=== PATIENT | male | born 1955 | race Caucasian/White ===

== ENCOUNTER → 2020-06-23 10:49 | Outpatient (BNVA) | payer MEDICARE, SELFPAY | PROVIDERS: Referring Provider Internal Medicine; Visit Provider Internal Medicine | DX: I25.10 Atherosclerotic heart disease of native coronary artery without angina pectoris (principal); I10 Essential (primary) hypertension; Z95.3 Presence of xenogenic heart valve | CPT/HCPCS: 99212 ==

== ENCOUNTER 2020-12-19 10:11 | Outpatient (REF) | payer MEDICARE, SELFPAY ==
[2020-12-19 11:10] LABS: Estimated Average Glucose 143 mg/dL; Hemoglobin A1c % 6.6 %
[2020-12-19 11:22] LABS: Alanine Aminotransferase 19 U/L (0-40); Albumin Level 4.3 g/dL (3.5-5.0); Alkaline Phosphatase 129 U/L (39-117); Aspartate Amino Transferase 17 U/L (5-37); Bilirubin Direct 0.2 mg/dL (0.0-0.5); Bilirubin Total 0.6 mg/dL (0.0-1.0); Cholesterol 102 mg/dL; Glucose Fasting 122 mg/dL (60-99); HDL Cholesterol 39 mg/dL; LDL Cholesterol Calculated 48 mg/dl; Total Protein 6.9 g/dL (6.5-8.0); Triglycerides 75 mg/dL
[2020-12-19 11:31] LABS: Reflex LDLD? No
== END 2020-12-19 10:12 | disposition home or self-care (01) ==
LOC: HO.LNP 10:11
PROVIDERS: Visit Provider Internal Medicine
DX: I25.811 Atherosclerosis of native coronary artery of transplanted heart without angina pectoris (principal); E11.9 Type 2 diabetes mellitus without complications
CPT/HCPCS: 80061; 80076; 82947; 83036

== ENCOUNTER 2021-06-20 11:06 | Outpatient (REF) | payer MEDICARE, SELFPAY ==
[2021-06-20 11:08] LABS: MANUAL DIFF FLAG NO
[2021-06-20 11:29] LABS: Appearance Urine CLEAR; Color Urine YELLOW; Glucose Urine UA NEG (NEG); Leukocyte Esterase Urine NEG (NEG); Nitrite Urine NEG (NEG); Specific Gravity - Urine 1.015 (1.005-1.025); Urine Blood NEG (NEG); Urine Ketones NEG (NEG); Urine Protein NEG (NEG-TRACE)
[2021-06-20 11:39] LABS: Basophils Percent Auto 0.4 % (0-2); Eosinophils Absolute Auto 0.4 X10*3/uL (0.0-0.4); Eosinophils Percent Auto 3.9 % (0-4); Hematocrit 41.9 % (42.0-52.0); Hemoglobin 13.5 g/dl (14.0-18.0); Imm Gran Abs Auto 0.04 X10*3/uL (0.00-0.03); Imm Gran Pct Auto 0.4 % (0.0-0.4); Lymphocytes Absolute Auto 3.2 X10*3/uL (1.2-4.9); Lymphocytes Percent Auto 29.6 % (20-40); Mean Corpuscular HGB Conc 32.2 g/dl (31.0-36.0); Mean Corpuscular Hemoglobin 29.3 pg (27.0-33.0); Mean Corpuscular Volume 90.9 fL (80.0-98.0); Mean Platelet Volume 10.4 fL (9.4-12.4); Monocytes Absolute Auto 1.1 X10*3/uL (0.1-1.2); Monocytes Percent Auto 10.3 % (2-11); Neutrophils Absolute Auto 5.9 x10*3/uL (2.0-8.3); Neutrophils Percent Auto 55.4 % (45-73); Platelet Count 272 X10*3/uL (160-400); Red Blood Count 4.61 X10*6/uL (4.60-5.80); Red Cell Distribution Width 14.8 % (11.0-16.0); White Blood Count 10.6 X10*3/uL (4.8-10.8)
[2021-06-20 12:19] LABS: Alanine Aminotransferase 24 U/L (0-40); Albumin Level 4.5 g/dL (3.5-5.0); Alkaline Phosphatase 116 U/L (39-117); Anion Gap 13 (12-20); Aspartate Amino Transferase 21 U/L (5-37); Bilirubin Total 0.7 mg/dL (0.0-1.0); Blood Urea Nitrogen 19 mg/dL (9-16); Calcium 9.5 mg/dL (8.4-10.2); Carbon Dioxide 27 mmol/L (22-29); Chloride 103 mmol/L (96-108); Cholesterol 123 mg/dL; Estimated Glomerular Filt Rate 45; Glucose Fasting 118 mg/dL (60-99); HDL Cholesterol 37 mg/dL; LDL Cholesterol Calculated 63 mg/dl; Potassium 4.2 mmol/L (3.3-5.1); Sodium 139 mmol/L (135-145); Total Protein 7.4 g/dL (6.5-8.0); Triglycerides 119 mg/dL
[2021-06-20 12:24] LABS: Creatinine Urine 86.08 mg/dL; Microalbum/Creatinine Ratio Ur 47.6 ug/mg cr
[2021-06-20 12:27] LABS: Estimated Average Glucose 140 mg/dL; Hemoglobin A1c % 6.5 %; Reflex LDLD? No
== END 2021-06-20 11:07 | disposition home or self-care (01) ==
LOC: HO.LNP 11:06
PROVIDERS: PCP Internal Medicine; Visit Provider Internal Medicine
DX: Z00.00 Encounter for general adult medical examination without abnormal findings (principal); I10 Essential (primary) hypertension; E11.9 Type 2 diabetes mellitus without complications
CPT/HCPCS: 80053; 80061; 81003; 82043; 83036; 84153; 85025

== ENCOUNTER 2021-08-02 07:56 | Outpatient (REF) | payer MEDICARE, SELFPAY ==
--- NOTE | ~2021-08-02 | XR_ITS ---
EXAMINATION: XR SHOULDER, RIGHT CLINICAL INFORMATION: Pain in right shoulder COMPARISON: None TECHNIQUE: Three views of the right shoulder. FINDINGS: No acute visible fracture or dislocation. Cortical thickening along the lateral aspect of the proximal to mid humeral diaphysis may represent sequela of remote trauma. Mild to moderate degenerative changes of the glenohumeral and acromioclavicular joint with joint space narrowing, sclerosis, subchondral cystic changes, and periarticular osteophyte formation. Joint spaces and alignment are otherwise maintained. Soft tissues are unremarkable. Visualized portions of the right chest are unremarkable. XR/XR shoulder RT min 2V IMPRESSION: 1. No acute visible fracture or dislocation. 2. Cortical thickening along the lateral aspect of the proximal to mid humeral diaphysis may represent sequela of remote trauma. 3. Mild to moderate degenerative changes of the glenohumeral and acromioclavicular joint.
== END 2021-08-02 07:57 | disposition home or self-care (01) ==
LOC: HO.HOSX 07:56
PROVIDERS: Visit Provider Physician Assistant
DX: M19.011 Primary osteoarthritis, right shoulder (principal); M75.81 Other shoulder lesions, right shoulder
CPT/HCPCS: 20610; 73030; 99202; J1040

== ENCOUNTER 2021-09-25 10:39 | Outpatient (REF) | payer MEDICARE, SELFPAY ==
[2021-09-25 12:03] LABS: Blood Urea Nitrogen 20 mg/dL (9-16); Estimated Glomerular Filt Rate 50
== END 2021-09-25 10:40 | disposition home or self-care (01) ==
LOC: HO.LNP 10:39
PROVIDERS: PCP Internal Medicine; Visit Provider Internal Medicine
DX: R79.89 Other specified abnormal findings of blood chemistry (principal)
CPT/HCPCS: 82565; 84520

== ENCOUNTER 2021-12-26 10:47 | Outpatient (REF) | payer MEDICARE, SELFPAY ==
[2021-12-26 12:09] LABS: Alanine Aminotransferase 79 U/L (0-40); Albumin Level 4.1 g/dL (3.5-5.0); Alkaline Phosphatase 180 U/L (39-117); Aspartate Amino Transferase 31 U/L (5-37); Bilirubin Direct 0.2 mg/dL (0.0-0.5); Bilirubin Total 0.4 mg/dL (0.0-1.0); Blood Urea Nitrogen 20 mg/dL (9-16); Cholesterol 101 mg/dL; Estimated Glomerular Filt Rate 46; Glucose Fasting 90 mg/dL (60-99); HDL Cholesterol 27 mg/dL; LDL Cholesterol Calculated 52 mg/dl; Total Protein 7.1 g/dL (6.5-8.0); Triglycerides 114 mg/dL
[2021-12-26 13:44] LABS: Estimated Average Glucose 151 mg/dL; Hemoglobin A1c % 6.9 %
[2021-12-26 13:49] LABS: Reflex LDLD? No
== END 2021-12-26 10:48 | disposition home or self-care (01) ==
LOC: HO.LNP 10:47
PROVIDERS: PCP Internal Medicine; Visit Provider Internal Medicine
DX: I10 Essential (primary) hypertension (principal); E11.9 Type 2 diabetes mellitus without complications; I25.811 Atherosclerosis of native coronary artery of transplanted heart without angina pectoris
CPT/HCPCS: 80061; 80076; 82565; 82947; 83036; 84520

== ENCOUNTER 2022-02-16 07:06 | Emergency (ER) | payer MEDICARE, SELFPAY ==
--- NOTE | ~2022-02-16 | XR_ITS ---
EXAMINATION: XR CHEST CLINICAL INFORMATION: Cough. COMPARISON: Chest radiograph dated 05/07/2017. TECHNIQUE: 2 views of the chest were obtained. FINDINGS: Interval sternal wires and valvuloplasty. Stable cardiomediastinal silhouette. No pleural effusion or pneumothorax. No airspace consolidation. XR/XR chest 2V IMPRESSION: No acute cardiopulmonary findings.
[2022-02-16 07:10] VITALS: BP 161/101; PULSE 58; RESP 20; TEMP 36.6; O2SAT 99; BMI 28.3
[2022-02-16 07:30] LABS: COVID-19 Test Positive (Negative)
--- NOTE | 2022-02-16 09:03 | ED_ITS ---
HPI - URI/Sore Throat General Chief Complaint: Upper Respiratory Symptoms Stated Complaint: fever/diarrhea/dizziness Time Seen by Provider: 02/16/22 09:03 Source: patient Mode of arrival: ambulatory Limitations: no limitations History of Present Illness HPI Narrative: 66 yo male with history of pre-diabetes, CAD, HTN, chronic pain, HLD presents to the ER from home reporting 4-5 days of headaches, intermittent subjective fevers, body aches, dry cough and feeling slightly weak. He reports his girlfriend was recently diagnosed with COVID-19. He denies any SOB or chest pain. He is vaccinated and boosted. He has been taking tylenol with good effect. He reported diarrhea on days 1-2 but now resolved. Tolerating normal PO. No abdomainal pain. MD elicited complaint: fever, cough and nasal congestion Onset (ago): day(s) (4) Consistency: constant Severity: moderate Able to tolerate fluids by mouth: Yes Exacerbating factors: nothing Relieving factors: OTC cold medicine Associated symptoms: fever, chills, myalgias, headache, nasal congestion, sore throat and cough Treatments prior to arrival: none Related Data Home Medications Medication Instructions Recorded Confirmed aspirin 81 mg tablet,delayed 81 mg PO DAILY 06/23/20 06/23/20 release lisinopril 40 mg tablet 40 mg PO DAILY 06/23/20 06/23/20 metoprolol tartrate 50 mg tablet 50 mg PO BID 06/23/20 06/23/20 tramadol 50 mg tablet mg PO 06/23/20 06/23/20 Previous Rx's Medication Instructions Recorded atorvastatin 40 mg tablet 40 mg PO DAILY #90 tabs 09/20/20 amlodipine 10 mg tablet 10 mg PO DAILY #90 tabs 09/04/21 Allergies Allergy/AdvReac Type Severity Reaction Status Date / Time No Known Allergies Allergy Verified 08/02/21 08:58 Review of Systems Review of Systems: Constitutional: +Fever, + Chills ENT/Mouth: +sore throat, No Rhinorrhea, No Swallowing Difficulty Cardiovascular: No Chest Pain, No SOB, No Orthopnea, No Edema Respiratory: + Cough, No Sputum, No Wheezing, No dyspnea Gastrointestinal: No Nausea, No Vomiting, + Diarrhea, No abdominal Pain Musculoskeletal: No joint pain, No Myalgias Skin: No Skin Lesions, No rash Neuro: No Weakness, No Numbness, No Dizziness, No Headache Psych: No Anxiety/Panic, No Depression Heme/Lymph: No Bruising, No Lymphadenopathy PMFSH Past Medical History Medical History Atherosclerotic cardiovascular disease Essential hypertension Surgical History History of aortic valve replacement (~09/27/17) History of cardiac catheterization (~08/07/17) Family History Family History Father No problems noted. Mother No problems noted. Social History Social History (Updated 08/02/21 @ 09:29 by You Lawson) Advance Directives: No Advance Directives Information Provided: Yes Current occupational status: employed and disabled Current occupation: [employer] Physical Exam Vital Signs: Vital Signs: Last Vital Signs Temp 97.9 F 02/16/22 07:10 Pulse 58 02/16/22 07:10 Resp 20 02/16/22 07:10 BP 161/101 H 02/16/22 07:10 Pulse Ox 99 02/16/22 07:10 O2 Del Method 02/16/22 07:10 BMI result Body Mass Index 28.3 Appearance: Alert. Oriented X3. No acute distress. Eyes: Pupils equal, round and reactive to light. ENT: Pharynx normal. Neck: Normal inspection. Neck supple. CVS: Normal heart rate and rhythm. Pulses normal. Respiratory: No respiratory distress. Breath sounds normal. Abdomen: Soft and nontender. +BS x4 Skin: Skin warm and dry. Normal skin color. Normal skin turgor. No rashes. Extremities: No lower extremity edema. Neuro: Oriented X 3. Grossly normal, nonfocal Course Course Course Narrative: 66-year-old male presents to the ER for flu-like symptoms for the last 4 days. He has been run his girlfriend who is COVID positive. He is fully vaccinated. On arrival to the ER today his vital signs are within normal limits, SpO2 99% on room air. No respiratory distress and is lungs are clear on examination. He has had symptoms for 4 5 days now. He does not qualify for antibodies. Risks and benefits of paxlovid discussed, will defer. At this time patient is stable for discharge home with supportive care. We discussed return precautions. Sta ble for DC home. MDM - URI/Sore Throat Lab Data Labs: Lab Results 02/16/22 Range/Units 07:18 COVID-19 (DC) Positive A (Negative) COVID-19 Clin Com See Note Critical Care Time Critical Care Time Critical Care Time: No Discharge Plan Discharge Clinical Impression: COVID-19 Patient Disposition: Home, Self-Care Instructions: Covid-19 Viral Syndrome and Novel Coronavirus (ED) Hey/Ath Additional Instructions: You were found to be COVID-19 POSITIVE today. Your chest x-ray and oxygen levels were normal. Rest. Drink plenty of fluids. Do not go out in public for the next 6-7 days. Take over the counter cold/flu medications as needed for your symptoms. Take Tylenol and/or Motrin as needed for fevers and body aches. Follow up with your doctor this week. If you shortness of breath worsens, if you develop difficulty breathing or any other concerning symptom come back to the ER for further evaluation. Prescriptions: No Action atorvastatin 40 mg tablet 40 mg PO DAILY Qty: 90 3RF amlodipine 10 mg tablet 10 mg PO DAILY Qty: 90 2RF Rx Instructions: Please call and schedule cardiology appt lisinopril 40 mg tablet 40 mg PO DAILY aspirin 81 mg tablet,delayed release (DR/EC) 81 mg PO DAILY metoprolol tartrate 50 mg tablet 50 mg PO BID tramadol 50 mg tablet PO Referrals: Hakeem Nixon MD [Primary Care Provider] - (COVID+) Stand Alone Forms: Work/School Release
== END 2022-02-16 09:36 | disposition home or self-care (01) ==
PROVIDERS: Emergency Provider Student in an Organized Health Care Education/Training Program; PCP Internal Medicine
DX: U07.1 COVID-19 (principal); R53.1 Weakness
CPT/HCPCS: 71046; 87635; 99283

== ENCOUNTER 2022-03-01 10:39 | Outpatient (REF) | payer MEDICARE, SELFPAY ==
[2022-03-01 11:23] LABS: Blood Urea Nitrogen 19 mg/dL (9-16)
== END 2022-03-01 10:40 | disposition home or self-care (01) ==
LOC: HO.LNP 10:39
PROVIDERS: Visit Provider Internal Medicine
DX: R79.9 Abnormal finding of blood chemistry, unspecified (principal)
CPT/HCPCS: 84520

== ENCOUNTER 2022-06-28 10:58 | Outpatient (REF) | payer MEDICARE, SELFPAY ==
[2022-06-28 11:03] LABS: MANUAL DIFF FLAG NO
[2022-06-28 11:44] LABS: Basophils Absolute Auto 0.1 X10*3/uL (0.0-0.2); Basophils Percent Auto 0.4 % (0-2); Eosinophils Absolute Auto 0.5 X10*3/uL (0.0-0.4); Eosinophils Percent Auto 4.2 % (0-4); Hematocrit 41.1 % (42.0-52.0); Hemoglobin 13.5 g/dl (14.0-18.0); Imm Gran Abs Auto 0.03 X10*3/uL (0.00-0.03); Imm Gran Pct Auto 0.3 % (0.0-0.4); Lymphocytes Absolute Auto 2.8 X10*3/uL (1.2-4.9); Lymphocytes Percent Auto 24.9 % (20-40); Mean Corpuscular HGB Conc 32.8 g/dl (31.0-36.0); Mean Corpuscular Hemoglobin 29.5 pg (27.0-33.0); Mean Corpuscular Volume 89.9 fL (80.0-98.0); Mean Platelet Volume 10.2 fL (9.4-12.4); Monocytes Absolute Auto 1.2 X10*3/uL (0.1-1.2); Neutrophils Absolute Auto 6.7 x10*3/uL (2.0-8.3); Neutrophils Percent Auto 59.2 % (45-73); Platelet Count 233 X10*3/uL (160-400); Red Blood Count 4.57 X10*6/uL (4.60-5.80); Red Cell Distribution Width 14.6 % (11.0-16.0); White Blood Count 11.3 X10*3/uL (4.8-10.8)
[2022-06-28 11:55] LABS: Estimated Average Glucose 137 mg/dL; Hemoglobin A1c % 6.4 %
[2022-06-28 12:04] LABS: Appearance Urine Clear; Color Urine Yellow; Glucose Urine UA Negative (Negative); Leukocyte Esterase Urine Negative (Negative); Nitrite Urine Negative (Negative); Urine Blood Negative (Negative); Urine Ketones Negative (Negative); Urine Protein Negative (Neg-Trace)
[2022-06-28 12:10] LABS: Bacteria Urine None Seen (None Seen); Hyaline Casts Urine 0-2 /LPF (0-2); RBC Urine 0-2 /HPF (0-2); Squamous Epithelial Cell Urine 0-2 /HPF (0-2); WBC Urine 0-5 /HPF (0-5)
[2022-06-28 12:13] LABS: Alanine Aminotransferase 18 U/L (0-40); Albumin Level 4.4 g/dL (3.5-5.0); Alkaline Phosphatase 133 U/L (39-117); Anion Gap 12 (12-20); Aspartate Amino Transferase 20 U/L (5-37); Bilirubin Total 0.5 mg/dL (0.0-1.0); Blood Urea Nitrogen 18 mg/dL (9-16); Calcium 9.5 mg/dL (8.4-10.2); Carbon Dioxide 28 mmol/L (22-29); Chloride 105 mmol/L (96-108); Cholesterol 118 mg/dL; Estimated Glomerular Filt Rate 50; Glucose Fasting 144 mg/dL (60-99); HDL Cholesterol 42 mg/dL; LDL Cholesterol Calculated 64 mg/dl; PSA,Total (Free>4and<10) 0.59 ng/mL (0.00-4.00); Potassium 4.3 mmol/L (3.3-5.1); Sodium 141 mmol/L (135-145); Total Protein 7.3 g/dL (6.5-8.0); Triglycerides 64 mg/dL
[2022-06-28 12:54] LABS: Creatinine Urine 134.77 mg/dL; Microalbum/Creatinine Ratio Ur 16.3 ug/mg cr
== END 2022-06-28 10:59 | disposition home or self-care (01) ==
LOC: HO.LNP 10:58
PROVIDERS: Visit Provider Internal Medicine
DX: Z00.00 Encounter for general adult medical examination without abnormal findings (principal); Z12.5 Encounter for screening for malignant neoplasm of prostate; I10 Essential (primary) hypertension; E11.9 Type 2 diabetes mellitus without complications; I25.811 Atherosclerosis of native coronary artery of transplanted heart without angina pectoris
CPT/HCPCS: 80053; 80061; 81001; 82043; 83036; 84153; 85025

== ENCOUNTER → 2022-08-14 15:41 | Outpatient (REF) | payer MEDICARE, SELFPAY ==
--- NOTE | 2022-08-14 15:44 | CA_ITS ---
Transthoracic Echocardiogram Amended Patient (Last, First, Middle): Rosas Kirkland, Gender: Male Date of : 1955 Age: 67 Procedure Date: 08/14/2022 Procedure Type: Transthoracic Echocardiogram Location: OP Height: 165.1 cm Weight: 74.84 kg BSA: 1.82 m2 Heart Rate: bpm BP: 108 / 60 mmHg Dairy Manager: ROSENDA Referring MD: Donal Hernandez MD Health Education Director: Maynor Colon MD Symptoms: Z95.3 - Presence of xenogenic heart valve Study Quality: Fair ECG Rhythm: Atrial Fibrillation Conclusions: - 1. Normal LV systolic function with mild LVH with impaired relaxation filling pattern with borderline elevated filling pressures 2. Moderately dilated left atrium 3. Normally function bioprosthetic aortic valve with mean gradient of 9 mmHg 4. Possible mild mitral stenosis 5. Normal RV systolic pressure with reduced RV systolic function 6. No gross pericardial effusion Findings Left Ventricle Normal left ventricular size and systolic function. There is mildly increased left ventricular wall thickness. The visually estimated ejection fraction is between 55-60%. Spectral Doppler is indicative of an impaired relaxation filling pattern. E/E prime ratio is between 8 and 15 consistent with indeterminate filling pressures. Peak GLS is -15.7%, which is reduced Right Ventricle Normal right ventricular cavity size. There is moderately decreased right ventricular systolic function. Atria The left atrium is moderately dilated. The right atrium is normal in size. Aortic Valve A bioprosthetic aortic valve is present. The prosthetic aortic valve appears to be functioning normally. The mean gradient is 9 mmHg. Mitral Valve There is moderate anterior and posterior mitral leaflet thickening. There is mild mitral annular calcification. There is no mitral valve regurgitation. There is mild mitral valve stenosis. Pulmonic Valve The pulmonic valve was not well visualized. Tricuspid Valve Likely normal tricuspid valve structure and function. There is mild tricuspid valve regurgitation. The right ventricular systolic pressure is normal. The right ventricular systolic pressure is 21 mmHg. Normal right atrial pressure. There is no evidence of pulmonary hypertension. Great Vessels All visible segments of the aorta are normal in size. The pulmonary artery was not well visualized. Venous The inferior vena cava is normal in size and collapses greater than 50% with inspiration. Pericardium/Pleural There is no evidence of pericardial effusion. Prior Study Comparison No significant change compared to prior study dated: 02/09/2020. Measurements 2D Linear Measurements IVSd: 1.33 0.6-0.9/0.6-1.0 cm LVIDd: 4.39 3.9-5.3/4.2-5.9 cm LVIDd Index: 2.41 2.4-3.2/2.2-3.1 cm/m2 LVIDs: 2.89 2.0-3.6 cm LVPWd: 1.30 0.7-1.1 cm LA Diam: 4.10 2.7-3.8/3.0-4.0 cm LAIDs Index: 2.25 1.5-2.3 cm/m2 LV Mass: 271.80 67-162/88-224 g LV Mass Index: 149.34 43-95/49-115 g/m2 LVOT Diam: 2.10 3.0+(-)1.3 cm 2D Volumes LA Vol: 49.00 2D Systolic Function EF 4C: 60.70 >55% EF 2C: 55.40 >55% EF BiP: 58.80 >55% Mitral Valve MV VTI: 0.50 MV Pk Garrett: 1.24 MV Mn Garrett: 0.67 MV Pk Grad: 6.00 MV Mn Grad: 2.00 MV Pk E: 1.14 MV PK A: 1.05 MV Decel Time: 513.00 E/A: 1.10 E'Lateral: 9.03 E'Medial: 6.42 E/E' Med: 17.80 E/E' Lat: 12.60 PHT: 150.00 MVA PHT: 1.47 MVA Continuity: 1.58 Decel [place]: 2.21 Aortic Valve AoV Pk Garrett: 2.05 AoV Mn Garrett: 1.41 AoV VTI: 0.42 AoV Pk Grad: 17.00 Aov Mn Grad: 9.00 [place] Cont.VTI: 1.88 LVOT LVOT Pk Garrett: 0.97 LVOT Mn Garrett: 0.69 LVOT VTI: 0.23 LVOT Pk Grad: 4.00 LVOT Mn Grad: 2.00 LVOT Diam: 2.10 LVOT Area: 3.46 Diastolic Function MV Pk E: 1.14 MV Pk A: 1.05 E/A: 1.10 E'Medial: 6.42 E/E' Med: 17.80 E' Laterial: 9.03 E/E' Lat: 12.60 Right Ventricle TAPSE (mm): 18.00 TVS' Garrett: 11.00 Tricuspid Valve TR Pk Garrett: 2.13 TR Pk Grad: 18.00 RA Press: 3.00 RVSP: 21.00 Great Vessels Aorta Ao Asc: 3.40 2.1-3.4 cm Updated in Other Vendor System with Status of Final Maynor Colon MD electronically signed on 08/16/2022 4:48:00 PM with status of Final
== END ==
LOC: HO.CARD 15:41
PROVIDERS: PCP Internal Medicine; Visit Provider Internal Medicine
DX: Z95.3 Presence of xenogenic heart valve (principal)
CPT/HCPCS: 93306; 93356

== ENCOUNTER → 2022-09-06 14:30 | Outpatient (BNVA) | payer MEDICARE, SELFPAY | PROVIDERS: PCP Internal Medicine; Referring Provider Internal Medicine; Visit Provider Internal Medicine | DX: I25.10 Atherosclerotic heart disease of native coronary artery without angina pectoris (principal); I10 Essential (primary) hypertension; I34.2 Nonrheumatic mitral (valve) stenosis; Z95.3 Presence of xenogenic heart valve | CPT/HCPCS: 93005; 99212 ==

== ENCOUNTER 2022-10-01 07:36 | Emergency (ER) | payer OTHER, SELFPAY ==
[2022-10-01 07:39] VITALS: BP 151/82; PULSE 65; RESP 14; TEMP 36.7; O2SAT 100; BMI 28.3
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
== END 2022-10-01 08:28 | disposition home or self-care (01) ==
PROVIDERS: Emergency Provider Student in an Organized Health Care Education/Training Program; PCP Internal Medicine
DX: S39.012A Strain of muscle, fascia and tendon of lower back, initial encounter (principal); M54.2 Cervicalgia; R51.9 Headache, unspecified; V43.52XA Car driver injured in collision with other type car in traffic accident, initial encounter; Y93.9 Activity, unspecified; Y92.410 Unspecified street and highway as the place of occurrence of the external cause; Y99.9 Unspecified external cause status; Z79.899 Other long term (current) drug therapy
CPT/HCPCS: 99283; 99284

== ENCOUNTER 2022-12-28 11:55 | Outpatient (REF) | payer MEDICARE, SELFPAY ==
[2022-12-28 12:41] LABS: Estimated Average Glucose 131 mg/dL; Hemoglobin A1c % 6.2 %
[2022-12-28 13:04] LABS: Alanine Aminotransferase 20 U/L (0-40); Albumin Level 4.2 g/dL (3.5-5.0); Alkaline Phosphatase 133 U/L (39-117); Aspartate Amino Transferase 23 U/L (5-37); Bilirubin Direct 0.2 mg/dL (0.0-0.5); Bilirubin Total 0.6 mg/dL (0.0-1.0); Cholesterol 133 mg/dL; Glucose Fasting 108 mg/dL (60-99); HDL Cholesterol 45 mg/dL; LDL Cholesterol Calculated 70 mg/dl; Total Protein 6.9 g/dL (6.5-8.0); Triglycerides 90 mg/dL
[2022-12-28 14:04] LABS: Reflex LDLD? No
== END 2022-12-28 11:56 | disposition home or self-care (01) ==
LOC: HO.LNP 11:55
PROVIDERS: Visit Provider Internal Medicine
DX: E11.9 Type 2 diabetes mellitus without complications (principal); I25.811 Atherosclerosis of native coronary artery of transplanted heart without angina pectoris
CPT/HCPCS: 80061; 80076; 82947; 83036

== ENCOUNTER 2023-06-28 10:46 | Outpatient (REF) | payer MEDICARE, SELFPAY ==
[2023-06-28 10:54] LABS: MANUAL DIFF FLAG NO
[2023-06-28 10:59] LABS: Basophils Absolute Auto 0.1 X10*3/uL (0.0-0.2); Basophils Percent Auto 0.5 % (0-2); Eosinophils Absolute Auto 0.5 X10*3/uL (0.0-0.4); Eosinophils Percent Auto 4.4 % (0-4); Hematocrit 40.7 % (42.0-52.0); Hemoglobin 13.4 g/dl (14.0-18.0); Imm Gran Abs Auto 0.04 X10*3/uL (0.00-0.03); Imm Gran Pct Auto 0.3 % (0.0-0.4); Lymphocytes Absolute Auto 3.3 X10*3/uL (1.2-4.9); Lymphocytes Percent Auto 27.6 % (20-40); Mean Corpuscular HGB Conc 32.9 g/dl (31.0-36.0); Mean Corpuscular Hemoglobin 29.6 pg (27.0-33.0); Mean Corpuscular Volume 89.8 fL (80.0-98.0); Mean Platelet Volume 9.8 fL (9.4-12.4); Monocytes Absolute Auto 1.3 X10*3/uL (0.1-1.2); Monocytes Percent Auto 10.8 % (2-11); Neutrophils Absolute Auto 6.8 x10*3/uL (2.0-8.3); Neutrophils Percent Auto 56.4 % (45-73); Platelet Count 261 X10*3/uL (160-400); Red Blood Count 4.53 X10*6/uL (4.60-5.80); Red Cell Distribution Width 14.8 % (11.0-16.0)
[2023-06-28 11:01] LABS: Appearance Urine Clear; Color Urine Yellow; Glucose Urine UA Negative (Negative); Leukocyte Esterase Urine Negative (Negative); Nitrite Urine Negative (Negative); PH 5.5 (5.0-9.0); Specific Gravity - Urine 1.015 (1.005-1.025); Urine Blood Negative (Negative); Urine Ketones Negative (Negative); Urine Protein Negative (Neg-Trace)
[2023-06-28 11:05] LABS: Bacteria Urine None Seen (None Seen); Hyaline Casts Urine 0-2 /LPF (0-2); RBC Urine 0-2 /HPF (0-2); Squamous Epithelial Cell Urine 0-2 /HPF (0-2); WBC Urine 0-5 /HPF (0-5)
[2023-06-28 11:31] LABS: Alanine Aminotransferase 13 U/L (0-40); Albumin Level 4.5 g/dL (3.5-5.0); Alkaline Phosphatase 143 U/L (39-117); Anion Gap 13 (12-20); Aspartate Amino Transferase 17 U/L (5-37); Bilirubin Total 0.3 mg/dL (0.0-1.0); Blood Urea Nitrogen 19 mg/dL (9-16); Calcium 9.5 mg/dL (8.4-10.2); Carbon Dioxide 30 mmol/L (22-29); Chloride 105 mmol/L (96-108); Cholesterol 125 mg/dL (<200); Estimated Glomerular Filt Rate 44; Glucose Random 131 mg/dL (60-115); HDL Cholesterol 41 mg/dL (>40); LDL Cholesterol Calculated 58 mg/dL (<100); Sodium 143 mmol/L (135-145); Triglycerides 131 mg/dL (<150)
[2023-06-28 11:45] LABS: PSA,Total (Free>4and<10) 0.73 ng/mL (0.00-4.00)
[2023-06-28 11:52] LABS: Creatinine Urine 86.06 mg/dL; Microalbum/Creatinine Ratio Ur 16.2 ug/mg cr (<30)
[2023-06-28 11:58] LABS: Estimated Average Glucose 143 mg/dL; Hemoglobin A1c % 6.6 % (<6.0)
== END 2023-06-28 10:47 | disposition home or self-care (01) ==
LOC: HO.LNP 10:46
PROVIDERS: Visit Provider Internal Medicine
DX: Z00.00 Encounter for general adult medical examination without abnormal findings (principal); I10 Essential (primary) hypertension; E11.9 Type 2 diabetes mellitus without complications; Z12.5 Encounter for screening for malignant neoplasm of prostate
CPT/HCPCS: 80053; 80061; 81001; 82043; 82570; 83036; 84153; 85025

== ENCOUNTER 2023-09-10 15:15 | Outpatient (AMB) | payer MEDICARE, SELFPAY ==
--- NOTE | 2023-09-10 15:19 | MHC.OFFVIS ---
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 In 2018, he had symptomatic aortic valve stenosis that led to bioprosthetic valve replacement. Overall, he feels fine. No complaints like angina or shortness of breath or in fact anything cardiac sounding. Seems to be getting along okay. [facility] Medical History Atherosclerotic cardiovascular disease Essential hypertension Surgical History History of cardiac catheterization (~08/07/17) History of aortic valve replacement (~09/27/17) Family History Father No problems noted. Mother No problems noted. Social History Alcohol intake: current Alcohol intake frequency: a few times a week Patient Tobacco Use Status: Current someday Tobacco user Tobacco use type: Cigarette Cigarettes Per Day: 8 Current occupational status: employed and disabled Current occupation: [employer] Review of Systems Const Denies weakness ENT Denies dizziness Card Denies chest pain with activity, Denies syncope, Denies rapid heart rate, Denies pedal edema, Denies edema, Denies leg edema, Denies lightheadedness, Denies palpitations, Denies dyspnea on exertion and Denies orthopnea Resp Denies cough and Denies dyspnea on exertion GI Denies hematochezia and Denies change in stool character Musc Denies abnormal gait, Denies muscle cramps, Denies muscle weakness, Denies numbness, Denies radiating pain into limb and Denies tingling Neuro Denies abnormal gait, Denies dizziness, Denies syncope, Denies numbness, Denies tingling and Denies weakness Endo Denies palpitations Physical Exam Vital Signs: Last Vital Signs Pulse 61 09/10/23 15:21 BP 108/74 09/10/23 15:21 BMI result Body Mass Index 27.5 Const General: comfortable and no acute distress Orientation/consciousness: patient oriented x3 HEENT Other: Unremarkable Head: Yes normal to inspection Neck Neck: Yes normal visual inspection Chest Chest palpation & inspection: normal inspection of the chest Resp Auscultation: clear to auscultation bilaterally Cardio Palpation: normal PMI Heart sounds: S1 normal heart sound present, S2 normal heart sound present, no gallops, Murmur heart sound present systolic II/ and no rubs GI Palpation (GI): Soft to palpation Back/Spine/Pelvis Other: unremarkable Skin General skin exam: no rashes or lesions noted Neuro General: patient oriented x3 Extrem General: Yes normal to inspection Psych Mental Status: mental status grossly normal Office Procedures EKG Details: EKG with sinus rhythm at 61/Min; no significant ST-T changes and otherwise unremarkable. [place]. [id number], Complete Assessment & Plan Assessment & Plan (1) Status post aortic valve replacement with bioprosthetic valve: Code(s): Z95.3 - Presence of xenogenic heart valve Plan: In the last echocardiogram, normally functioning bioprosthetic aortic valve with a mean gradient of 9 mm Hg. Continue long-term aspirin. Infective endocarditis prophylaxis per protocol. (2) Nonrheumatic mitral (valve) stenosis: Code(s): I34.2 - Nonrheumatic mitral (valve) stenosis Plan: Echocardiogram with moderate anterior/posterior mitral valve thickening and mild mitral annular calcification. Suspected mild mitral stenosis. Clinically, he is got absolutely no symptoms. (3) Atherosclerotic cardiovascular disease: Code(s): I25.10 - Atherosclerotic heart disease of [place] coronary artery without angina pectoris Plan: Preoperative cardiac catheterization had mild disease in the LAD but otherwise unremarkable. Continue statins. Last LDL 58mg/dL. (4) Essential hypertension: Code(s): I10 - Essential (primary) hypertension Plan: Stable. On metoprolol, amlodipine, lisinopril. Coding Level of Care Code Est Pt Level 4 (66637) Diagnoses Status post aortic valve replacement with bioprosthetic valve Z95.3 Nonrheumatic mitral (valve) stenosis I34.2 Atherosclerotic cardiovascular disease I25.10 Essential hypertension I10 CPT Codes EKG - CPT: 40170-[id number], Complete ([id number])
[2023-09-10 15:21] VITALS: BP 108/74; PULSE 61; BMI 27.5
== END 2023-09-10 15:34 | disposition home or self-care (01) ==
PROVIDERS: PCP Internal Medicine; Visit Provider Internal Medicine
DX: Z95.3 Presence of xenogenic heart valve (principal); I34.2 Nonrheumatic mitral (valve) stenosis; I25.10 Atherosclerotic heart disease of native coronary artery without angina pectoris; I10 Essential (primary) hypertension
CPT/HCPCS: 93010; 99214

== ENCOUNTER → 2023-09-10 15:15 | Outpatient (BNVA) | payer MEDICARE, SELFPAY | PROVIDERS: Visit Provider Internal Medicine | DX: I34.2 Nonrheumatic mitral (valve) stenosis (principal); I25.10 Atherosclerotic heart disease of native coronary artery without angina pectoris; I10 Essential (primary) hypertension; Z95.3 Presence of xenogenic heart valve | CPT/HCPCS: 93005; 99212 ==

== ENCOUNTER 2023-10-16 11:48 | Day surgery (SDC) | payer MEDICARE, SELFPAY ==
[2023-10-14 11:11] VITALS: BMI 27.5
[2023-10-16 12:40] VITALS: BMI 26.7
[2023-10-16 13:01] VITALS: BP 116/75; PULSE 63; RESP 18; TEMP 36.2; O2SAT 98
[2023-10-16] MEDS: Lactated Ringers 1,000 ML 100 ML IVCONT (13:12)
--- NOTE | 2023-10-16 13:14 | MHC.SHP ---
Pre-Procedural Eval Section A - 24 Hr Update-Section A only Date of Service: 10/16/23 The patient is an INPATIENT: No Changes since office visit: No Cold of Flu in the past 2 weeks, No New Medical Problems, No Changes in Medication and No Patient answered all questions The patient has been examined within 24 hours of the surgical procedure. The History & Physical has been completed within 30 days and I have reviewed it.: Yes Section B - Complete if H&P > 30 days Chief Complaint: Encounter for screening for malignant neoplasm of Allergies: Allergies Allergy/AdvReac Type Severity Reaction Status Date / Time No Known Allergies Allergy Verified 09/10/23 15:22 Plan I have reviewed the history and physical and performed a pertinent physical examination on my patient. No changes have occurred unless specified. Time Spent With Patient Time: Total time managing care of this patient today ____ minutes.
--- NOTE | 2023-10-16 13:21 | HO.ANESPROP2 ---
[facility] Active Problems Active Problems: All Active Problems Nonrheumatic mitral (valve) stenosis (Acute) COVID-19 (Acute) Tendinitis of right rotator cuff (Acute) Arthritis of right acromioclavicular joint (Acute) Status post aortic valve replacement with bioprosthetic valve (Acute) Essential hypertension (Acute) Atherosclerotic cardiovascular disease (Acute) Past Medical History Medical History Non-rheumatic mitral valve stenosis Aortic stenosis Back pain Essential hypertension Atherosclerotic cardiovascular disease Family History Family History Father No problems noted. Mother No problems noted. Family history of problems with anesthesia: No Surgical History Surgical History H/O colonoscopy Hx of hernia repair History of cardiac catheterization (~08/07/17) History of aortic valve replacement (~09/27/17) History of Problems with Anesthesia: No Social History Social History Alcohol intake: current Alcohol intake frequency: a few times a week Patient Tobacco Use Status: Current everyday Tobacco user Tobacco use type: Cigarette Cigarettes Per Day: 4 Years Smoked: 60 Use of substances other than those prescribed or required for medical reasons: No Are you DNR?: No Advance Directives: No Advance Directives Information Provided: Yes Current occupational status: employed and disabled Current occupation: [employer] Meds Allergies Allergy/AdvReac Type Severity Reaction Status Date / Time No Known Allergies Allergy Verified 09/10/23 15:22 Active Medications: Current Medications Lactated Ringer's (Lr) 1,000 mls @ 100 mls/hr IVCONT .Q10H AMANDO Last Admin: 10/16/23 13:12 Dose: 100 mls/hr Ondansetron HCl (Ondansetron Hcl 4 Mg/2 Ml Vial) 4 mg IVPUSH ONCE PRN PRN Reason: Nausea and Vomiting Stop: 10/16/23 13:27 Home Medications ?Medication ?Instructions ?Recorded ?Confirmed ?Last Taken ?Type aspirin 81 mg tablet,delayed 81 mg PO DAILY 06/23/20 10/16/23 10/09/23 History release lisinopril 40 mg tablet 40 mg PO DAILY 06/23/20 10/16/23 10/16/23 09:00 History metoprolol tartrate 50 mg tablet 50 mg PO BID 06/23/20 10/14/23 Unknown History tramadol 50 mg tablet 50 mg PO DAILY PRN Pain 09/06/22 10/14/23 Unknown History Exam Height,Weight and Vital Signs: Height 5 ft 5 in Weight 72.688 kg Last Vital Signs Temp 97.2 F 10/16/23 13:01 Pulse 63 10/16/23 13:01 Resp 18 10/16/23 13:01 BP 116/75 10/16/23 13:01 Pulse Ox 98 10/16/23 13:01 O2 Del Method Room Air 10/16/23 13:01 Airway Mallampati Class: II TM Dist: >3cm Neck ROM: Full Denture: Upper and Lower Heart: rrr Lungs: clear Assessment and Plan Final Anesthetic Review Family History of Problems with Anesthesia: No History of Problems with Anesthesia: No NPO: Yes ASA Class: III Final Preanesthetic Review: No Changes in Pt Med Stat, Meds/Allgs Chart Reviewed, Consent Obtained/Reviewed and Anes Risks/Benef Reviewed Patient Risk: Intermediate Procedure Risk: Low Anesthetic Plan Anesthetic Plan: MAC: Disposition: Standard PACU
[2023-10-16 15:08] VITALS: BP 118/78; PULSE 62; RESP 16; TEMP 36.2; O2SAT 96
[2023-10-16 15:23] VITALS: BP 138/80; PULSE 67; RESP 15; O2SAT 98
[2023-10-16 15:38] VITALS: BP 142/86; PULSE 58; RESP 16; O2SAT 99
[2023-10-16 15:46] VITALS: TEMP 36.2
--- NOTE | 2023-10-16 21:32 | OP_ITS ---
DATE OF SERVICE: 10/16/2023 SURGEON: Yoseph Maldonado MD INDICATIONS: Colon cancer screening. PREOPERATIVE DIAGNOSIS: POSTOPERATIVE DIAGNOSIS: PROCEDURE PERFORMED: Colonoscopy to the terminal ileum with biopsy and snare polypectomy. ESTIMATED BLOOD LOSS: COMPLICATIONS: ANESTHESIA: Monitored anesthesia care. ASSISTANTS: SPECIMENS: DESCRIPTION OF PROCEDURE: A history and physical was performed. The risks and benefits of the procedure were explained to the patient. Informed consent was obtained. The patient was placed in the left lateral decubitus position. A digital rectal exam was performed and was found to be normal. The Olympus pediatric video colonoscope was introduced into the rectum and advanced to the cecum. The cecum was identified by transillumination, palpation, and identification of ileocecal valve. Examination was performed. The scope was removed. He tolerated the procedure well and was returned to the recovery area in stable condition. FINDINGS: The terminal ileum was examined and appeared normal. The visualized colonic mucosa was normal. The quality of the prep was good. Three polyps were identified, 2 removed with a cold snare, 1 was removed with a biopsy forceps. All were less than 10 mm. These were located at 60 cm, 40 cm, and 20 cm. Retroflexed examination showed moderately large internal hemorrhoids. IMPRESSION: Colon polyps. RECOMMENDATION: Follow up the biopsy results. MD SMILEY Diaz/PRATIMA / [phone]
== END 2023-10-16 16:11 | disposition home or self-care (01) ==
PROVIDERS: PCP Internal Medicine; Visit Provider Internal Medicine Gastroenterology
PROC: 0DJD8ZZ Inspection of Lower Intestinal Tract, Via Natural or Artificial Opening Endoscopic (ICD-10-PCS; CPT 45378; principal; 2023-10-16 13:30)
DX: Z12.11 Encounter for screening for malignant neoplasm of colon (principal); Z86.010 Personal history of colon polyps; D12.4 Benign neoplasm of descending colon; D12.5 Benign neoplasm of sigmoid colon; K64.8 Other hemorrhoids; I25.10 Atherosclerotic heart disease of native coronary artery without angina pectoris; I10 Essential (primary) hypertension; Z79.899 Other long term (current) drug therapy; Z79.82 Long term (current) use of aspirin; F17.210 Nicotine dependence, cigarettes, uncomplicated
CPT/HCPCS: 45385; 45380; 88305; J2704

== ENCOUNTER 2024-01-03 10:03 | Outpatient (REF) | payer MEDICARE, SELFPAY ==
[2024-01-03 10:57] LABS: Alanine Aminotransferase 15 U/L (0-40); Albumin Level 4.4 g/dL (3.5-5.0); Alkaline Phosphatase 127 U/L (39-117); Aspartate Amino Transferase 20 U/L (5-37); Bilirubin Direct 0.2 mg/dL (0.0-0.5); Bilirubin Total 0.5 mg/dL (0.0-1.0); Cholesterol 118 mg/dL (<200); Glucose Fasting 149 mg/dL (60-99); HDL Cholesterol 42 mg/dL (>40); LDL Cholesterol Calculated 54 mg/dL (<100); Total Protein 7.5 g/dL (6.5-8.0); Triglycerides 111 mg/dL (<150)
[2024-01-03 10:58] LABS: Estimated Average Glucose 143 mg/dL; Hemoglobin A1c % 6.6 % (<6.0)
[2024-01-03 11:12] LABS: Reflex LDLD? No
== END 2024-01-03 10:04 | disposition home or self-care (01) ==
LOC: HO.LNP 10:03
PROVIDERS: Visit Provider Internal Medicine
DX: E11.9 Type 2 diabetes mellitus without complications (principal); I25.10 Atherosclerotic heart disease of native coronary artery without angina pectoris
CPT/HCPCS: 80061; 80076; 82947; 83036

== ENCOUNTER 2024-08-04 10:38 | Outpatient (REF) | payer MEDICARE, SELFPAY ==
[2024-08-04 10:42] LABS: MANUAL DIFF FLAG NO
[2024-08-04 11:06] LABS: Basophils Absolute Auto 0.1 X10*3/uL (0.0-0.2); Basophils Percent Auto 0.7 % (0-2); Eosinophils Absolute Auto 0.3 X10*3/uL (0.0-0.4); Eosinophils Percent Auto 3.4 % (0-4); Hematocrit 44.8 % (42.0-52.0); Hemoglobin 14.2 g/dl (14.0-18.0); Imm Gran Abs Auto 0.02 X10*3/uL (0.00-0.03); Imm Gran Pct Auto 0.2 % (0.0-0.4); Lymphocytes Absolute Auto 2.2 X10*3/uL (1.2-4.9); Mean Corpuscular HGB Conc 31.7 g/dl (31.0-36.0); Mean Corpuscular Hemoglobin 28.9 pg (27.0-33.0); Mean Corpuscular Volume 91.1 fL (80.0-98.0); Mean Platelet Volume 9.9 fL (9.4-12.4); Monocytes Absolute Auto 0.9 X10*3/uL (0.1-1.2); Monocytes Percent Auto 10.5 % (2-11); Neutrophils Absolute Auto 4.8 x10*3/uL (2.0-8.3); Neutrophils Percent Auto 58.2 % (45-73); Platelet Count 254 X10*3/uL (160-400); Red Blood Count 4.92 X10*6/uL (4.60-5.80); Red Cell Distribution Width 15.5 % (11.0-16.0); White Blood Count 8.3 X10*3/uL (4.8-10.8)
[2024-08-04 11:08] LABS: Appearance Urine Clear; Color Urine Yellow; Glucose Urine UA Negative (Negative); Leukocyte Esterase Urine Negative (Negative); Nitrite Urine Negative (Negative); PH 6.5 (5.0-9.0); Specific Gravity - Urine 1.015 (1.005-1.025); Urine Blood Negative (Negative); Urine Ketones Negative (Negative); Urine Protein Negative (Neg-Trace)
[2024-08-04 11:15] LABS: Bacteria Urine None Seen (None Seen); Hyaline Casts Urine 0-2 /LPF (0-2); RBC Urine 0-2 /HPF (0-2); Squamous Epithelial Cell Urine 0-2 /HPF (0-2); WBC Urine 0-5 /HPF (0-5)
[2024-08-04 11:29] LABS: Alanine Aminotransferase 24 U/L (0-40); Albumin Level 4.5 g/dL (3.5-5.0); Alkaline Phosphatase 137 U/L (39-117); Anion Gap 6 (12-20); Aspartate Amino Transferase 22 U/L (5-37); Bilirubin Total 0.4 mg/dL (0.0-1.0); Blood Urea Nitrogen 26 mg/dL (9-16); Calcium 9.1 mg/dL (8.4-10.2); Carbon Dioxide 30 mmol/L (22-29); Chloride 113 mmol/L (96-108); Cholesterol 127 mg/dL (<200); Estimated Glomerular Filt Rate 44; Glucose Fasting 115 mg/dL (60-99); HDL Cholesterol 38 mg/dL (>40); LDL Cholesterol Calculated 68 mg/dL (<100); Potassium 5.2 mmol/L (3.3-5.1); Sodium 144 mmol/L (135-145); Total Protein 8.1 g/dL (6.5-8.0); Triglycerides 107 mg/dL (<150)
[2024-08-04 11:41] LABS: Estimated Average Glucose 148 mg/dL; Hemoglobin A1C 185.0566 umol/L; Hemoglobin A1c % 6.8 % (<6.0); Total Hemoglobin (HGBA1C) 3640.4134 umol/L
--- OUTSIDE RECORDS SUMMARY | 2024-08-04 11:46 | XMS_ITS ---
Demographics Address [address] [place] [address] Preferred Language en Marital Status Unknown Alevism Affiliation Unknown Race Ethnic Group or Author Organization [facility] Address [address] [place] [address] Support Name Relationship Address Phone ARLENE MCGEE Emergency Contact [address] [place] [address] WILLIS SINGH Guarantor Unknown Care Team Providers Care Mixing Machine Tender Cork Rod Name Role Phone Tiffani JEFFERSON, Hakeem Primary Care Provider Yoseph Gonzales Jr ALLERGIES No Known Allergies REASON FOR VISIT Patient presents today for a recall colonoscopy MEDICATIONS Medication SIG (Take, Route, Frequency, Duration) Notes Start Date End Date Status Aspirin Low Dose 81 MG TAKE 1 TABLET BY MOUTH EVERY DAY Oral for 90 Active MiraLax (colon prep) 8.3 ounce ((238) grams mixed with Gatorade or Crystal Light orally begin at 5:00 p.m. the day before the procedure for 1 day 09/30/2023 Active Terbinafine HCl 250 MG TAKE 1 TABLET BY MOUTH EVERY DAY FOR 90 DAYS Oral for 90 Active amLODIPine Besylate 10 MG Oral for 90 Active Metoprolol Tartrate 50 MG Oral for 90 Active Atorvastatin Calcium 40 MG TAKE 1 TABLET BY MOUTH EVERY DAY FOR 90 DAYS Oral for 90 Active Lisinopril 20 MG Orally Once a day Active traMADol HCl 50 MG Orally as needed Active SOCIAL HISTORY Tobacco Use: Social History Observation Description Date Details (start date - stop date) Current Smoker NA - NA Sex Assigned At : Social History Observation Description Sex Assigned At Unknown Tobacco Use/Smoking Question Answer Notes Patient is a current smoker How often do you smoke cigarettes? every day How many cigarettes a day do you smoke? 5 or les s Alcohol Screen Question Answer Notes Did you have a drink contain ing alcohol in the past year? Yes How often did you have a dri nk containing alcohol in the past year? 2 to 3 times a week (3 points) How many drinks did you have on a typical day when you were drinking in the past year? 1 or 2 drinks (0 point) Points 3 Interpretation Negative PROBLEMS Problem Type ICD Code Onset Dates Problem Status W/U Status Risk SNOMED Code Notes Problem Encounter for other preprocedural examination (Z01.818) Active confirmed 209218987 Problem Long-term use of aspirin therapy (Z79.82) Active confirmed 966034159 VITAL SIGNS BMI 27.45 kg/m2 09/30/2023 Blood pressure systolic 000 mm Hg 09/30/19 24 Blood pressure diastolic 00 mm Hg 024 Height 65 in 09/30/2023 Temperature 97.5 degrees Fahrenheit 09/30/19 24 Weight 165 lbs 09/30/2023 Encounters Encounter Location Date Provider Diagnosis [facility] [address] [place] [phone] 09/30/2023 Yoseph Maldonado Jr Colon cancer screening Z12.11 ; Encounter for other preprocedural examination Z01.818 and Long-term use of aspirin therapy Z79.82 ASSESSMENTS Encounter Date Diagnosis Assessment Notes Treatment Notes Treatment Clinical Notes 09/30/2023 Colon cancer screening (ICD-10 - Z12.11) Colonoscopy material was printed 09/30/2023 Encounter for other preprocedural examination (ICD-10 - Z01.818) 09/30/2023 Long-term use of aspirin therapy (ICD-10 - Z79.82) PLAN OF TREATMENT Medication Medication Name Sig Start Date Stop Date Notes MiraLax (colon prep) 8.3 oun ce ((238) grams mixed with Gatorade or Crystal Light orally begin at 5:00 p.m. the day before the procedure for 1 day 09/30/2023 Treatment Notes Assessment Notes Colon cancer screening Colonoscopy mater ial was printed Future Test Test Name Order Date COLONOSCOPY 09/30/2023 Next Appt Details Follow Up: 1 Year, Reason: Progress Notes * Examination Category Sub-Category Detail Notes General Examination GENERAL APPEARANCE: in no ac yan distress HEAD: normocephalic EYES: sclera non-icteric NECK/THYROID: no lymphadenopathy HEART: S1, S2 normal, no mu rmurs CHEST: normal shape and exp ansion LUNGS: clear to auscultatio n bilaterally ABDOMEN: soft, nontender, non distended, bowel sounds present, no organomegaly SKIN: anicteric EXTREMITIES: no clubbing, cyanosi s, or edema PSYCH: cognitive function i ntact ORAL CAVITY: mucosa moist
--- OUTSIDE RECORDS SUMMARY | 2024-08-04 11:46 | XMS_ITS ---
Demographics Address [address] [place] [address] Mobile Preferred Language en Marital Status unmarried Restoration Affiliation Unknown Race Ethnic Group or Author Organization Hakeem Nixon MD Address [address] [place] [phone] Care Team Providers Care Lapping Machine Operator Name Role Phone Hakeem Nixon Primary Care Provider [phone] REASON FOR VISIT REFILL TRAMADOL Medications Medication SIG (Take, Route, Fr equency, Duration) Notes Start Date End Date Status traMADol HCl 50 MG TAKE 1 TABLET BY DELFINA TH EVERY DAY NEEDED FOR 30 DAYS ORALLY ONCE A DAY Orally Once a day for 30 days 04/02/2024 Active Encounters Encounter Location Date Provider Diagnosis Hakeem Nixon MD [facility] [address] [place] [phone] 04/02/2024 Hakeem Nixon Plan Of Treatment Medication Medication Name Sig Start Date Stop Date Notes traMADol HCl 50 MG TAKE 1 TABLET BY DELFINA TH EVERY DAY NEEDED FOR 30 DAYS ORALLY ONCE A DAY Orally Once a day for 30 days 04/02/2024 Next Appt Details Provider Name:Hakeem clarke, 08/10/2024 01:45:00 PM, [facility], Suite [facility], [place], [place], [phone], Progress Notes * Rosas SINGHDOB:0 1955 (69 yo M)Acc No.[id number]:04/02/2024 Patient:?Kayli Singh :1955???Age:69 Y???Sex:Male Address:[address] [place] [address] * Refills? Refill traMADol HCl Tablet, 50 MG, Orally, 30 Tablet, TAKE 1 TABLET BY MOUTH EVERY DAY NEEDED FOR 30 DAYS ORALLY ONCE A DAY, Once a day, 30 days, Refills=2 * true * Date:? Generated for Kathy cleveland/Dameon/eTransmitting on:?08/04/2024 11:46 AM EST
--- OUTSIDE RECORDS SUMMARY | 2024-08-04 11:46 | XMS_ITS ---
Demographics Address [address] [place] [address] Mobile Preferred Language en Marital Status unmarried Mu-Ism Affiliation Unknown Race Ethnic Group or Author Organization Hakeem Nixon MD Address [address] [place] [phone] Care Team Providers Care Rotary Filter Operator Name Role Phone Hakeem Nixon Primary Care Provider REASON FOR VISIT RF Tramadol Medications Medication SIG (Take, Route, Fr equency, Duration) Notes Start Date End Date Status traMADol HCl 50 MG TAKE 1 TABLET BY DELFINA TH EVERY DAY NEEDED FOR 30 DAYS ORALLY ONCE A DAY Orally Once a day for 30 days 05/12/2024 Active Encounters Encounter Location Date Provider Diagnosis Hakeem Nixon MD [address] [facility] [address] [place] [phone] 05/12/2024 Hakeem Nixon Plan Of Treatment Medication Medication Name Sig Start Date Stop Date Notes traMADol HCl 50 MG TAKE 1 TABLET BY DELFINA TH EVERY DAY NEEDED FOR 30 DAYS ORALLY ONCE A DAY Orally Once a day for 30 days 05/12/2024 Next Appt Details Provider Name:aHkeem clarke, 08/10/2024 01:45:00 PM, [address] [facility], Suite [facility], [place], [place], [phone], Progress Notes * Rosas SINGHDOB:0 1955 (69 yo M)Acc No.[id number]:05/12/2024 Patient:?Kayli Singh :1955???Age:69 Y???Sex:Male Address:[address] [place] [address] * Refills? Refill traMADol HCl Tablet, 50 MG, Orally, 30 Tablet, TAKE 1 TABLET BY MOUTH EVERY DAY NEEDED FOR 30 DAYS ORALLY ONCE A DAY, Once a day, 30 days, Refills=2 * true * Date:? Generated for Kathy cleveland/Dameon/eTransmitting on:?08/04/2024 11:45 AM EST
--- OUTSIDE RECORDS SUMMARY | 2024-08-04 11:46 | XMS_ITS ---
Demographics Address [address] [place] [address] Preferred Language en Marital Status Unknown Yazdanism Affiliation Unknown Race Ethnic Group or Author Organization [facility] Address [address] [place] [phone] Support Name Relationship Address Phone ARELY ARLENE Emergency Contact [address] [place], [place] [phone] WILLIS SINGH Guarantor Unknown Care Team Providers Care Sap Analyst Name Role Phone Hakeem Nixon MD Primary Care Provider Yoseph Gonzales Jr [phone] REASON FOR VISIT pathology Encounters Encounter Location Date Provider Diagnosis [facility] [address] [place] [phone] 10/31/2023 Yoseph Maldonado Jr PLAN OF TREATMENT No Information
--- OUTSIDE RECORDS SUMMARY | 2024-08-04 11:47 | XMS_ITS | Clinical Summary ---
Demographics Address [address] [place] [address] Work Phone Preferred Language es Marital Status Unknown Mandaen Affiliation Unknown Race Other Race Ethnic Group or Author Organization [employer] [facility] Address [address] [facility] [address] [place] [address] Care Team Providers Care Cafe Server Name Role Phone Unavailable Primary Care Provider Unavailabl e Social History Tobacco Use Types Packs/Day Years Used Date Smoking Tobacco: Never Assessed Sex and Gender Information Value Date Recorded Sex Assigned at Male 05/07/2022 10:39 AM EDT Legal Sex Male 10:39 AM EDT Gender Identity Male 05/07/2022 10:39 AM EDT Sexual Orientation Straight 05/07/2022 10 :39 AM EDT Plan of Treatment Health Maintenance Due Date Last Done Comments CT Colonography 1955 Colonoscopy 1955 Colorectal Cancer Screening 1955 Depression Screening 1955 FIT DNA/Cologuard 1955 FIT 1955 FOBT 1955 Lipid Panel 1955 Sigmoidoscopy 1955 Alcohol/Substance Use Screening 1966 Tobacco Screening 1966 DTaP/Tdap/Td Vaccines (1 - Tdap) 1973 Zoster Vaccines (1 of 2) 2004 Pneumococcal Vaccine: 65+ Years (2 of 2 - PCV) 2019 05/23/2017 COVID-19 Vaccine ( season) 2024 04/08/2022, 06/06/2021, 12/27/2020, Additional history exists Influenza Vaccine (#1) 2024 , 06/20/2021, 04/11/2020, Additional history exists RSV Patients and Patients Aged 60 years or older (1 - 1-dose 75+ series) 2029 HIB Vaccines Aged Out No longer eligi ble based on patient's age to complete this topic HPV Vaccines Aged Out No longer eligi ble based on patient's age to complete this topic Hepatitis A Vaccines Aged Out No long er eligible based on patient's age to complete this topic Hepatitis B Vaccines Aged Out No long er eligible based on patient's age to complete this topic IPV Vaccines Aged Out No longer eligi ble based on patient's age to complete this topic Meningococcal Vaccine Aged Out No rogers salvador eligible based on patient's age to complete this topic RSV under 20 months Aged Out No longe r eligible based on patient's age to complete this topic Rotavirus Vaccines Aged Out No longer eligible based on patient's age to complete this topic
--- OUTSIDE RECORDS SUMMARY | 2024-08-04 11:47 | XMS_ITS | Patient Health Record ---
Demographics Address [address] [place] [address] Preferred Language en Marital Status Unknown Congregation Affiliation Unknown Race Ethnic Group or Author Organization [facility] Address [address] [place] [address] Support Name Relationship Address Phone ARLENE MCGEE Emergency Contact [address] [place] [address] WILLIS SINGH Guarantor Unknown [phone] Care Team Providers Care Technical Assistance Consultant Name Role Phone Hakeem Nixon MD Primary Care Provider Yoseph Gonzales Jr ALLERGIES No Known Allergies RESULTS Component Value Reference Range Notes Pathology Reviewed date:10/31/2023 09:29:19 AM Interpretation: Performing Lab:[facility], [address] [place] [phone] Notes/Report: REASON FOR REFERRAL No Information MEDICATIONS Medication SIG (Take, Route, Frequency, Duration) [...] HCl 50 MG Orally as needed Active IMMUNIZATIONS Vaccine Route Administration Date Status Comme nts Influenza Unknown 04/23/2023 Administered SOCIAL HISTORY Tobacco Use: Social History Observation [...] W/U Status Risk SNOMED Code Notes Problem Colon cancer screening (Z12.11) Active confirmed 103988477 Problem Encounter for other preprocedural examination (Z01.818) Active confirmed 741392358 Problem Long-term use of aspirin therapy (Z79.82) Active confirmed 584923426 VITAL SIGNS Temperature 97.5 degrees Fahrenheit 09/30/2023 Blood pressure diastolic 00 mm Hg 09/30/2023 Height 65 in 09/30/2023 Blood pressure systolic 000 mm Hg 09/30/2023 Weight 165 lbs 09/30/2023 BMI 27.45 kg/m2 09/30/2023 Encounters Encounter Location Date Provider Diagnosis [facility] Outpatient [address] [place] [phone] 10/16/2023 Yoseph Maldonado Jr Encounter for screening colonoscopy Z12.11 and Colon polyps K63.5 [facility] [address] [place] [phone] 09/30/2023 Yoseph Maldonado Jr Colon cancer screening Z12.11 ; Encounter for other preprocedural examination Z01.818 and Long-term use of aspirin therapy Z79.82 [facility] [address] [place] [phone] 10/31/2023 Yoseph Maldonado Jr ASSESSMENTS Encounter Date Diagnosis Assessment Notes Treatment Notes Treatment Clinical Notes 10/16/2023 Encounter for screening colonoscopy (ICD-10 - Z12.11) 10/16/2023 Colon polyps (ICD-10 - K63.5) 09/30/2023 Colon cancer screening (ICD-10 - Z12.11) Colonoscopy material was printed 09/30/2023 Encounter for other preprocedural examination (ICD-10 - Z01.818) 09/30/2023 Long-term use of aspirin therapy (ICD-10 - Z79.82) PLAN OF TREATMENT Future Test Test Name Order Date COLONOSCOPY 08/29/2017 COLONOSCOPY 09/30/2023 Insurance Providers Payer Name Payer Address Payer Phone Subscriber Number Group Number Insured Name Patient Relationship to Insured Coverage Start Date Coverage End Date [employer] RE [address] SACHI SARAH [id number] WILLIS SINGH Self - patient is the insured MEDICAL (GENERAL) HISTORY Medical History History ICD Code Hypertension Back pain/DJD Aortic stenosis status post aVR, non-rheumatic mitral stenosis, coronary disease Surgical History Surgery Date(Month/Year) Hernia repair Cardiac catheterization 07/25: Nonobstruc tive coronary disease
--- OUTSIDE RECORDS SUMMARY | 2024-08-04 11:47 | XMS_ITS ---
Demographics Address [address] [place] [address] Mobile Preferred Language en Marital Status unmarried Mormonism Affiliation Unknown Race Ethnic Group or Author Organization Hakeem Nixon MD Address [address] [place], [place] [phone] Care Team Providers Care Dressing Room Porter Name Role Phone Hakeem Nixon Primary Care Provider Results Component Value Reference Range Notes Complete Blood Count Auto Di ff (Not yet reviewed by provider) Interpretation: Performing Lab:[facility], [address] [place] [phone] Notes/Report: White Blood Count 8.3 4.8-10.8 X10*3/uL [...] NRBC Abs Auto 0.000 0.0-0.012 X10*3/uL [facility] [place]. Panel Fa st (Not yet reviewed by provider) Interpretation: Performing Lab:[facility], [address] [place] [phone] Notes/Report: Sodium 144 135-145 mmol/L Potassium 5.2 [...] Alkaline Phosphatase 137 39-117 U/L Lipid Panel (Not yet reviewe d by provider) Interpretation: Performing Lab:[facility], [address] [place] [phone] Notes/Report: Triglycerides 107 <150 mg/dL Desirable Triglyceride: [...] low results in patients with liver disease. Hemoglobin A1c (Not yet revi ewed by provider) Interpretation: Performing Lab:[address] [phone] Notes/Report: Hemoglobin A1c % 6.8 <6.0 % [...] average glucose, using the formula of the [id number] Average Glucose study (ADAG), Diabetes Care, Vol.31,#8, Feb. 2007 UA ClnCatch+Micro w/rflx Cul t (Not yet reviewed by provider) Interpretation: Performing Lab:[address] [phone] Notes/Report: Urine, Clean Catch Color Urine Yellow Appearance Urine Clear PH 6.5 5.0-9.0 Glucose Urine UA Negative Negative mg/dL Urine Blood Negative Negative Specific [place] - Urine 1.015 1.005-1.025 Urine Protein Negative [...] Date Provider Diagnosis Hakeem Nixon MD [address] [place], [place] [phone] 08/04/2024 Hakeem Nixon Blood tests for routine [...] insulin (ICD-10 - E11.9) Plan Of Treatment Pending Test Test Name Order Date Complete Blood Count Auto Diff Comprehensive [place]. Panel Fast Lipid Panel 08/04/2024 PSA,Total (Free>4and<10) 08/04/2024 Microalbumin, Random 08/04/2024 Hemoglobin A1c 08/04/2024 UA ClnCatch+Micro w/rflx Cult 08/04/2024 Next Appt Details Provider Name:Hakeem Blood ier, 08/10/2024 01:45:00 PM, [address], [address], [place], [place], [phone], Progress Notes * Her SAMANTHAalinetoDOB:0 1955 (69 yo M)Acc No.[id number]:08/04/2024 Progress Note Patient:?Her SAMANTHAsong ertanaid Provider:?Hakeem Nixon MD :1955???Age:69 Y???Sex:Male Renzo e:08/04/2024 Address:[address] [place], [phone] Subjective: * Chief Complaints: * ???1. FASTING LABS. * Medical History:? Objective: * Vitals:? Assessment: * Assessment: 1.?Blood tests for routine g eneral physical examination - Z00.00 (Primary)???2.?Essential hypertension - I10???3.?Type 2 diabetes mellitus without complication, without long-term current use of insulin - E11.9??? Plan: * Treatment: 2.?Essential hypertension?LAB: Complete Blood Count Auto Diff (Collection Date & Time - 08/04/2024 08:30 AM) ?LAB: [facility] [place]. Panel Fast (Collection Date & Time - 08/04/2024 08:30 AM) ?LAB: Lipid Panel (Collection Date & Time - 08/04/2024 08:30 AM) ?LAB: PSA,Total (Free>4and<10) ?LAB: Microalbumin, Random ?LAB: Hemoglobin A1c (Collection Date & Time - 08/04/2024 08:30 AM) ?LAB: UA ClnCatch+Micro w/rflx Cult (Collection Date & Time - 08/04/2024 08:30 AM) 3.?Type 2 diabetes mellitus without complication, without long-term current use of insulin?LAB: Complete Blood Count Auto Diff (Collection Date & Time - 08/04/2024 08:30 AM) ?LAB: [facility] [place]. Panel Fast (Collection Date & Time - 08/04/2024 08:30 AM) ?LAB: Lipid Panel (Collection Date & Time - 08/04/2024 08:30 AM) ?LAB: PSA,Total (Free>4and<10) ?LAB: Microalbumin, Random ?LAB: Hemoglobin A1c (Collection Date & Time - 08/04/2024 08:30 AM) ?LAB: UA ClnCatch+Micro w/rflx Cult (Collection Date & Time - 08/04/2024 08:30 AM) * * The named appointment provid er may or may not be the originator of this progress note, and it is not deemed complete until electronically signed by the appointment provider. Sign off status: Pending * Provider:?Hakeem Nixon MD Date:?0 08/04/2024 Generated for Kathy cleveland/Dameon/eTrachelsmitting on:?08/04/2024 11:47 AM EST
--- OUTSIDE RECORDS SUMMARY | 2024-08-04 11:47 | XMS_ITS ---
Demographics Address [address] [place] [address] Preferred Language en Marital Status Unknown Taoist Affiliation Unknown Race Ethnic Group or Author Organization [facility] Address [address] [place] [address] Support Name Relationship Address Phone ARLENE MCGEE Emergency Contact [address] [place] [address] ARELY WILLIS BARRY Guarantor Unknown Care Team Providers Care Toddler Guide Name Role Phone Tiffani JEFFERSON, Hakeem Primary Care Provider Jorge A Maldonado Jr, Yoseph Yañez REASON FOR VISIT screening MEDICATIONS Medication SIG (Take, Route, Frequency, Duration) [...] Active Encounters Encounter Location Date Provider Diagnosis [facility] [address] [place], [place] [phone] 10/16/2023 Yoseph Maldonado Jr Encounter for screening colonoscopy Z12.11 and Colon polyps K63.5 ASSESSMENTS Encounter Date Diagnosis Assessment Notes Treatment Notes Treatment Clinical Notes 10/16/2023 Encounter for screening colonoscopy (ICD-10 - Z12.11) 10/16/2023 Colon polyps (ICD-10 - K63.5) PLAN OF TREATMENT No Information
[2024-08-04 11:54] LABS: PSA,Total (Free>4and<10) 0.77 ng/mL (0.00-4.00)
[2024-08-04 12:02] LABS: Creatinine Urine 82.52 mg/dL; Microalbum/Creatinine Ratio Ur 33.9 ug/mg cr (<30)
== END 2024-08-04 10:39 | disposition home or self-care (01) ==
LOC: HO.LNP 10:38
PROVIDERS: Visit Provider Internal Medicine
DX: Z00.00 Encounter for general adult medical examination without abnormal findings (principal); I10 Essential (primary) hypertension; E11.9 Type 2 diabetes mellitus without complications; Z12.5 Encounter for screening for malignant neoplasm of prostate
CPT/HCPCS: 80053; 80061; 81001; 82043; 82570; 83036; 84153; 85025

== ENCOUNTER 2024-08-28 14:20 | Outpatient (AMB) | payer MEDICARE, SELFPAY ==
--- NOTE | 2024-08-28 14:31 | HO.NEPHOV_ITS ---
Vital Signs 08/28/24 14:35 Height 5 ft 5 in Weight 173 lb 8 oz BMI 28.9 BP 110/62 Blood Pressure Location Rt brachial Position Sitting Pulse 62 Pulse Source Pulse Oximeter Pulse Oximetry (%) 97 Oxygen Delivery Method Room Air Intake Visit Reasons: ENP: Elevated Bun/ Conf Reaming Machine Tender Required: No Accompanied by: Self / Same As Patient Allergies No Known Allergies Allergy (Verified 08/28/24 14:35) HPI Comments Details: I had the pleasure of seeing Rosas in consultation for CKD. He has H/O and had undergone bioprosthetic aortic valve replacement. He had undergone cardiac catheterization at that time and had atherosclerotic disease which did not need any CABG. He is not a diabetic but hypertensive. He has micro albuminuria. He is known to have arthritis but denies taking excessive NSAID's. He denies chest pain, edema, SOB, PND, orthopnea, hematuria or orthostatic symptoms. He is on ACEI. He does not have any epistaxis, photosensitivity, skin rashes, joint swelling, H/O CHF, carotid stenosis, PAD or known ALEXIA. Recently his serum creatinine had gone up to 1.56 [facility] Medical History (Updated 10/10/24 @ 20:26 by Gustabo Rodarte MD) Non-rheumatic mitral valve stenosis Aortic stenosis Back pain Essential hypertension Atherosclerotic cardiovascular disease Surgical History H/O colonoscopy Hx of hernia repair History of cardiac catheterization (~08/07/17) History of aortic valve replacement (~09/27/17) Family History Father No problems noted. Mother No problems noted. Social History Alcohol intake: current Alcohol intake frequency: a few times a week Patient Tobacco Use Status: Current everyday Tobacco user Tobacco use type: Cigarette Cigarettes Per Day: 4 Years Smoked: 60 Current occupational status: employed and disabled Current occupation: Rt handed/[employer] Review of Systems Const All systems reviewed & are unremarkable except as noted in HPI and below Physical Exam Vital Signs: Last Vital Signs Pulse 62 08/28/24 14:35 BP 110/62 08/28/24 14:35 Pulse Ox 97 08/28/24 14:35 Oxygen Delivery Method Room Air 08/28/24 14:35 BMI result Body Mass Index 28.9 Const General: comfortable and no acute distress Orientation/consciousness: patient oriented x3 HEENT Head: Yes normocephalic Mouth: Normal oral and palatal mucosa present Eyes EOM: EOMs intact bilaterally Neck Neck: Yes supple Resp Auscultation: clear to auscultation bilaterally Cardio Jugular venous distension: no JVD Rate: regular rate Heart sounds: Murmur heart sound present GI Palpation (GI): Soft to palpation Auscultation: normal bowel sounds General: Yes no CVA tenderness Back/Spine/Pelvis Back: no CVA tenderness Skin General skin exam: no rashes or lesions noted Neuro General: patient oriented x3 and moves all extremities Extrem General: Yes no pedal edema Results Reviewed Nephrology Results: Hgb 14.2 g/dl (14.0-18.0) 08/04/24 WBC 8.3 X10*3/uL (4.8-10.8) 08/04/24 Plt Count 254 X10*3/uL (160-400) 08/04/24 Sodium 144 mmol/L (135-145) 08/04/24 Potassium 4.5 mmol/L (3.3-5.1) 09/07/24 Chloride 113 mmol/L (96-108) H 08/04/24 Carbon Dioxide 30 mmol/L (22-29) H 08/04/24 BUN 17 mg/dL (9-16) H 09/07/24 Creatinine 1.34 mg/dL (0.5-1.4) 09/07/24 Calcium 9.1 mg/dL (8.4-10.2) 08/04/24 Urine Protein Negative mg/dL (Neg-Trace) 08/04/24 Urine Creatinine 82.52 mg/dL 08/04/24 Assessment & Plan Assessment & Plan (1) CKD stage 3a, GFR 45-59 ml/min: Code(s): N18.31 - Chronic kidney disease, stage 3a Category: Medical (2) Hypertension: Code(s): I10 - Essential (primary) hypertension Category: Medical Qualifiers: Hypertension type: primary hypertension Qualified Code(s): I10 - Essential (primary) hypertension Plan Rosas has CKD due to vascular disease. He has atherosclerotic CAD. I have ordered renal USS and Doppler of renal arteries as well as further CKD work up. He is tolerating ACEI. I shall consider initiating him on SGLT2 i after reviewing all the data. He maintains good hydration and avoids NSAID's. Further management is pending evolving data. Answered all questions. Orders: Orders US renal BI 1 Month N18.31 - Chronic kidney disease, stage 3a, I10 - Essential (primary) hypertension US renal doppler 1 Month N18.31 - Chronic kidney disease, stage 3a, I10 - Essential (primary) hypertension UA and rflx microscopic 6 Weeks N18.31 - Chronic kidney disease, stage 3a, I10 - Essential (primary) hypertension Creatinine 6 Weeks N18.31 - Chronic kidney disease, stage 3a, I10 - Essential (primary) hypertension Calcium 6 Weeks N18.31 - Chronic kidney disease, stage 3a, I10 - Essential (primary) hypertension Hemoglobin A1c 6 Weeks N18.31 - Chronic kidney disease, stage 3a, I10 - Essential (primary) hypertension Protein Creatinine Ratio, Ur 6 Weeks N18.31 - Chronic kidney disease, stage 3a, I10 - Essential (primary) hypertension Blood Urea Nitrogen 6 Weeks N18.31 - Chronic kidney disease, stage 3a, I10 - Essential (primary) hypertension Electrolytes 6 Weeks N18.31 - Chronic kidney disease, stage 3a, I10 - Essential (primary) hypertension Vitamin D 25-OH Total 6 Weeks N18.31 - Chronic kidney disease, stage 3a, I10 - Essential (primary) hypertension Parathyroid Hormone Intact 6 Weeks N18.31 - Chronic kidney disease, stage 3a, I10 - Essential (primary) hypertension Phosphorus 6 Weeks N18.31 - Chronic kidney disease, stage 3a, I10 - Essential (primary) hypertension Coding Level of Care Code New Pt Level 4 (84690) Diagnoses CKD stage 3a, GFR 45-59 ml/min N18.31 Primary hypertension I10 Hypertension type: primary hypertension
[2024-08-28 14:35] VITALS: BP 110/62; PULSE 62; O2SAT 97; BMI 28.9
--- OUTSIDE RECORDS SUMMARY | 2024-08-28 14:44 | XMS_ITS ---
Demographics Address [address] [place] [address] Preferred Language en Marital Status Unknown Worship Affiliation Unknown Race Ethnic Group or Author Organization [facility] Address [address] [place] [address] Support Name Relationship Address Phone ARLENE MCGEE Emergency Contact [address] [place] [address] WILLIS SINGH Guarantor Unknown Care Team Providers Care Reading Tutor Name Role Phone Tiffani JEFFERSON, Hakeem Primary [...] for other preprocedural examination (Z01.818) Active confirmed [id number] Problem Long-term use of aspirin therapy (Z79.82) Active confirmed [id number] VITAL SIGNS BMI 27.45 kg/m2 09/30/2023 Blood pressure systolic 000 mm Hg 09/30/19 24 Blood pressure diastolic 00 mm Hg 024 Height 65 in 09/30/2023 Temperature 97.5 degrees Fahrenheit 09/30/19 24 Weight 165 lbs 09/30/2023 Encounters Encounter Location Date Provider Diagnosis [facility] [address] [place] [phone] 09/30/2023 Yoseph Maldonado Jr Colon cancer screening [...]
--- OUTSIDE RECORDS SUMMARY | 2024-08-28 14:44 | XMS_ITS ---
Demographics Address [address] [place] [address] Preferred Language en Marital Status Unknown Sabianism Affiliation Unknown Race Ethnic Group or Author Organization [facility] Address [address] [place] [phone] Support Name Relationship Address Phone ARELY ARLENE Emergency Contact [address] [place], [place] [phone] WILLIS SINGH Guarantor Unknown [phone] Care Team Providers Care Police Lieutenant Patrol Name Role Phone Hakeem Nixon MD Primary Care Provider Yoseph Gonzales Jr REASON FOR VISIT pathology Encounters Encounter Location Date Provider Diagnosis [facility] [address] [place] [phone] 10/31/2023 Yoseph Maldonado Jr PLAN OF TREATMENT No Information
--- OUTSIDE RECORDS SUMMARY | 2024-08-28 14:44 | XMS_ITS ---
Demographics Address [address] [place] [address] Mobile Preferred Language en Marital Status unmarried Synagogue Affiliation Unknown Race Ethnic Group or Author Organization Hakeem Nixon MD Address [address] [place] [phone] Care Team Providers Care Staff Scientist Name Role Phone Hakeem Nixon Primary Care [...] Date Provider Diagnosis Hakeem Nixon MD [address] [facility] [address] [place] [phone] 05/12/2024 Hakeem Nixon Plan Of Treatment Medication Medication Name Sig Start Date Stop Date Notes traMADol HCl 50 MG TAKE 1 TABLET BY DELFINA TH EVERY DAY NEEDED FOR 30 DAYS ORALLY ONCE A DAY Orally Once a day for 30 days 05/12/2024 Next Appt Details Provider Name:Hakeem clarke, 09/07/2024 08:00:00 AM, [address] [place] [address], [address], [phone], Provider Name:Hakeem clarke, 02/05/2025 08:00:00 AM, [address] [place] [address], [address], [phone], Provider Name:Hakeem Bolod ier, 02/26/2025 10:00:00 AM, [address], [address], [place], [phone], Provider Name:Hakeem Blood ier, 08/05/2025 08:00:00 AM, [address], [address], [place], [phone], Provider Name:Hakeem Blood ier, 08/12/2025 11:00:00 AM, [address], [address], [place], [phone], Progress Notes * Her SAMANTHAisraelDOB:0 1955 (69 yo M)Acc No.[id number]:05/12/2024 Patient:?Kayli Kirkland luciano :1955???Age:69 Y???Sex:Male Address:[address] [place] [address] * Refills? Refill traMADol HCl Tablet, 50 MG, Orally, 30 Tablet, TAKE 1 TABLET BY MOUTH EVERY DAY NEEDED FOR 30 DAYS ORALLY ONCE A DAY, Once a day, 30 days, Refills=2 * true * Date:? Generated for Kathy cleveland/Dameon/Niraliitting on:?08/28/2024 02:44 PM EST
--- OUTSIDE RECORDS SUMMARY | 2024-08-28 14:45 | XMS_ITS ---
Demographics Address [address] [place] [address] Preferred Language en Marital Status Unknown Orthodox Affiliation Unknown Race Ethnic Group or Author Organization [facility] Address [address] [place] [address] Support Name Relationship Address Phone ARLENE MCGEE Emergency Contact [address] [place] [address] ARELY WILLIS BARRY Guarantor Unknown Care Team Providers Care Tool And Die Technician Name Role Phone Tiffani JEFFERSON, Hakeem Primary Care Provider Jorge A Maldonado Jr, Yoseph Yañez [phone] REASON FOR VISIT screening MEDICATIONS Medication SIG [...] Active Encounters Encounter Location Date Provider Diagnosis [facility] Outpatient [address] [place], [place] [phone] 10/16/2023 Yoseph Maldonado Jr Encounter for screening colonoscopy Z12.11 and Colon polyps K63.5 ASSESSMENTS Encounter Date Diagnosis Assessment Notes Treatment Notes Treatment Clinical Notes 10/16/2023 Encounter for screening colonoscopy (ICD-10 - Z12.11) 10/16/2023 Colon polyps (ICD-10 - K63.5) PLAN OF TREATMENT No Information
--- OUTSIDE RECORDS SUMMARY | 2024-08-28 14:45 | XMS_ITS | Patient Health Record ---
Demographics Address [address] [place] [address] Preferred Language en Marital Status Unknown Latter-Day Affiliation Unknown Race Ethnic Group or Author Organization [facility] Address [address] [place] [address] Support Name Relationship Address Phone ARLENE MCGEE Emergency Contact [address] [place] [address] ARELY BARRY WILLIS Guarantor Unknown Care Team Providers Care Pigment And Lacquer Mixer Name Role Phone Hakeem Nixon MD Primary Care Provider Yoseph Gonzales Jr ALLERGIES No Known Allergies RESULTS Component Value Reference Range Notes Pathology Reviewed date:10/31/2023 09:29:19 AM Interpretation: Performing Lab:[facility], [address] [place] [phone] Notes/Report: REASON FOR REFERRAL No Information MEDICATIONS [...] Problem Colon cancer screening (Z12.11) Active confirmed [id number] Problem Encounter for other preprocedural examination (Z01.818) Active confirmed 220987281 Problem Long-term use of aspirin therapy (Z79.82) Active confirmed 861023327 VITAL SIGNS Temperature 97.5 degrees Fahrenheit 09/30/2023 Blood pressure diastolic 00 mm Hg 09/30/2023 Height 65 in 09/30/2023 Blood pressure systolic 000 mm Hg 09/30/2023 Weight 165 lbs 09/30/2023 BMI 27.45 kg/m2 09/30/2023 Encounters Encounter Location Date Provider Diagnosis [facility] Outpatient [address] [place] [phone] 10/16/2023 Yoseph Maldonado Jr Encounter for screening colonoscopy Z12.11 and Colon polyps K63.5 [facility] [address] [place] [phone] 09/30/2023 Yoseph Maldonado Jr Colon cancer screening Z12.11 ; Encounter for other preprocedural examination Z01.818 and Long-term use of aspirin therapy Z79.82 [facility] [address] [place] [phone] 10/31/2023 Yoseph Maldonado Jr ASSESSMENTS Encounter Date [...] End Date [employer] [address] SACHI SARAH [phone] [id number] WILLIS SINGH Self - patient is the insured MEDICAL (GENERAL) HISTORY Medical History History ICD Code Hypertension Back pain/DJD Aortic stenosis status post aVR, non-rheumatic mitral stenosis, coronary disease Surgical History Surgery Date(Month/Year) Hernia repair Cardiac catheterization 07/25: Nonobstruc tive coronary disease
--- OUTSIDE RECORDS SUMMARY | 2024-08-28 14:45 | XMS_ITS | Clinical Summary ---
Demographics Address [address] [place] [address] Work Phone Preferred Language es Marital Status Unknown Mormon Affiliation Unknown Race Other Race Ethnic Group or Author Organization [facility] Address [address] [place] [address] Care Team Providers Care Textile Converter Name Role Phone Unavailable Primary Care Provider [...] Vaccines (1 of 2) 2004 Pneumococcal Vaccine: 50+ Years (2 of 2 - PCV) 05/23/2018 05/23/2017 COVID-19 Vaccine ( season) 2024 04/08/2022, [...]
--- OUTSIDE RECORDS SUMMARY | 2024-08-28 14:45 | XMS_ITS ---
Demographics Address [address] [place] [address] Mobile Preferred Language en Marital Status unmarried Yarsani Affiliation Unknown Race Ethnic Group or Author Organization Hakeem Nixon MD Address [address] [place], [place] [phone] Care Team Providers Care Ripsaw Grader Name Role Phone Hakeem Nixon Primary Care Provider [phone] Results Component Value Reference Range Notes Complete Blood Count Auto Di ff Reviewed date:08/04/2024 01:13:03 PM Interpretation: Performing Lab:[facility], [address] [place] [phone] Notes/Report: White Blood Count 8.3 4.8-10.8 X10*3/uL [...] NRBC Abs Auto 0.000 0.0-0.012 X10*3/uL Comprehensive Goodwin. Panel Fa Reviewed date:08/10/2024 02:18:47 PM Interpretation:08-10-24 Performing Lab:[address] [phone] Notes/Report: Sodium 144 135-145 mmol/L Potassium 5.2 [...] Panel Reviewed date:08/04/2024 12:24:02 PM Interpretation: Performing Lab:[address] [phone] Notes/Report: Triglycerides 107 <150 mg/dL Desirable Triglyceride: [...] (Free>4and<10) Reviewed date:08/04/2024 12:40:01 PM Interpretation: Performing Lab:[address] [phone] Notes/Report: PSA,Total (Free>4and<10) 0.77 0.00-4.00 ng/mL A [...] Random Reviewed date:08/04/2024 01:00:09 PM Interpretation: Performing Lab:[facility], [address] [place] [phone] Notes/Report: Creatinine Urine 82.52 Microalbumin Urine 28.0 Microalbum/Creatinine Ratio Ur 33.9 <30 ug/mg cr Albumin/Creatinine Ratio Reference Ranges: Normal: < 30 ug/mg creatinine Microalbuminuria: 30 - 300 ug/mg creatinine Clinical Albuminuria: > 300 ug/mg creatinine Hemoglobin A1c Reviewed date:08/04/2024 12:30:48 PM Interpretation: Performing Lab:[facility], [address] [place] [phone] Notes/Report: Hemoglobin A1c % 6.8 <6.0 % [...] average glucose, using the formula of the [id number] Average Glucose study (ADAG), Diabetes Care, Vol.31,#8, Feb. 2007 UA ClnCatch+Micro w/rflx Cul t Reviewed date:08/04/2024 01:26:51 PM Interpretation: Performing Lab:[facility], [address] [place] [phone] Notes/Report: Urine, Clean Catch Color Urine Yellow Appearance Urine Clear PH 6.5 5.0-9.0 Glucose Urine UA Negative Negative mg/dL Urine Blood Negative Negative Specific [place] - Urine 1.015 1.005-1.025 Urine Protein Negative [...] Location Date Provider Diagnosis Hakeem Nixon MD [address] [place] [address] Drive [address] [place], [place] [phone] 08/04/2024 Hakeem Nixon Blood tests for routine [...] Of Treatment Next Appt Details Provider Name:Hakeem vallesr, 09/07/2024 08:00:00 AM, [address], [address], [place], [phone], Provider Name:Hakeem Blood ier, 02/05/2025 08:00:00 AM, [address], [address], [place], [place], [phone], Provider Name:Hakeem Blood ier, 02/26/2025 10:00:00 AM, [address], [address], [place], [place], [phone], Provider Name:Hakeem vallesr, 08/05/2025 08:00:00 AM, [address], [address], [place], [phone], Provider Name:Hakeem vallesr, 08/12/2025 11:00:00 AM, [address], [place], [phone], Progress Notes * Rosas SINGHDOB:0 1955 (69 yo M)Acc No.[id number]:08/04/2024 Progress Note Patient:Kayli CASTELLON Provider:?Hakeem Nixon MD :1955???Age:69 Y???Sex:Male Renzo e:08/04/2024 Address:[address] [facility] Subjective: * Chief Complaints: * ???1. FASTING [...] Time - 08/04/2024 08:30 AM) ?LAB: Comprehensive [place]win. Panel Fast (Collection Date & Time - 08/04/2024 08:30 AM) ?LAB: Lipid Panel (Collection Date & Time - 08/04/2024 08:30 AM) ?LAB: PSA,Total (Free>4and<10) (Collection Date & Time - 08/04/2024 08:30 AM) ?LAB: Microalbumin, Random (Collection Date & Time - 08/04/2024 08:30 AM) ?LAB: Hemoglobin A1c (Collection Date & Time 08/04/2024 08:30 AM) ?LAB: UA ClnCatch+Micro w/rflx Cult (Collection Date & Time - 08/04/2024 08:30 AM) 3.?Type 2 diabetes mellitus without complication, without long-term current use of insulin?LAB: Complete Blood Count Auto Diff (Collection Date & Time - 08/04/2024 08:30 AM) ?LAB: Comprehensive Goodwin. Panel Fast (Collection Date & Time 08/04/2024 08:30 AM) ?LAB: Lipid Panel (Collection & Time 08/04/2024 08:30 AM) ?LAB: PSA,Total (Free>4and<10) (Collection Date & Time 08/04/2024 08:30 AM) ?LAB: Microalbumin, Random (Collection Date & Time 08/04/2024 08:30 AM) ?LAB: Hemoglobin A1c (Collection Date & Time - 08/04/2024 08:30 AM) ?LAB: UA ClnCatch+Micro w/rflx Cult (Collection Date & Time - 08/04/2024 08:30 AM) * Procedure Codes:?90857 VENIP UNCT, ROUTINE* * * The named appointment provid er may or may not be the originator of this progress note, and it is not deemed complete until electronically signed by the appointment provider. Sign off status: Pending * Provider:?Hakeem Nixon MD Date:?0 08/04/2024 Generated for Kathy cleveland/Dameon/Phu on:?08/28/2024 02:45 PM EST
--- OUTSIDE RECORDS SUMMARY | 2024-08-28 14:46 | XMS_ITS ---
Demographics Address [address] [place] [address] Mobile Preferred Language en Marital Status unmarried Anglican Affiliation Unknown Race Ethnic Group or Author Organization Hakeem Nixon MD Address [address] [place], [place] [phone] Care Team Providers Care Director Of Operations Home Health Name Role Phone Hakeem Nixon Primary Care [...] 11:14:21 AM >appt set up and patient informed Referral Priority Routine Referral Appointment Date 08/28/2024 [...] Location Date Provider Diagnosis Hakeem Nixon MD [address] [place] [address] [place] [phone] 08/10/2024 Hakeem Nixon Type 2 diabetes mellitus [...] R79.9) referral to nephrology/ REFERRAL FAXED TO [facility] FOR SCHEDULING 08/10/2024 Essential hypertension (ICD-10 [...] referral to nephrolo gy/ REFERRAL FAXED TO [facility] FOR SCHEDULING Essential hypertension stable, will cont inue current regiment Colon cancer screening guaiac negative Depression screening negative screen CAD (coronary artery disease) stable, co ntinue current regiment Future Test Test Name Order Date Potassium 09/07/2024 Blood Urea Nitrogen 09/07/2024 Creatinine 09/07/2024 Referrals Referral Date Details 08/10/2024 08/10/2024, ELEVATED BUN, Ajit Delgado Next Appt Details Provider Name:Hakeem clarke, 09/07/2024 08:00:00 AM, [address], [address], [place], [phone], Provider Name:Hakeem vallesr, 02/05/2025 08:00:00 AM, [address], [address], [place], [phone], Provider Name:Hakeem vallesr, 02/26/2025 10:00:00 AM, [address], [address], [place], [phone], Provider Name:Hakeem vallesr, 08/05/2025 08:00:00 AM, [address], [address], [place], [phone], Provider Name:Hakeem clarke, 08/12/2025 11:00:00 AM, [address], [address], [place], [phone], Progress Notes * Rosas SINGHDOB:0 1955 (69 yo M)Acc No.[id number]:08/10/2024 Progress Notes Patient:?ARELY BARRYHersong wolf Provider:?Hakeem Nixon MD :1955???Age:69 Y???Sex:Male Renzo e:08/10/2024 Address:[address] [facility] Subjective: * Chief Complaints: * ???ANNUAL EXAM/ must see com p meta * HPI: ???Depression Screening:?PHQ-9?Little interest or pleasure in doing things?Not at all,?Feeling down, depressed, or hopeless?Not at all,?Trouble falling or staying asleep, or sleeping too much?Not at all,?Feeling tired or having little energy?Not at all,?Poor appetite or overeating?Not at all,?Feeling bad about yourself or that you are a failure, or have let yourself or your family down?Not at all,?Trouble concentrating on things, such as reading the newspaper or watching television?Not at all,?Moving or speaking so slowly that other people could have noticed; or the opposite, being so fidgety or restless that you have been moving around a lot more than usual?Not at all,?Thoughts that you would be better off or of hurting yourself in some way?Not at all,?Total Score?0.?Interpretation and Intervention?Depression Screening Findings?Negative,?Follow-Up for Depression?: review of PHQ-9 found negative result, no follow-up needed.?Communication Needs:?Communication Needs?Does the patient have a hearing impairment?No,?Does the patient have a vision impairment??Yes,?If yes, what is the vision impairment??Glasses,?Does the patient have a cognition impairment??No.?Fall Risk:?History?Have you had any falls with injury in the past year??No,?Have you had two or more falls in the past year??No.?SDOH Questions:?SDOH Questions?In the past year have you been worried about losing housing??No,?In the past year have you or any family members you live with been unable to get any of the following when it was really needed? Check all that apply:?None.?Symptom(s):? patient is a 69 yo male here for annual visit with review of recent labs and follow up of chronic issues.. ankle bothers? on left after an injury 8 years. * ROS:?General/Constitutional:?Patient denies?fatigue, headache.?Change in appetite?denies.?Chills?denies.?Fever?denies.?Ophthalmologic:?Blurred vision?denies.?Discharge?denies.?Pain?denies.?ENT:?Patient denies?decreased sense of smell, any loss of taste, sore throat.?Decreased hearing?denies.?Sore throat?denies.?Swollen glands?denies.?Endocrine:?Cold intolerance?denies.?Excessive thirst?denies.?Heat intolerance?denies.?Weight loss?denies.?Respiratory:?Cough?denies.?Shortness of breath at rest?denies.?Shortness of breath with exertion?denies.?Wheezing?denies.?Cardiovascular:?Chest pain at rest?denies.?Chest pain with exertion?denies.?Irregular heartbeat?denies.?Shortness of breath?denies.?Gastrointestinal:?Abdominal pain?denies.?Change in bowel habits?denies.?Diarrhea?denies.?Nausea?denies.?Rectal bleeding?denies.?Vomiting?denies .?Genitourinary:?Blood in urine?denies.?Difficulty urinating?denies.?Frequent urination?denies.?Musculoskeletal:?Patient denies?muscle aches.?Painful joints?denies.?Weakness?denies.?Peripheral Vascular:?Patient denies?red and blue toes.?Skin:?Dry skin?denies.?Itching?denies.?Denies?Mole(s),? changes in moles, new moles or any lesions of concern.?Denies?Photosensitivity.?Rash?denies.?Neurologic:?Dizziness?denies.?Fainting?denies.?Headache?denies.? * Medical History:? * Surgical History:? * Hospitalization/Major Diagno stic Procedure:? * Family History:?Father: dece ased 87 yrs.?Mother: alive 90 yrs.?4 brother(s) , 4 sister(s) . 1 son(s) , 1 daughter(s) . .? Denies mental health/substance abuse family history, No pertinent family medical history, No pertinent family medical history. * Social History:?Tobacco Use:?Tobacco Control (Standard)?Tobacco use:?Current every day smoker,?Additional Findings: Tobacco user?Light cigarette smoker (1-9 cigs/day).?Miscellaneous:?Caffeine: yes, frequency:, 2-3 cups per day. Children: yes. Exercise: no. Home smoke detector use: yes. Housing: renting. Marital status: single. Occupation: weeks/months/years, unemployed. Travel outside of the [place]: no. ???Drug/Alcohol:?AUDIT-C (Standard)?Did you have a drink containing alcohol in the past year??Yes,?How often did you have a drink containing alcohol in the past year??2 to 3 times a week (3 points),?How many drinks did you have on a typical day when you were drinking in the past year??3 or 4 drinks (1 point),?How often did you have six or more drinks on one occasion in the past year??Never (0 point),?Points?4,?Interpretation?Positive.? * Medications:?TakingMetoprolo l Tartrate 50 MG Tablet TAKE 1 TABLET [...] ONCE A DAY Orally Once a day Not-Taking/PRNPantoprazole Sodium 40 MG Tablet Delayed Release 1 tablet Orally Once a day oxyCODONE HCl 5 MG Tablet 1 tablet as needed Orally every 6 hrs Not- Taking/PRN Pantoprazole Sodium 40 MG Tablet Delayed Release [...] reviewed and reconciled with the patient * Allergies:?N.K.D.A.yes[Aller gies Verified] Objective: * Vitals:?Ht: 65, Wt: 175, BMI :29.12, BP:112/60, Wt-k.38. weight is up 12 pounds since 07-05-23. * ???Past Orders: ???Lab:Microalbumin, Random (Order 08/04/2024) (Collection Date & Time - 08/04/2024 08:30 AM) ? Value Reference Range ?Creatinine Urine 82.52 - m g/dL ?Microalbumin Urine 28.0 - mg/L ?Microalbum Creatinine Ratio Ur 33.9 H <30 - ug/mg cr ???Lab:Hemoglobin A1c (Order 08/04/2024) (Collection Date & Time - 08/04/2024 08:30 AM) ? Value Reference Range ?Hemoglobin A1c % 6.8 H <6. 0 - % ?Estimated Average Glucose 148 - mg/dL ???Lab:Lipid Panel (Order Da 08/04/2024) (Collection Date & Time - 08/04/2024 08:30 AM) ? Value Reference Range ?Triglycerides 107 <150 - mg/dL ?Cholesterol 127 <200 - m g/dL ?LDL Cholesterol Calculated 68 <100 - mg/dL ?HDL Cholesterol 38 L >40 - mg/dL ???Lab:PSA,Total (Free>4and< 10) (Order Date - 08/04/2024) (Collection Date & Time - 08/04/2024 08:30 AM) ? Value Reference Range ?PSA,Total (Free>4and<10) 0.77 0.00-4.00 - ng/mL ???Lab:Complete Blood Count Auto Diff (Order Date - 08/04/2024) (Collection Date & Time - 08/04/2024 08:30 AM) ? Value Reference Range ?White Blood Count 8.3 4. 8-10.8 - X10*3/uL ?Red Blood Count 4.92 4.60 -5.80 - X10*6/uL ?Hemoglobin 14.2 14.0-18.0 - g/dl ?Hematocrit 44.8 42.0-52.0 - % ?Mean Corpuscular Volume 91.1 80.0-98.0 - fL ?Mean Corpuscular Hemoglobin 28.9 27.0-33.0 - pg ?Mean Corpuscular HGB Conc 31.7 31.0-36.0 - g/dl ?Red Cell Distribution Width 15.5 11.0-16.0 - % ?Platelet Count 254 160-4 00 - X10*3/uL ?Mean Platelet Volume 9.9 9.4-12.4 - fL ?Neutrophils Percent Auto 58.2 45-73 - % ?Imm Gran Pct Auto 0.2 0. 0-0.4 - % ?Lymphocytes Percent Auto 27.0 20-40 - % ?Monocytes Percent Auto 10.5 2-11 - % ?Eosinophils Percent Auto 3.4 0-4 - % ?Basophils Percent Auto 0.7 0-2 - % ?NRBC Pct Auto 0.0 0.0-0. 2 - /100WBC ?Neutrophils Absolute Auto 4.8 2.0-8.3 - x10*3/uL ?Imm Gran Abs Auto 0.02 0. 00-0.03 - X10*3/uL ?Lymphocytes Absolute Auto 2.2 1.2-4.9 - X10*3/uL ?Monocytes Absolute Auto 0.9 0.1-1.2 - X10*3/uL ?Eosinophils Absolute Auto 0.3 0.0-0.4 - X10*3/uL ?Basophils Absolute Auto 0.1 0.0-0.2 - X10*3/uL ?NRBC Abs Auto 0.000 0.0-0. 012 - X10*3/uL ???Lab:UA ClnCatch+Micro w/r flx Cult (Order Date - 08/04/2024) (Collection Date & Time - 08/04/2024 08:30 AM) ? Value Reference Range ?Color Urine Yellow - ?Appearance Urine Clear - ?PH 6.5 5.0-9.0 - ?Glucose Urine UA Negative Neg ative - mg/dL ?Urine Blood Negative Negative - ?Specific [place] - Urine 1.015 1.005-1.025 - ?Urine Protein Negative Neg-Tr mk - mg/dL ?Urine Ketones Negative Negati ve - mg/dL ?Nitrite Urine Negative Negati ve - ?Leukocyte Esterase Urine Negative Negative - ?RBC Urine 0-2 0-2 - /HPF ?WBC Urine 0-5 0-5 - /HPF ?Squamous Epithelial Cell Urine 0-2 0-2 - /HPF ?Bacteria Urine None Seen None Seen - ?Hyaline Casts Urine 0-2 0-2 - /LPF * Examination: ???General Examination: ?GENERAL APPEARANCE:?well developed, well nourished, in no acute distress.?HEAD:?normocephalic, atraumatic.?EYES:?pupils equal, round, reactive to light and accommodation, sclera non-icteric.?EARS:?normal.?ORAL CAVITY:?mucosa moist.?THROAT:?clear.?NECK/THYROID:?neck supple, full range of motion, no cervical lymphadenopathy, no bruits.?SKIN:?warm and dry, no suspicious lesions.?HEART:?regular rate and rhythm, S1, S2 normal, no murmurs.?LUNGS:?clear to auscultation bilaterally.?ABDOMEN:?soft, nontender, nondistended, bowel sounds present, normal, no organomegaly , no masses palpable.?RECTAL EXAM:?normal tone, no external hemorrhoids, no masses palpable, prostate normal, stool guaiac negative.?MALE GENITOURINARY:?not examined.?EXTREMITIES:?no clubbing, cyanosis, or edema.?NEUROLOGIC:?nonfocal, motor strength normal upper and lower extremities, sensory exam intact.?PODIATRIC:?normal pinprick, normal pulses, normal light touch.?FOOT EXAM:?.? Assessment: * Assessment: 1.?Type 2 diabetes mellitus without complication, without long-term current use of insulin - E11.9 (Primary)???2.?Erectile dysfunction - N52.9???3.?Acute right- sided low back pain with right-sided sciatica - M54.41???4.?Elevated BUN - R79.9???5.?Essential hypertension - I10???6.?Colon cancer screening - Z12.11???7.?Depression screening - Z13.31???8.?CAD (coronary artery disease) - I25.10??? Plan: * Treatment: 2.?Erectile dysfunction? Start Sildenafil Citrate Tablet, 100 MG, 1 tablet as needed, Orally, Once a day, 30 day(s), 30;?Continue Sildenafil Citrate Tablet, 100 MG, 1 tablet as needed, Orally, Once a day.?? Notes: stable, will continue current regiment?? 3.?Acute right-sided low magalys k pain with right-sided sciatica? Start traMADol HCl Tablet, 50 MG, 1 tablet as needed, Orally, Once a day, 30 days, 30 Tablet, Refills 2.?? 4.?Elevated BUN? Notes: referral to nephrology/ REFERRAL FAXED TO [facility] FOR SCHEDULING? Referral To:Ajit Delgado??Nephrology ?Reason:ELEVATED BUN 5.?Essential hypertension? Continue Metoprolol Tartrate Tablet, 50 MG, TAKE 1 TABLET BY MOUTH TWICE A DAY WITH FOOD;?Continue Lisinopril Tablet, 40 MG, TAKE 1 TABLET BY MOUTH EVERY DAY.?? Notes: stable, will continue current regiment?? 6.?Colon cancer screening? Notes: guaiac negative?? 7.?Depression screening? Notes: negative screen?? 8.?CAD (coronary artery dise ase)? Continue Atorvastatin Calcium Tablet, 40 MG, TAKE 1 TABLET BY MOUTH EVERY DAY, Orally, Once a day.?? Notes: stable, continue current regiment?? * Procedure Codes:? * * Sign off status: Completed true * Provider:?Hakeem Nixon MD Date:?0 08/10/2024 Generated for Kathy cleveland/Dameon/Niraliitting on:?08/28/2024 02:45 PM EST History and Physical Notes * [...] patient have a vision impairmen t?: Yes ?If yes, what is the vision impairment?: Glasses [...]
== END 2024-08-28 15:07 | disposition home or self-care (01) ==
PROVIDERS: PCP Internal Medicine; Referring Provider Internal Medicine; Visit Provider Internal Medicine Nephrology
DX: N18.31 Chronic kidney disease, stage 3a (principal); I10 Essential (primary) hypertension
CPT/HCPCS: 99204

== ENCOUNTER → 2024-08-28 14:20 | Outpatient (BNVA) | payer MEDICARE, SELFPAY | PROVIDERS: PCP Internal Medicine; Referring Provider Internal Medicine; Visit Provider Internal Medicine Nephrology | DX: I12.9 Hypertensive chronic kidney disease with stage 1 through stage 4 chronic kidney disease, or unspecified chronic kidney disease (principal); N18.31 Chronic kidney disease, stage 3a | CPT/HCPCS: 99202 ==

== ENCOUNTER 2024-09-07 10:31 | Outpatient (REF) | payer MEDICARE, SELFPAY ==
[2024-09-07 10:56] LABS: Blood Urea Nitrogen 17 mg/dL (9-16); Estimated Glomerular Filt Rate 53; Potassium 4.5 mmol/L (3.3-5.1)
--- OUTSIDE RECORDS SUMMARY | 2024-09-07 12:14 | XMS_ITS ---
Demographics Address [address] [place] [address] Mobile Preferred Language en Marital Status unmarried Worship Affiliation Unknown Race Ethnic Group or Author Organization Hakeem Nixon MD Address [address] [place], [place] [phone] Care Team Providers Care Plant Taxonomist Name Role Phone Hakeem Nixon Primary Care Provider Results Component Value Reference Range Notes Blood Urea Nitrogen (Not yet reviewed by provider) Interpretation: Performing Lab:[facility], [place], [address] [place] [phone] Notes/Report: Blood Urea Nitrogen 17 9-16 mg/dL Creatinine (Not yet reviewed by provider) Interpretation: Performing Lab:[facility], [place], [address] [place] [phone] Notes/Report: Creatinine 1.34 0.5-1.4 mg/dL Estimated Glomerular Filt Rate 53 Chronic Kidney Disease: Estimated GFR < 60 mL/min/1.73m2 Severe Kidney Disease: Estimated GFR < 15 mL/min/1.73m2 Potassium Reviewed date:09/07/2024 11:04:39 AM Interpretation: Performing Lab:[facility], [place], [address] [place] [phone] Notes/Report: Potassium 4.5 3.3-5.1 mmol/L REASON FOR VISIT BUN, CREATININE, POTASSIUM Encounters Encounter Location Date Provider Diagnosis Hakeem Nixon MD [address] [place] [phone] 09/07/2024 Hakeem Nixon Essential hypertension I10 and [...] Treatment Pending Test Test Name Order Date Blood Urea Nitrogen 09/07/2024 Creatinine 09/07/2024 Next Appt Details Provider Name:Hakeem vallesr, 02/05/2025 08:00:00 AM, [address] [place] [address], Suite [facility], [place], [place], [phone], Provider Name:Hakeem clarke, 02/26/2025 10:00:00 AM, [address] [place] [address], Suite [facility], [place], [place], [phone], Provider Name:Hakeem clarke, 08/05/2025 08:00:00 AM, [address] [place] [address], Suite [facility], [place], [place], [phone], Provider Name:Hakeem vallesr, 08/12/2025 11:00:00 AM, [address] [place] [address], Suite [facility], [place], [place], [phone], Progress Notes * Her SAMANTHAisraelDOB:0 1955 (69 yo M)Acc No.[id number]:09/07/2024 Progress Note Patient:?Kayli SINGH ertanaid Provider:?Hakeem Nixon MD :1955???Age:69 Y???Sex:Male Renzo e:09/07/2024 Address:[address] [place], [id number] Subjective: * Chief Complaints: * ???1. BUN, CREATININE, POTAS SIUM. * Medical History:? Objective: * Vitals:? Assessment: * Assessment: 1.?Essential hypertension - I10 (Primary)???2.?Type 2 diabetes mellitus without complication, without long-term current use of insulin - E11.9??? Plan: * Treatment: * * The named appointment provid er may or may not be the originator of this progress note, and it is not deemed complete until electronically signed by the appointment provider. Sign off status: Pending * Provider:?Hakeem Nixon MD Date:?0 09/07/2024 Generated for Kathy cleveland/Dameon/Niraliitting on:?09/07/2024 12:14 PM EST
--- OUTSIDE RECORDS SUMMARY | 2024-09-07 12:14 | XMS_ITS ---
Demographics Address [address] [place] [address] Preferred Language en Marital Status Unknown Pentecostalism Affiliation Unknown Race Ethnic Group or Author Organization [facility] Address [address] [place] [address] Support Name Relationship Address Phone ARLENE MCGEE Emergency Contact [address] [place] [address] WILLIS SINGH Guarantor Unknown Care Team Providers Care Record Label Internship Name Role Phone Tiffani JEFFERSON, Hakeem Primary [...] for other preprocedural examination (Z01.818) Active confirmed [id number] Problem Long-term use of aspirin therapy (Z79.82) Active confirmed [id number] VITAL SIGNS Temperature 97.5 degrees Fahrenheit 09/30/19 24 Blood pressure systolic 000 mm Hg 09/30/19 24 Blood pressure diastolic 00 mm Hg 024 Height 65 in 09/30/2023 Weight 165 lbs 09/30/2023 BMI 27.45 kg/m2 09/30/2023 Encounters Encounter Location Date Provider Diagnosis [facility] [address] [place] [phone] 09/30/2023 Yoseph Maldonado Jr Colon cancer screening [...]
--- OUTSIDE RECORDS SUMMARY | 2024-09-07 12:14 | XMS_ITS | Clinical Summary ---
Demographics Address [address] [place] [address] Work Phone Preferred Language es Marital Status Unknown Scientologist Affiliation Unknown Race Other Race Ethnic Group or Author Organization [employer] [facility] Address [address] [facility] [address] [place] [address] Care Team Providers Care Director Hris Name Role Phone Unavailable Primary Care Provider [...]
--- OUTSIDE RECORDS SUMMARY | 2024-09-07 12:14 | XMS_ITS | Patient Health Record ---
Demographics Address [address] [place] [address] Preferred Language en Marital Status Unknown Denominational Affiliation Unknown Race Ethnic Group or Author Organization [facility] Address [address] [place] [address] Support Name Relationship Address Phone ARLENE MCGEE Emergency Contact 07/09 [place] [address] ARELY BARRY WILLIS Guarantor Unknown [phone] Care Team Providers Care Manager Risk Name Role Phone Hakeem Nixon MD Primary Care Provider Yoseph Gonzales Jr [phone] ALLERGIES No Known Allergies RESULTS Component Value Reference Range Notes Pathology Reviewed date:10/31/2023 09:29:19 AM Interpretation: Performing Lab:[facility], [address] [place] [phone] Notes/Report: REASON FOR REFERRAL No Information MEDICATIONS [...] Problem Colon cancer screening (Z12.11) Active confirmed 666015241 Problem Encounter for other preprocedural examination (Z01.818) Active confirmed 606979809 Problem Long-term use of aspirin therapy (Z79.82) Active confirmed [id number] VITAL SIGNS Temperature 97.5 degrees Fahrenheit 09/30/2023 Blood pressure diastolic 00 mm Hg 09/30/2023 Height 65 in 09/30/2023 Blood pressure systolic 000 mm Hg 09/30/2023 Weight 165 lbs 09/30/2023 BMI 27.45 kg/m2 09/30/2023 Encounters Encounter Location Date Provider Diagnosis [facility] [address] [place] [phone] 10/16/2023 Yoseph Maldonado Jr Encounter for screening colonoscopy Z12.11 and Colon polyps K63.5 [facility] [address] [place] [phone] 09/30/2023 Yoseph Maldonado Jr Colon cancer screening Z12.11 ; Encounter for other preprocedural examination Z01.818 and Long-term use of aspirin therapy Z79.82 [facility] [address] [place] [phone] 10/31/2023 Yoseph Maldonado Jr ASSESSMENTS Encounter Date [...] End Date [employer] [address] SACHI SARAH [id number] WILLIS SINGH Self - patient is the insured MEDICAL (GENERAL) HISTORY Medical History History ICD Code Hypertension Back pain/DJD Aortic stenosis status post aVR, non-rheumatic mitral stenosis, coronary disease Surgical History Surgery Date(Month/Year) Hernia repair Cardiac catheterization 07/25: Nonobstruc tive coronary disease
--- OUTSIDE RECORDS SUMMARY | 2024-09-07 12:14 | XMS_ITS ---
Demographics Address [address] [place] [address] Preferred Language en Marital Status Unknown Protestant Affiliation Unknown Race Ethnic Group or Author Organization [facility] Address [address] [place] [address] Support Name Relationship Address Phone ARLENE MCGEE Emergency Contact [address]09 [place] [address] ARELY WILLIS BARRY Guarantor Unknown [phone] Care Team Providers Care Flume Maker Name Role Phone Tiffani JEFFERSON, Hakeem Primary [...] Active Encounters Encounter Location Date Provider Diagnosis [facility] [place] [address] [place], [place] [phone] 10/16/2023 Yoseph Maldonaod Jr Encounter for screening colonoscopy Z12.11 and Colon polyps K63.5 ASSESSMENTS Encounter Date Diagnosis Assessment Notes Treatment Notes Treatment Clinical Notes 10/16/2023 Encounter for screening colonoscopy (ICD-10 - Z12.11) 10/16/2023 Colon polyps (ICD-10 - K63.5) PLAN OF TREATMENT No Information
--- OUTSIDE RECORDS SUMMARY | 2024-09-07 12:14 | XMS_ITS ---
Demographics Address [address] [place] [address] Preferred Language en Marital Status Unknown Scientology Affiliation Unknown Race Ethnic Group or Author Organization [facility] Address [address] [place] [phone] Support Name Relationship Address Phone ARELY ARLENE Emergency Contact [address] 07[address]09 [place], [place] [phone] WILLIS SINGH Guarantor Unknown [phone] Care Team Providers Care Linux Developer Name Role Phone Hakeem Nixon MD Primary Care Provider Yoseph Gonzales Jr [phone] REASON FOR VISIT pathology Encounters Encounter Location Date Provider Diagnosis [facility] [address] [place] [phone] 10/31/2023 Yoseph Maldonado Jr PLAN OF TREATMENT No Information
--- OUTSIDE RECORDS SUMMARY | 2024-09-07 12:15 | XMS_ITS ---
Demographics Address [address] [place] [address] Mobile Preferred Language en Marital Status unmarried Christianity Affiliation Unknown Race Ethnic Group or Author Organization Hakeem Nixon MD Address [address] [place], [place] [phone] Care Team Providers Care Social Director Name Role Phone Hakeem Nixon Primary Care Provider [phone] Allergies No Known Allergies Reason For [...] Location Date Provider Diagnosis Hakeem Nixon MD [address] [place] [address] [place] [phone] 08/10/2024 Hakeem Nixon Type 2 diabetes mellitus [...] R79.9) referral to nephrology/ REFERRAL FAXED TO [facility] FOR [facility]EDULING 08/10/2024 Essential hypertension (ICD-10 [...] referral to nephrolo gy/ REFERRAL FAXED TO [facility] FOR SCHEDULING Essential hypertension stable, will cont inue current regiment Colon cancer screening guaiac negative Depression screening negative screen CAD (coronary artery disease) stable, co ntinue current regiment Pending Test Test Name Order Date Blood Urea Nitrogen 08/10/2024 Creatinine 08/10/2024 Referrals Referral Date Details 08/10/2024 08/10/2024, ELEVATED BUN, Ajit Delgado Next Appt Details Provider Name:Hakeem clarke, 02/05/2025 08:00:00 AM, [address], [address], [place], [place], [phone], Provider Name:Hakeem Amy Caitie clarke, 02/26/2025 10:00:00 AM, [address], [address], [place], [phone], Provider Name:Hakeem vallesr, 08/05/2025 08:00:00 AM, [address], [address], [place], [phone], Provider Name:Hakeem Blood ier, 08/12/2025 11:00:00 AM, [address], [address], [place], [phone], Progress Notes * Annette SINGHtoDOB:0 1955 (69 yo M)Acc No.[id number]:08/10/2024 Progress Notes Patient:?Her SAMANTHAsong ertanaid Provider:?Hakeem Nixon MD :1955???Age:69 Y???Sex:Male Renzo e:08/10/2024 Address:[address] [facility] Subjective: * Chief Complaints: * [...] Random (Order 08/04/2024) (Collection Date & Time 08/04/2024 08:30 AM) ? Value Reference Range [...] >40 - mg/dL ???Lab:PSA,Total (Free>4and< 10) (Order 08/04/2024) (Collection Date & Time 08/04/2024 08:30 AM) ? Value Reference Range [...] mg/dL ?Urine Blood Negative Negative - ?Specific [place] - Urine 1.015 1.005-1.025 - ?Urine Protein [...] Notes: referral to nephrology/ REFERRAL FAXED TO [facility] FOR SCHEDULING? Referral To:Ajit Delgado??Nephrology ?Reason:ELEVATED [...] Nixon MD Date:?0 08/10/2024 Generated for Kathy cleveland/Dameon/eTrachelsmitting on:?09/07/2024 12:14 PM EST History and Physical Notes * [...]
--- OUTSIDE RECORDS SUMMARY | 2024-09-07 12:15 | XMS_ITS ---
Demographics Address [address] [place] [address] Mobile Preferred Language en Marital Status unmarried Temple Affiliation Unknown Race Ethnic Group or Author Organization Hakeem Nixon MD Address [address] [place], [place] [phone] Care Team Providers Care Swiss Type Screw Machine Operator Name Role Phone Hakeem Nixon Primary Care Provider Results Component Value Reference Range Notes Complete Blood Count Auto Di ff Reviewed date:08/04/2024 01:13:03 PM Interpretation: Performing Lab:[facility], [address] [place] [phone] Notes/Report: White Blood Count 8.3 4.8-10.8 X10*3/uL [...] NRBC Abs Auto 0.000 0.0-0.012 X10*3/uL [facility] [place]. Panel Fa Reviewed date:08/10/2024 02:18:47 PM Interpretation:08-10-24 Performing Lab:[address] [phone] Notes/Report: Sodium 144 135-145 mmol/L Potassium 5.2 [...] Panel Reviewed date:08/04/2024 12:24:02 PM Interpretation: Performing Lab:[address] [phone] Notes/Report: Triglycerides 107 <150 mg/dL Desirable Triglyceride: [...] (Free>4and<10) Reviewed date:08/04/2024 12:40:01 PM Interpretation: Performing Lab:[address] [phone] Notes/Report: PSA,Total (Free>4and<10) 0.77 0.00-4.00 ng/mL A [...] Random Reviewed date:08/04/2024 01:00:09 PM Interpretation: Performing Lab:[facility], [address] [place] [phone] Notes/Report: Creatinine Urine 82.52 Microalbumin Urine 28.0 Microalbum/Creatinine Ratio Ur 33.9 <30 ug/mg cr Albumin/Creatinine Ratio Reference Ranges: Normal: < 30 ug/mg creatinine Microalbuminuria: 30 - 300 ug/mg creatinine Clinical Albuminuria: > 300 ug/mg creatinine Hemoglobin A1c Reviewed date:08/04/2024 12:30:48 PM Interpretation: Performing Lab:[facility], [address] [place] [phone] Notes/Report: Hemoglobin A1c % 6.8 <6.0 % [...] average glucose, using the formula of the U6V-Klpwnrx Average Glucose study (ADAG), Diabetes Care, Vol.31,#8, Feb. 2007 UA ClnCatch+Micro w/rflx Cul t Reviewed date:08/04/2024 01:26:51 PM Interpretation: Performing Lab:[facility], [address] [place] [phone] Notes/Report: Urine, Clean Catch Color Urine Yellow Appearance Urine Clear PH 6.5 5.0-9.0 Glucose Urine UA Negative Negative mg/dL Urine Blood Negative Negative Specific [place] - Urine 1.015 1.005-1.025 Urine Protein Negative [...] Location Date Provider Diagnosis Hakeem Nixon MD [address] [place] [address] Drive [address] [place], [place] [phone] 08/04/2024 Hakeem Nixon Blood tests for routine [...] Of Treatment Next Appt Details Provider Name:Hakeem Reyes Caitie hair, 02/05/2025 08:00:00 AM, [address], [address], [place], [phone], Provider Name:Hakeem Amy Caitie ier, 02/26/2025 10:00:00 AM, [address], [address], [place], [phone], Provider Name:Hakeem Blood ier, 08/05/2025 08:00:00 AM, [address], [address], [place], [phone], Provider Name:Hakeem Amy Caitie vallesr, 08/12/2025 11:00:00 AM, [address], [address], [place], [phone], Progress Notes * Rosas SINGHDOB:0 1955 (69 yo M)Acc No.[id number]:08/04/2024 Progress Note Patient:?ARELY BERNARDOAHersong wolf Provider:?Hakeem Nixon MD :1955???Age:69 Y???Sex:Male Renzo e:08/04/2024 Address:[address] [facility] Subjective: * Chief Complaints: * [...] Time - 08/04/2024 08:30 AM) ?LAB: [facility] [place]. Panel Fast (Collection Date & Time - [...] Time - 08/04/2024 08:30 AM) ?LAB: [facility] [place]. Panel Fast (Collection Date & Time - [...] Time - 08/04/2024 08:30 AM) * Procedure Codes:?41923 VENIP UNCT, ROUTINE* * * The named appointment provid er may or may not be the originator of this progress note, and it is not deemed complete until electronically signed by the appointment provider. Sign off status: Pending * Provider:?Hakeem Nixon MD Date:?0 08/04/2024 Generated for Jaroni ng/Faxing/eTransmitting on:?09/07/2024 12:14 PM EST
== END 2024-09-07 10:32 | disposition home or self-care (01) ==
LOC: HO.LNP 10:31
PROVIDERS: Visit Provider Internal Medicine
DX: E11.9 Type 2 diabetes mellitus without complications (principal)
CPT/HCPCS: 82565; 84132; 84520

== ENCOUNTER 2024-09-16 15:18 | Outpatient (AMB) | payer MEDICARE, SELFPAY ==
[2024-09-16 15:21] VITALS: BP 120/80; PULSE 59; BMI 29.0
--- NOTE | 2024-09-16 15:21 | MHC.OFFVIS ---
Vital Signs 09/16/24 15:21 Height 5 ft 5 in Weight 174 lb 2.643 oz BMI 29.0 BP 120/80 Blood Pressure Location Lt brachial Position Sitting Pulse 59 Intake Visit Reasons: 1 yr f/up echo Intake Note: 1 year follow-up with ekg after echo feeling good Regrinder Operator Required: No Allergies No Known Allergies Allergy (Verified 08/28/24 14:35) Medication List - Last Reconciled 09/16/24 by Donal Hernandez MD amlodipine 10 mg PO DAILY aspirin 81 mg PO DAILY atorvastatin 40 mg PO DAILY lisinopril 40 mg PO DAILY metoprolol tartrate 50 mg PO BID tramadol 50 mg PO DAILY PRN HPI Comments Details: Rosas returns for follow-up regarding aortic valve replacement. In 2018, he had symptomatic aortic valve stenosis that led to bioprosthetic valve replacement. Since last seen, he states he feels good. No cardiac complaints whatsoever. No angina or shortness of breath or in fact anything along those lines. [facility] Medical History (Updated 08/28/24 @ 15:00 by Gustabo Rodarte MD) Non-rheumatic mitral valve stenosis Aortic stenosis Back pain Essential hypertension Atherosclerotic cardiovascular disease Surgical History H/O colonoscopy Hx of hernia repair History of cardiac catheterization (~08/07/17) History of aortic valve replacement (~09/27/17) Family History Father No problems noted. Mother No problems noted. Social History Alcohol intake: current Alcohol intake frequency: a few times a week Patient Tobacco Use Status: Current everyday Tobacco user Tobacco use type: Cigarette Cigarettes Per Day: 4 Years Smoked: 60 Current occupational status: employed and disabled Current occupation: [employer] Const Denies chills, Denies fatigue, Denies fever(s), Denies frequent falls, Denies weakness, Denies weight gain and Denies weight loss ENT Denies dizziness Card Denies chest pain, Denies leg edema, Denies lightheadedness, Denies palpitations, Denies dyspnea, Denies dyspnea on exertion, Denies orthopnea and Denies other (loss of consciousness) Resp Denies cough, Denies dyspnea and Denies dyspnea on exertion GI Denies hematochezia and Denies change in stool character Musc Denies abnormal gait, Denies muscle weakness, Denies numbness, Denies radiating pain into limb and Denies tingling Neuro Denies abnormal gait, Denies dizziness, Denies frequent falls, Denies numbness, Denies tingling and Denies weakness Endo Denies fatigue and Denies palpitations Physical Exam Vital Signs: Last Vital Signs Pulse 59 09/16/24 15:21 BP 120/80 09/16/24 15:21 BMI result Body Mass Index 29.0 Const General: comfortable and no acute distress Orientation/consciousness: patient oriented x3 HEENT Other: Unremarkable Head: Yes normal to inspection Neck Neck: Yes normal visual inspection Chest Chest palpation & inspection: normal inspection of the chest Resp Auscultation: clear to auscultation bilaterally Cardio Palpation: normal PMI Heart sounds: S1 normal heart sound present, S2 normal heart sound present, no gallops, Murmur heart sound present systolic II/ and at the right sternal border and no rubs GI Palpation (GI): Soft to palpation Back/Spine/Pelvis Other: unremarkable Skin General skin exam: no rashes or lesions noted Neuro General: patient oriented x3 Extrem General: Yes normal to inspection Psych Mental Status: mental status grossly normal Office Procedures EKG Details: EKG with sinus bradycardia, 59/Min; no significant ST-T changes and otherwise unremarkable[place] [address]-[id number], Complete Assessment & Plan Assessment & Plan (1) Status post aortic valve replacement with bioprosthetic valve: Code(s): Z95.3 - Presence of xenogenic heart valve Category: Surgical Plan: In the last echocardiogram, normally functioning bioprosthetic aortic valve with a mean gradient of 9 mm Hg. Continue long-term aspirin. Infective endocarditis prophylaxis per protocol. (2) Nonrheumatic mitral (valve) stenosis: Code(s): I34.2 - Nonrheumatic mitral (valve) stenosis Category: Medical Plan: Echocardiogram with moderate anterior/posterior mitral valve thickening and mild mitral annular calcification. Suspected mild mitral stenosis. Clinically, no definitive symptoms. (3) Atherosclerotic cardiovascular disease: Code(s): I25.10 - Atherosclerotic heart disease of [place] coronary artery without angina pectoris Category: Medical Plan: Preoperative cardiac catheterization had mild disease in the LAD but otherwise unremarkable. Continue statins. Last LDL 68 mg/dL. (4) Essential hypertension: Code(s): I10 - Essential (primary) hypertension Category: Medical Plan: Stable. On metoprolol, amlodipine, lisinopril. Orders: Orders CA echo transthoracic complete Today Z95.3 - Presence of xenogenic heart valve Coding Level of Care Code Est Pt Level 4 (33974) Diagnoses Status post aortic valve replacement with bioprosthetic valve Z95.3 Nonrheumatic mitral (valve) stenosis I34.2 Atherosclerotic cardiovascular disease I25.10 Essential hypertension I10 CPT Codes EKG - CPT: 27690-Ohikfplpwdhxeemld, Complete ([id number])
--- OUTSIDE RECORDS SUMMARY | 2024-09-16 18:04 | XMS_ITS ---
Demographics Address [address] [place] [address] Preferred Language en Marital Status Unknown Bahai Affiliation Unknown Race Ethnic Group or Author Organization [facility] Address [address] [place] [phone] Support Name Relationship Address Phone ARLENE MCGEE Emergency Contact [address] [place], [place] [phone] ARELY WILLIS BARRY Guarantor Unknown Care Team Providers Care Mail Handler Sorter Name Role Phone Tiffani JEFFERSON, Hakeem Primary Care Provider Yoseph Gonzales Jr [phone] REASON FOR VISIT pathology Encounters Encounter Location Date Provider Diagnosis [facility] [address] [place] [phone] 10/31/2023 Yoseph Maldonado Jr Plan Of Treatment No Information Progress Notes * ARELY BARRYHERDURANXIMENADOB:0 1955 (68 yo M)Acc No.[id number]:10/31/2023 Patient:?AMBAR SINGH :1955???Age:68 Y???Sex:Male Address:[address] [place] [address] * true * Date:? Generated for Kathy cleveland/Dameon/eTransmitting on:?09/16/2024 06:04 PM EDT
--- OUTSIDE RECORDS SUMMARY | 2024-09-16 18:04 | XMS_ITS ---
Demographics Address [address] [place] [address] Preferred Language en Marital Status Unknown Taoism Affiliation Unknown Race Ethnic Group or Author Organization [facility] Address [address] [place] [address] Support Name Relationship Address Phone ARLENE MCGEE Emergency Contact [address] [place] [address] WILLIS SINGH Guarantor Unknown Care Team Providers Care Staple Laster Name Role Phone Tiffani JEFFERSON, Hakeem Primary Care Provider Yoseph Gonzales Jr Unavailable Allergies No Known Allergies REASON FOR VISIT Patient presents today for a recall colonoscopy Medications Medication SIG (Take, Route, Frequency, Duration) [...] HCl 50 MG Orally as needed Active Social History Tobacco Use: Social History Observation Description Date Details (start date - stop date) Current Smoker NA - NA Tobacco Use/Smoking Question Answer Notes Patient is [...] drinks (0 point) Points 3 Interpretation Negative Problems Problem Type SNOMED Code ICD Code Onset Dates Problem Status W/U Status Risk Notes Problem 969532090 Encounter for other preprocedural examination (Z01.818) Active confirmed Problem 564120252 Long-term use of aspirin therapy (Z79.82) Active confirmed Vital Signs Temperature 97.5 degrees Fahrenheit 09/30/19 24 Blood pressure systolic 000 mm Hg 09/30/19 24 Blood pressure diastolic 00 mm Hg 024 Height 65 in 09/30/2023 Weight 165 lbs 09/30/2023 BMI 27.45 kg/m2 09/30/2023 Encounters Encounter Location Date Provider Diagnosis [facility] [address] [place] [address] 09/30/2023 Yoseph Maldonado Jr Colon cancer screening Z12.11 ; Encounter for other preprocedural examination Z01.818 and Long-term use of aspirin therapy Z79.82 Assessments Encounter Date Diagnosis (ICD Code) Assessment Notes Treatment Notes Treatment Clinical Notes Section Notes 09/30/2023 Colon cancer screening (ICD-10 - Z12.11) Colonoscopy material was printed We discussed colonoscopy today. Discussed risks and benefits of the procedure today. He understands these and agrees to proceed. This will be scheduled at his convenience. He is advised stop aspirin and NSAIDs one week before the procedure. 09/30/2023 Encounter for other preprocedural examination (ICD-10 - Z01.818) We discussed colonoscopy today. Discussed risks and benefits of the procedure today. He understands these and agrees to proceed. This will be scheduled at his convenience. He is advised stop aspirin and NSAIDs one week before the procedure. 09/30/2023 Long-term use of aspirin therapy (ICD-10 - Z79.82) We discussed colonoscopy today. Discussed risks and benefits of the procedure today. He understands these and agrees to proceed. This will be scheduled at his convenience. He is advised stop aspirin and NSAIDs one week before the procedure. Plan Of Treatment Medication Medication Name Sig [...] Up: 1 Year, Reason: Progress Notes * SHELLI SINGHB:0 1955 (68 yo M)Acc No.[id number]:09/30/2023 Progress Notes Patient:?AMBAR SINGH Provider:?Yoseph Maldonado MD :1955???Age:68 Y???Sex:Male Renzo e:09/30/2023 Address: [address] [place] [address] Pcp:Hakeem Nixon MD Subjective: * Chief Complaints: * ???1. Patient presents today for a recall colonoscopy. * HPI: ???New symptom(s):? The patient is a 68-year-old man seen today for his preoperative colonoscopy visit. He has a personal history of colon polyps and last underwent colonoscopy in 2018 with removal of a small tubular adenoma. Five-year followup was recommended. He has no complaints of rectal bleeding or change in his bowel habits. Weight and appetite have been stable. * ROS:?General/Constitutional:?Change in appetite?denies.?Fatigue?denies.?ENT:?Patient denies?difficulty swallowing.?Respiratory:?Patient denies?shortness of breath.?Cardiovascular:?Patient denies?chest pain.?Gastrointestinal:?Comments?See HPI for details.?Genitourinary:?Difficulty urinating?denies.?Incontinence?denies.?Musculoskeletal:?Patient denies?muscle aches.?Skin:?Patient denies?pruritis.?Neurologic:?Patient denies?low back pain.?Psychiatric:?Patient denies?mental or physical abuse.? * Medical History:?Hypertensio n, Back pain/DJD, Aortic stenosis status post aVR, non-rheumatic mitral stenosis, coronary disease. * Surgical History:?Hernia rep air , Cardiac catheterization 07/25: Nonobstructive coronary disease . * Family History:?Father: dece ased.?Mother: alive.? no known hx of colon cancer polyps or liver ds. * Social History:?Tobacco Use:?Tobacco Use/Smoking?Patient is a?current smoker,?How often do you smoke cigarettes??every day,?How many cigarettes a day do you smoke??5 or less.?Drugs/Alcohol:?Alcohol Screen?Did you have a drink containing alcohol in the past year??Yes,?How often did you have a drink containing alcohol in the past year??2 to 3 times a week (3 points),?How many drinks did you have on a typical day when you were drinking in the past year??1 or 2 drinks (0 point),?Points?3,?Interpretation?Negative.? * Medications:?Taking Lisinopr il 20 MG Tablet Orally Once a day, Taking traMADol HCl 50 MG Tablet Orally as needed, Taking Atorvastatin Calcium 40 MG Tablet TAKE [...] TABLET BY MOUTH EVERY DAY Oral , Discontinued Colyte with Flavor Packs 240 GM Solution Reconstituted As directed Orally Over the specified time., Medication List reviewed and reconciled with the patient * Allergies:?N.K.D.A. Objective: * Vitals:?Wt: 165 lbs, Ht: 65 in, BMI:27.45 Index, BP: 000/00 mm Hg, Temp: 97.5. * Examination: ???General Examination: ?GENERAL APPEARANCE:?in no acute distress.?HEAD:?normocephalic.?EYES:?sclera non-icteric.?ORAL CAVITY:?mucosa moist.?NECK/THYROID:?no lymphadenopathy.?SKIN:?anicteric.?HEART:?S1, S2 normal, no murmurs.?LUNGS:?clear to auscultation bilaterally.?CHEST:?normal shape and expansion.?ABDOMEN:?soft, nontender, nondistended, bowel sounds present, no organomegaly .?EXTREMITIES:?no clubbing, cyanosis, or edema.?PSYCH:?cognitive function intact.? Assessment: * Assessment: 1.?Encounter for other prepr ocedural examination - Z01.818 (Primary)?2.?Colon cancer screening - Z12.11?3.?Long-term use of aspirin therapy - Z79.82? We discussed colonoscopy tocollin lubin. Discussed risks and benefits of the procedure today. He understands these and agrees to proceed. This will be scheduled at his convenience. He is advised stop aspirin and NSAIDs one week before the procedure. Plan: * Treatment: Notes: Colonoscopy material was printed?? * Procedure Codes:?3017F COLOR ECTAL CA SCREEN DOC REV, G9902 Pt scrn tbco and id as user, G9744 PATIENT NOT ELIG D/T ACTIVE DX HTN * Preventive Medicine:? ??Counseling:?Care goal follow-up plan:?Above Normal BMI Follow-up?Giving encouragement to exercise,?BMI management provided?Yes.? * Follow Up:?1 Year * * Sign off status: Completed true * Provider:?Yoseph Maldonado MD Date:?0 09/30/2023 Generated for Kathy cleveland/Dameon/eTmarilynnitting on:?09/16/2024 06:04 PM EDT History and Physical Notes * HPI (History of Present Illness) Category Sub-Category Detail Notes Category Not es New symptom(s) The patient i s a 68-year-old man seen today for his preoperative colonoscopy visit. He has a personal history of colon polyps and last underwent colonoscopy in 2018 with removal of a small tubular adenoma. Five-year followup was recommended. He has no complaints of rectal bleeding or change in his bowel habits. Weight and appetite have been stable. Examination Category Sub-Category Detail Notes Category Not es General Examination GENERAL APPEARANCE: in no acute di stress HEAD: normocephalic EYES: sclera non-icteric NECK/THYROID: no lymphadenopathy HEART: S1, S2 normal, no mu rmurs CHEST: normal shape and exp ansion LUNGS: clear to auscultatio n bilaterally ABDOMEN: soft, nontender, non distended, bowel sounds present, no organomegaly SKIN: anicteric EXTREMITIES: no clubbing, cyanosi s, or edema PSYCH: cognitive function i ntact ORAL CAVITY: mucosa moist
--- OUTSIDE RECORDS SUMMARY | 2024-09-16 18:05 | XMS_ITS | Patient Health Record ---
Demographics Address [address] [place] [address] Preferred Language en Marital Status Unknown Lutheran Affiliation Unknown Race Ethnic Group or Author Organization [facility] Address [address] [place] [address] Support Name Relationship Address Phone ARLENE MCGEE Emergency Contact [address] [place], [place] [phone] WILLIS SINGH Guarantor Unknown [phone] Care Team Providers Care Prison Guard Supervisor Name Role Phone Tiffani JEFFERSON, Hakeem Primary Care Provider Yoseph Gonzales Jr [phone] Allergies No Known Allergies Results Component Value Reference Range Notes Pathology Reviewed date:10/31/2023 09:29:19 AM Interpretation: Performing Lab:[facility], [address] [place] [phone] Notes/Report: Name: Arsenio RamiresTravis Age/Sex: 68/M : 1955 [id number] [id number] Attend Dr: Yoseph Maldonado MD Re10/16/23 Status : [facility] Location: [facility] Disch: SPEC : [id number] RECD : 10/17/23 STATUS: SOCO LERNER NUM: [id number] DONYA: 10/16/23-[address] [facility] [address]: Yoseph Maldonado MD ENTERED: 10/17/23- SP TYPE: Surgical OTHR DR: Hakeem Nixon MD ORDERED: HE Stain/9, Gross Micro L4/3 Diagnosis A. Colon, at 60 cm, polyp: Tubular adenoma; negative for high-grade dysplasia and carcinoma. B. Colon, at 40 cm, polyp: Tubular adenoma, likely excised; negative for high-grade dysplasia and carcinoma. C. Colon, at 20 cm, polyp: Tubular adenoma; negative for high-grade dysplasia and carcinoma. Clinical History Pre-Op Dx: Encounter for screening for malignant neoplasm of colon Post-Op Dx: Polyps Microscopic Description Microscopic sections reviewed. Material Received A. Polyp at 60 B. Polyp at 40 C. Polyp at 20 Gross Description Received in 3 parts. Part A: Received in formalin labeled ?polyp at 60? are 2 sharma irregular tissue fragments measuring 0.15 and 0 .25 cm, submitted in toto in a cassette labeled A. Part B: Received in formalin labeled ?polyp at 40? is a 1.5 x 0.3 x 0.25 cm pale, sharma rectangular-papular tissue fragment, submitted in toto in a cassette labeled B. Part C: Received in formalin labeled ?polyp at 20? are 2 kim-sharma papular and rectangular tissue fragments shannon suring 0.4 and 1.4 cm, submitted in toto in a cassette labeled C. VIVIANES CONTINUED ON NEXT PAGE Name: Arsenio RamiresTravis Age/Sex: 68/M : 1955 Unit#: [id number] Attend Dr: Yoseph Maldonado MD Re10/16/23 Status : [facility] Location: [place] Disch: SPEC : [id number] RECD : 10/17/23 STATUS: SOCO LERNER NUM: [id number] DONYA: 10/16/23-[address] [facility] [address]: Yoseph Maldonado MD ENTERED: 10/17/23- SP TYPE: Surgical OTHR DR: Hakeem Nixon MD ORDERED: ABRAHAM Stain/9, Asuncion Ricks L4/3 Copies To: Hakeem Nixon MD [address] [place] [address] [address] Yoseph Maldonado MD [address] [place] [address] [address] [place] [address] Signed (si gnature on file) Sarah Salinas 10/18/23 1703 END OF REPORT Reason For Referral No Information Medications Medication SIG (Take, Route, Frequency, Duration) [...] HCl 50 MG Orally as needed Active Immunizations Vaccine Route Administration Date Status Comme nts Influenza Unknown 04/23/2023 Administered Social History Tobacco Use: Social History Observation [...] Problem Status W/U Status Risk Notes Problem 136568004 Colon cancer screening (Z12.11) Active confirmed Problem 979027831 Encounter for other preprocedural examination (Z01.818) Active confirmed Problem 982187145 Long-term use of aspirin therapy (Z79.82) Active confirmed Vital Signs Temperature 97.5 degrees Fahrenheit 09/30/2023 Blood pressure diastolic 00 mm Hg 09/30/2023 Height 65 in 09/30/2023 Blood pressure systolic 000 mm Hg 09/30/2023 Weight 165 lbs 09/30/2023 BMI 27.45 kg/m2 09/30/2023 Encounters Encounter Location Date Provider Diagnosis [facility] Outpatient [address] [place] [phone] 10/16/2023 Yoseph Maldonado Jr Encounter for screening colonoscopy Z12.11 and Colon polyps K63.5 [facility] [address] [place] [address] 09/30/2023 Yoseph Maldonado Jr Colon cancer screening Z12.11 ; Encounter for other preprocedural examination Z01.818 and Long-term use of aspirin therapy Z79.82 [facility] [address] [place] [address] 10/31/2023 Yoseph Maldonado Jr Assessments Encounter Date Diagnosis (ICD Code) Assessment [...] week before the procedure. Plan Of Treatment Future Test Test Name Order Date COLONOSCOPY 08/29/2017 COLONOSCOPY 09/30/2023 Insurance Providers Payer Name Payer Address Payer Phone Subscriber Number Group Number Insured Name Patient Relationship to Insured Coverage Start Date Coverage End Date [employer] [address] [place], [place] [id number] WILLIS SINGH Self - patient is the insured Medical (General) History Medical History History ICD Code Hypertension Back pain/DJD Aortic stenosis status post aVR, non-rheumatic mitral stenosis, coronary disease Surgical History Surgery Date(Month/Year) Hernia repair Cardiac catheterization 07/25: Nonobstruc tive coronary disease
--- OUTSIDE RECORDS SUMMARY | 2024-09-16 18:05 | XMS_ITS ---
Demographics Address [address] [place] [address] Preferred Language en Marital Status Unknown Yarsani Affiliation Unknown Race Ethnic Group or Author Organization [facility] Address [address] [place] [address] Support Name Relationship Address Phone ARLENE MCGEE Emergency Contact [address] [place] [address] WILLIS SINGH Guarantor Unknown [phone] Care Team Providers Care Set Off Blocker Name Role Phone Tiffani JEFFERSON, Hakeem Primary Care Provider Jorge A Maldonado Jr, Yoseph Yañez [phone] REASON FOR VISIT screening Medications Medication [...] Active Encounters Encounter Location Date Provider Diagnosis [facility] [address] [place], [place] [phone] 10/16/2023 Yoseph Maldonado Jr Encounter for screening colonoscopy Z12.11 and Colon polyps K63.5 Assessments Encounter Date Diagnosis (ICD Code) Assessment Notes Treatment Notes Treatment Clinical Notes Section Notes 10/16/2023 Encounter for screening colonoscopy (ICD-10 - Z12.11) 10/16/2023 Colon polyps (ICD-10 - K63.5) Plan Of Treatment No Information Progress Notes * VALDEZ SINGH:0 1955 (69 yo M)Acc No.[id number]:10/16/2023 COLON WITH MAC Patient:?AMBAR SINGH Provider:?Yoseph Maldonado MD :1955???Age:68 Y???Sex:Male Renzo e:10/16/2023 Address: [address] [place] [address] Pcp:Hakeem Nixon MD Subjective: * Chief Complaints: * ???1. Screening. * Medical History:? * Medications:?Taking Lisinopr il 20 MG Tablet Orally Once a day [...] the day before the procedure Objective: * Vitals:? Assessment: * Assessment: 1.?Encounter for screening c olonoscopy - Z12.11 (Primary)???2.?Colon polyps - K63.5??? Plan: * Treatment: * Procedure Codes:?43170 LESIO N REMOVAL COLONOSCOPY, 10409 COLONOSCOPY AND BIOPSY, Modifiers: 59 * * The named appointment provid er may or may not be the originator of this progress note, and it is not deemed complete until electronically signed by the appointment provider. Sign off status: Pending * Provider:?Yoseph Maldonado MD Date:?0 10/16/2023 Generated for Kathy cleveland/Dameon/Niraliitting on:?09/16/2024 06:05 PM EDT
--- OUTSIDE RECORDS SUMMARY | 2024-09-16 18:05 | XMS_ITS | Clinical Summary ---
Demographics Address [address] [place] [address] Work Phone Preferred Language es Marital Status Unknown Synagogue Affiliation Unknown Race Other Race Ethnic Group or Author Organization [facility] Address [address] [place] [address] Care Team Providers Care Vending Machine Coin Collector Name Role Phone Unavailable Primary Care Provider [...]
--- OUTSIDE RECORDS SUMMARY | 2024-09-16 18:05 | XMS_ITS ---
Demographics Address [address] [place] [address] Mobile Preferred Language en Marital Status unmarried Congregational Affiliation Unknown Race Ethnic Group or Author Organization Hakeem Nixon MD Address [address] [place] [phone] Care Team Providers Care Plastic Products Sales Representative Name Role Phone Hakeem Nixon Primary Care Provider [phone] REASON FOR VISIT RF tramadol Medications Medication SIG (Take, Route, Fr equency, Duration) Notes Start Date End Date Status traMADol HCl 50 MG 1 tablet as needed O rally Once a day for 30 days 09/10/2024 Active Encounters Encounter Location Date Provider Diagnosis Hakeem Nixon MD [address] [place] [phone] 09/10/2024 Hakeem Nixon Acute right-sided low back [...] 09/10/2024 Next Appt Details Provider Name:Hakeem clarke, 02/05/2025 08:00:00 AM, [address], Suite [facility], [place], [place], [phone], Provider Name:Hakeem clarke, 02/26/2025 10:00:00 AM, [address], [address], [place], [place], [phone], Provider Name:Hakeem Blood tricia, 08/05/2025 08:00:00 AM, [address], [address], [place], [phone], Provider Name:Hakeem Blood tricia, 08/12/2025 11:00:00 AM, [address], [address], [place], [place], [phone], Progress Notes * ARELY BARRYRosasDOB:0 1955 (69 yo M)Acc No.[id number]:09/10/2024 Patient:?Kayli SINGH :1955???Age:69 Y???Sex:Male Address:[address] [place] [address] * Refills? Refill traMADol HCl Tablet, 50 MG, Orally, 30 Tablet, 1 tablet as needed, Once a day, 30 days, Refills=2 * true * Date:? Generated for Kathy cleveland/Dameon/Ozielsmitting on:?09/16/2024 06:05 PM EDT
--- OUTSIDE RECORDS SUMMARY | 2024-09-16 18:05 | XMS_ITS ---
Demographics Address [address] [place] [address] Mobile Preferred Language en Marital Status unmarried Amish Affiliation Unknown Race Ethnic Group or Author Organization Hakeem Nixon MD Address [address] [place], [place] [phone] Care Team Providers Care Circle Edger Name Role Phone Hakeem Nixon Primary Care [...] Lisinopril 40 MG TAKE 1 TABLET BY TH EVERY DAY Active Atorvastatin Calcium 40 [...] Location Date Provider Diagnosis Hakeem Nixon MD [address] [place] [address] [place] [phone] 08/10/2024 Hakeem Nixon Type 2 diabetes mellitus [...] R79.9) referral to nephrology/ REFERRAL FAXED [place] [facility] 08/10/2024 Essential hypertension (ICD-10 [...] referral to nephrolo gy/ REFERRAL FAXED TO [facility] FOR [facility]EDULING Essential hypertension stable, will cont inue current regiment Colon cancer screening guaiac negative Depression screening negative screen CAD (coronary artery disease) stable, co ntinue current regiment Referrals Referral Date Details 08/10/2024 08/10/2024, ELEVATED BUN, Ajit Delgado Next Appt Details Provider Name:Hakeem clarke, 02/05/2025 08:00:00 AM, [address], [address], [place], [phone], Provider Name:Hakeem vallesr, 02/26/2025 10:00:00 AM, [address], [address], [place], [phone], Provider Name:Hakeem vallesr, 08/05/2025 08:00:00 AM, [address], [address], [place], [phone], Provider Name:Hakeem Blood ier, 08/12/2025 11:00:00 AM, [address], [address], [place], [phone], Progress Notes * Rosas SINGHDOB:0 1955 (69 yo M)Acc No.[id number]:08/10/2024 Progress Notes Patient:?ARELY BARRY song billyo Provider:?Hakeem Nixon MD :1955???Age:69 Y???Sex:Male Renzo e:08/10/2024 Address:[address] [place], [place] Subjective: * Chief Complaints: * ???ANNUAL EXAM/ [...] 10) (Order 08/04/2024) (Collection Date & Time - [...] mg/dL ?Urine Blood Negative Negative - ?Specific [place] - Urine 1.015 1.005-1.025 - ?Urine Protein [...] Notes: referral to nephrology/ REFERRAL FAXED TO [facility]EDULING? Referral To:Ajit Delgado??Nephrology ?Reason:ELEVATED [...] MD Date:?0 08/10/2024 Generated for Kathy cleveland/Dameon/eTrachelsmitting on:?09/16/2024 06:05 PM EDT History and Physical Notes * [...]
--- OUTSIDE RECORDS SUMMARY | 2024-09-16 18:05 | XMS_ITS ---
Demographics Address [address] [place] [address] Mobile Preferred Language en Marital Status unmarried Christian Affiliation Unknown Race Ethnic Group or Author Organization Hakeem Nixon MD Address [address] [place], [place] [phone] Care Team Providers Care Brokerage Manager Name Role Phone Hakeem Nixon Primary Care Provider Results Component Value Reference Range Notes Potassium Reviewed date:09/07/2024 11:04:39 AM Interpretation: Performing Lab:[facility], [address] [place] [phone] Notes/Report: Potassium 4.5 3.3-5.1 mmol/L Blood Urea Nitrogen Reviewed date:09/07/2024 12:33:18 PM Interpretation: Performing Lab:[facility], [address] [place] [phone] Notes/Report: Blood Urea Nitrogen 17 9-16 mg/dL Creatinine Reviewed date:09/07/2024 12:30:10 PM Interpretation: Performing Lab:[facility], [address] [place] [phone] Notes/Report: Creatinine 1.34 0.5-1.4 mg/dL Estimated Glomerular Filt Rate 53 Chronic Kidney Disease: Estimated GFR < 60 mL/min/1.73m2 Severe Kidney Disease: Estimated GFR < 15 mL/min/1.73m2 REASON FOR VISIT BUN, CREATININE, POTASSIUM Encounters Encounter Location Date Provider Diagnosis Hakeem Nixon MD [address] [place], [place] [phone] 09/07/2024 Hakeem Nixon Essential hypertension I10 and [...] Of Treatment Next Appt Details Provider Name:Hakeem clarke, 02/05/2025 08:00:00 AM, [address] [place] [address], Suite [facility], [place], [place], [phone], Provider Name:Hakeem clarke, 02/26/2025 10:00:00 AM, [address] [place] [address], Suite [facility], [place], [place], [phone], Provider Name:Hakeem clarke, 08/05/2025 08:00:00 AM, [address] [place] [address], Suite [facility], [place], [place], [phone], Provider Name:Hakeem vallesr, 08/12/2025 11:00:00 AM, [address] [place] [address], Suite [facility], [place], [place], [phone], Progress Notes * Her SAMANTHAisraelDOB:0 1955 (69 yo M)Acc No.[id number]:09/07/2024 Progress Note [facility]:?Hakeem Nixon MD :1955???Age:69 Y???Sex:Male Renzo e:09/07/2024 Address:[address] [place], [place] Subjective: * Chief Complaints: * ???1. BUN, CREATININE, POTAS SIUM. * Medical History:? Objective: * Vitals:? Assessment: * Assessment: 1.?Essential hypertension - I10 (Primary)???2.?Type 2 diabetes mellitus without complication, without long-term current use of insulin - E11.9??? Plan: * Treatment: * Procedure Codes:?31905 VENIP UNCT, ROUTINE* * * The named appointment provid er may or may not be the originator of this progress note, and it is not deemed complete until electronically signed by the appointment provider. Sign off status: Pending * Provider:?Hakeem Nixon MD Date:?0 09/07/2024 Generated for Kathy cleveland/Dameon/Niraliitting on:?09/16/2024 06:04 PM EDT
== END 2024-09-16 16:02 | disposition home or self-care (01) ==
LOC: HO.HCS 15:19
PROVIDERS: PCP Internal Medicine; Visit Provider Internal Medicine
DX: Z95.3 Presence of xenogenic heart valve (principal); I34.2 Nonrheumatic mitral (valve) stenosis; I25.10 Atherosclerotic heart disease of native coronary artery without angina pectoris; I10 Essential (primary) hypertension
CPT/HCPCS: 93010; 99214

== ENCOUNTER → 2024-09-16 15:18 | Outpatient (BNVA) | payer MEDICARE, SELFPAY | PROVIDERS: PCP Internal Medicine; Visit Provider Internal Medicine | DX: I25.10 Atherosclerotic heart disease of native coronary artery without angina pectoris (principal); I34.2 Nonrheumatic mitral (valve) stenosis; I10 Essential (primary) hypertension; R94.31 Abnormal electrocardiogram [ECG] [EKG]; R00.1 Bradycardia, unspecified; Z95.3 Presence of xenogenic heart valve | CPT/HCPCS: 93005; 99212 ==

== ENCOUNTER → 2024-10-09 08:52 | Outpatient (REF) | payer MEDICARE, SELFPAY ==
--- NOTE | 2024-10-09 08:55 | CA_ITS ---
Transthoracic Echocardiogram Patient (Last, First, Middle): Rosas Kirkland, Gender: Male Date of : 1955 Age: 69 Procedure Date: 10/09/2024 Procedure Type: Transthoracic Echocardiogram Location: OP Height: 165. cm Weight: 77.11 kg BSA: 1.85 m2 Heart Rate: 50 bpm BP: 130 / 80 mmHg Director Women: ONESIMO Referring MD: Donal Hernandez MD Symptoms: Z95.3 - Presence of xenogenic heart valve Study Quality: Adequate w/Contrast ECG Rhythm: Bradycardia Conclusions: - The left ventricular systolic function is low normal. The calculated ejection fraction is 53% by biplane method. - A bioprosthetic aortic valve is present. The prosthetic aortic valve appears to be functioning normally. Findings Procedure Information Contrast agent, definity, is being given per protocol without apparent complications. Left Ventricle Normal left ventricular cavity size. The left ventricular systolic function is low normal. The calculated ejection fraction is 53% by biplane method. There is no evidence of regional wall motion abnormalities. Evidence suggests grade II (moderate) diastolic dysfunction. There is mild septal asymmetric hypertrophy. Right Ventricle Mildly increased right ventricular cavity size. There is mild to moderately decreased right ventricular systolic function. Atria The left atrium is moderately dilated. The right atrium is normal in size. Aortic Valve A bioprosthetic aortic valve is present. The prosthetic aortic valve appears to be functioning normally. There is no aortic valve regurgitation. Mitral Valve The mitral valve appears rheumatic. There is mild anterior mitral leaflet thickening. There is mild mitral annular calcification. There is trace mitral valve regurgitation. There is no mitral valve stenosis. Pulmonic Valve The pulmonic valve is likely normal. There is trace pulmonic valve regurgitation. Tricuspid Valve There is no tricuspid valve regurgitation. Tricuspid regurgitation envelope is inadequate for calculation of right ventricular systolic pressure. Great Vessels The asc aorta is normal in size. Venous The inferior vena cava is normal in size and collapses less than 50% with inspiration. Pericardium/Pleural There is no evidence of pericardial effusion. Prior Study Comparison No significant change compared to prior study dated: 08/14/2022. Measurements 2D Linear Measurements IVSd: 1.16 0.6-0.9/0.6-1.0 cm LVIDd: 4.39 3.9-5.3/4.2-5.9 cm LVIDd Index: 2.37 2.4-3.2/2.2-3.1 cm/m2 LVIDs: 2.89 2.0-3.6 cm LVPWd: 0.97 0.7-1.1 cm LA Diam: 4.50 2.7-3.8/3.0-4.0 cm LAIDs Index: 2.43 1.5-2.3 cm/m2 LV Mass: 200.80 67-162/88-224 g LV Mass Index: 108.54 43-95/49-115 g/m2 LVOT Diam: 2.20 3.0+(-)1.3 cm 2D Systolic Function EF 4C: 54.80 >55% EF 2C: 53.80 >55% EF BiP: 53.10 >55% Mitral Valve MV VTI: 0.47 MV Pk Garrett: 1.18 MV Mn Garrett: 0.64 MV Pk Grad: 6.00 MV Mn Grad: 2.00 MV Pk E: 1.26 MV PK A: 0.99 MV Decel Time: 297.00 E/A: 1.30 E'Lateral: 6.42 E'Medial: 4.79 E/E' Med: 26.30 E/E' Lat: 19.60 PHT: 87.00 MVA PHT: 2.53 MVA Continuity: 2.24 Decel [place]: 4.23 Aortic Valve AoV Pk Garrett: 1.70 AoV Mn Garrett: 1.20 AoV VTI: 0.39 AoV Pk Grad: 12.00 Aov Mn Grad: 7.00 [place] Cont.VTI: 2.70 LVOT LVOT Pk Garrett: 1.18 LVOT Mn Garrett: 0.79 LVOT VTI: 0.28 LVOT Pk Grad: 6.00 LVOT Mn Grad: 3.00 LVOT Diam: 2.20 LVOT Area: 3.80 Diastolic Function MV Pk E: 1.26 MV Pk A: 0.99 E/A: 1.30 E'Medial: 4.79 E/E' Med: 26.30 E' Laterial: 6.42 E/E' Lat: 19.60 Right Ventricle TAPSE (mm): 11.50 TVS' Garrett: 7.83 Tricuspid Valve RA Press: 8.00 Great Vessels Aorta Sinus of Valsalva: 3.40 2.0-3.5 cm Ao Asc: 3.50 2.1-3.4 cm Pulmonary Valve PV Pk Garrett: 0.84 Peak PV Grad: 3.00 Updated in Other Vendor System with Status of Final Donal Hernandez MD electronically signed on 10/10/2024 12:26:38 PM with status of Final
--- OUTSIDE RECORDS SUMMARY | 2024-10-09 09:25 | XMS_ITS ---
Demographics Address [address] [place] [address] Mobile Preferred Language en Marital Status unmarried Sikhism Affiliation Unknown Race Ethnic Group or Author Organization Hakeem Nixon MD Address [address] [place], [place] [phone] Care Team Providers Care Customer Experience Retail Clerk Name Role Phone Hakeem Nixon Primary Care Provider Results Component Value Reference Range Notes Potassium Reviewed date:09/07/2024 11:04:39 AM Interpretation: Performing Lab:[facility], [address] [place] [phone] Notes/Report: Potassium 4.5 3.3-5.1 mmol/L Blood Urea Nitrogen Reviewed date:09/07/2024 12:33:18 PM Interpretation: Performing Lab:[facility], [address] [place] [phone] Notes/Report: Blood Urea Nitrogen 17 9-16 mg/dL Creatinine Reviewed date:09/07/2024 12:30:10 PM Interpretation: Performing Lab:[facility], [address] [place] [phone] Notes/Report: Creatinine 1.34 0.5-1.4 mg/dL Estimated Glomerular Filt Rate 53 Chronic Kidney Disease: Estimated GFR < 60 mL/min/1.73m2 Severe Kidney Disease: Estimated GFR < 15 mL/min/1.73m2 REASON FOR VISIT BUN, CREATININE, POTASSIUM Encounters Encounter Location Date Provider Diagnosis Hakeem Nixon MD [address] [place], [place] [phone] 09/07/2024 Hakeem Nixon Essential hypertension I10 and [...] Details Provider Name:Hakeem clarke, 02/05/2025 08:00:00 AM, [address] [place] [address], Suite [facility], [place], [place], [phone], Provider Name:Hakeem clarke, 02/26/2025 10:00:00 AM, [address] [place] [address], Suite [facility], [place], [place], [phone], Provider Name:Hakeem clarke, 08/05/2025 08:00:00 AM, [address] [place] [address], Suite [facility], [place], [place], [phone], Provider Name:Hakeem vallesr, 08/12/2025 11:00:00 AM, [address] [place] [address], Suite [facility], [place], [place], [phone], Progress Notes * Her SAMANTHAisraelDOB:0 1955 (69 yo M)Acc No.[id number]:09/07/2024 Progress Note [facility] Provider:?Hakeem Nixon MD :1955???Age:69 Y???Sex:Male Renzo e:09/07/2024 Address:[address] [place], [place] Subjective: * Chief Complaints: * ???1. BUN, CREATININE, POTAS SIUM. * Medical History:? Objective: * Vitals:? Assessment: * Assessment: 1.?Essential hypertension - I10 (Primary)???2.?Type 2 diabetes mellitus without complication, without long-term current use of insulin - E11.9??? Plan: * Treatment: * Procedure Codes:?20604 VENIP UNCT, ROUTINE* * * The named appointment provid er may or may not be the originator of this progress note, and it is not deemed complete until electronically signed by the appointment provider. Sign off status: Pending * Provider:?Hakeem Nixon MD Date:?0 09/07/2024 Generated for Kathy cleveland/Dameon/Niraliitting on:?10/09/2024 09:25 AM EDT
--- OUTSIDE RECORDS SUMMARY | 2024-10-09 09:25 | XMS_ITS ---
Demographics Address [address] [place] [address] Preferred Language en Marital Status Unknown Baptist Affiliation Unknown Race Ethnic Group or Author Organization [facility] Address [address] [place] [phone] Support Name Relationship Address Phone ARLENE MCGEE Emergency Contact [address] [place], [place] [phone] ARELY WILLIS BARRY Guarantor Unknown Care Team Providers Care Food And Beverage Controller Name Role Phone Tiffani JEFFERSON, Hakeem Primary Care Provider Yoseph Gonzales Jr [phone] REASON FOR VISIT pathology Encounters Encounter Location Date Provider Diagnosis [facility] [address] [place] [phone] 10/31/2023 Yoseph Maldonado Jr Plan Of Treatment No Information Progress Notes * ARELY BARRYHERDURANXIMENADOB:0 1955 (68 yo M)Acc No.[id number]:10/31/2023 Patient:?AMBAR SINGH :1955???Age:68 Y???Sex:Male Address:[address] [place] [address] * true * Date:? Generated for Jaroni megha/Dameon/eTransmitting on:?10/09/2024 09:24 AM EDT
--- OUTSIDE RECORDS SUMMARY | 2024-10-09 09:25 | XMS_ITS | Patient Health Record ---
Demographics Address [address] [place] [address] Preferred Language en Marital Status Unknown Presybeterian Affiliation Unknown Race Ethnic Group or Author Organization [facility] Address [address] [place] [address] Support Name Relationship Address Phone ARLENE MCGEE Emergency Contact [address] [place], [place] [phone] WILLIS SINGH Guarantor Unknown Care Team Providers Care Doctor Of Chiropractic Name Role Phone Tiffani JEFFERSON, Hakeem Primary Care Provider Yoseph Gonzales Jr [phone] Allergies No Known Allergies Results Component Value Reference Range Notes Pathology Reviewed date:10/31/2023 09:29:19 AM Interpretation: Performing Lab:[facility], [address] [place] [phone] Notes/Report: Name: Arsenio RamiresTravis Age/Sex: 68/M [facility] 1955 [id number]#: [id number] Attend Dr: Yoseph Maldonado MD Re10/16/23 Status : [facility] Location: [facility] Disch: SPEC : [id number] RECD : 10/17/23 STATUS: SOCO LERNER NUM: [id number] DONYA: 10/16/23-[address] [facility] [address]: Yoseph Maldonado MD ENTERED: 10/17/23- SP [...] Arsenio RamiresTravis Age/Sex: 68/M : 1955 Unit#: [id number] Attend Dr: Yoseph Maldonado MD Re10/16/23 Status : [facility] Location: [place] Disch: SPEC : [id number] RECD : 10/17/23 STATUS: SOCO LERNER NUM: [id number] DONYA: 10/16/23-[address] [facility] [address]: Yoseph Maldonado MD ENTERED: 10/17/23- SP TYPE: Surgical OTHR DR: Hakeem Nixon MD ORDERED: ABRAHAM Stain/9, Asuncion Ricks L4/3 Copies To: Hakeem Nxion MD [address] [place] [address] [address] Yoseph Maldonado MD [address] [place] [address] [address] [place] [address] Signed (si gnature on file) Sarah Salinas [...] Problem Status W/U Status Risk Notes Problem 991092839 Colon cancer screening (Z12.11) Active confirmed Problem 971248343 Encounter for other preprocedural examination (Z01.818) Active confirmed Problem 185739364 Long-term use of aspirin therapy (Z79.82) Active confirmed Encounters Encounter Location Date Provider Diagnosis [facility] Outpatient [address] [place], [place] [phone] 10/16/2023 Yoseph Maldonado Jr Encounter for screening colonoscopy Z12.11 and Colon polyps K63.5 [facility] [address] [facility] [address] [place] [address] 10/31/2023 Yoseph Maldonado Jr Assessments Encounter Date Diagnosis (ICD Code) Assessment Notes Treatment Notes Treatment Clinical Notes Section Notes 10/16/2023 Encounter for screening colonoscopy (ICD-10 - Z12.11) 10/16/2023 Colon polyps (ICD-10 - K63.5) Plan Of Treatment Future Test Test Name Order Date COLONOSCOPY 08/29/2017 COLONOSCOPY 09/30/2023 Insurance Providers Payer Name Payer Address Payer Phone Subscriber Number Group Number Insured Name Patient Relationship to Insured Coverage Start Date Coverage End Date [employer] [address] [place], [place] [id number] WILLIS SINGH Self - patient is the insured Medical (General) History Medical History History ICD Code Hypertension Back pain/DJD Aortic stenosis status post aVR, non-rheumatic mitral stenosis, coronary disease Surgical History Surgery Date(Month/Year) Hernia repair Cardiac catheterization 07/25: Nonobstruc tive coronary disease
--- OUTSIDE RECORDS SUMMARY | 2024-10-09 09:25 | XMS_ITS ---
Demographics Address [address] [place] [address] Preferred Language en Marital Status Unknown Anabaptism Affiliation Unknown Race Ethnic Group or Author Organization [facility] Address [address] [place] [address] Support Name Relationship Address Phone ARLENE MCGEE Emergency Contact [address] [place] [address] WILLIS SINGH Guarantor Unknown Care Team Providers Care Erp Implementation Consultant Name Role Phone Tiffani JEFFERSON, Hakeem Primary [...] Active Encounters Encounter Location Date Provider Diagnosis [facility] Outpatient [address] [place], [place] [phone] 10/16/2023 Yoseph Maldonado Jr Encounter for screening colonoscopy Z12.11 and Colon polyps K63.5 Assessments Encounter Date Diagnosis (ICD Code) Assessment Notes Treatment Notes Treatment Clinical Notes Section Notes 10/16/2023 Encounter for screening colonoscopy (ICD-10 - Z12.11) 10/16/2023 Colon polyps (ICD-10 - K63.5) Plan Of Treatment No Information Progress Notes * VALDEZ SINGH:0 1955 (69 yo M)Acc No.[id number]:10/16/2023 COLON WITH MAC Patient:?AMBAR SINGH Provider:?Yoseph Maldonado MD :1955???Age:68 Y???Sex:Male Renzo e:10/16/2023 Address: [address] [place] [address] Pcp:Hakeem Nixon MD Subjective: * Chief Complaints: [...] - K63.5??? Plan: * Treatment: * Procedure Codes:?16891 LESIO N REMOVAL COLONOSCOPY, 23506 COLONOSCOPY AND BIOPSY, Modifiers: 59 * * The named appointment provid er may or may not be the originator of this progress note, and it is not deemed complete until electronically signed by the appointment provider. Sign off status: Pending * Provider:?Yoseph Maldonado MD Date:?0 10/16/2023 Generated for Kathy cleveland/Dameon/Niraliitting on:?10/09/2024 09:25 AM EDT
--- OUTSIDE RECORDS SUMMARY | 2024-10-09 09:25 | XMS_ITS ---
Demographics Address [address] [place] [address] Mobile Preferred Language en Marital Status unmarried Faith Affiliation Unknown Race Ethnic Group or Author Organization Hakeem Nixon MD Address [address] [place] [phone] Care Team Providers Care Repairer And Checker Name Role Phone Hakeem Nixon Primary Care Provider REASON FOR VISIT RF tramadol Medications Medication SIG (Take, Route, Fr equency, Duration) Notes Start Date End Date Status traMADol HCl 50 MG 1 tablet as needed O rally Once a day for 30 days 09/10/2024 Active Encounters Encounter Location Date Provider Diagnosis Hakeem Nixon MD [address] [place] [phone] 09/10/2024 Hakeem Nixon Acute right-sided low back [...] Provider Name:Hakeem clarke, 02/05/2025 08:00:00 AM, [address], Suite [facility], [place], [place], [phone], Provider Name:Hakeem clarke, 02/26/2025 10:00:00 AM, [address], [address], [place], [place], [phone], Provider Name:Hakeem Blood tricia, 08/05/2025 08:00:00 AM, [address], [address], [place], [phone], Provider Name:Hakeem Blood tricia, 08/12/2025 11:00:00 AM, [address], [address], [place], [phone], Progress Notes * ARELY BARRYRosasDOB:0 1955 (69 yo M)Acc No.[id number]:09/10/2024 Patient:?Kayli SINGH :1955???Age:69 Y???Sex:Male Address:[address] [place] [address] * Refills? Refill traMADol HCl Tablet, 50 MG, Orally, 30 Tablet, 1 tablet as needed, Once a day, 30 days, Refills=2 * true * Date:? Generated for Kathy cleevland/Dameon/Ozielsmitting on:?10/09/2024 09:25 AM EDT
--- OUTSIDE RECORDS SUMMARY | 2024-10-09 09:25 | XMS_ITS | Clinical Summary ---
Demographics Address [address] [place] [address] Work Phone Preferred Language es Marital Status Unknown Scientology Affiliation Unknown Race Other Race Ethnic Group or Author Organization [facility] Address [address] [facility] [address] [place] [address] Care Team Providers Care Two Needle Machine Operator Name Role Phone Unavailable Primary Care Provider [...]
--- OUTSIDE RECORDS SUMMARY | 2024-10-09 09:26 | XMS_ITS ---
Demographics Address [address] [place] [address] Mobile Preferred Language en Marital Status unmarried Holiness Affiliation Unknown Race Ethnic Group or Author Organization Hakeem Nixon MD Address [address] [place], [place] [phone] Care Team Providers Care Vegetable Washing Machine Operator Name Role Phone Hakeem Nixon [...] Location Date Provider Diagnosis Hakeem Nixon MD [address] [place] [address] [place] [phone] 08/10/2024 Hakeem Nixon Type 2 diabetes mellitus [...] R79.9) referral to nephrology/ REFERRAL FAXED TO [facility] FOR SCHEDULING 08/10/2024 Essential hypertension (ICD-10 [...] referral to nephrolo gy/ REFERRAL FAXED TO [facility] FOR SCHEDULING Essential hypertension stable, will cont inue current regiment Colon cancer screening guaiac negative Depression screening negative screen CAD (coronary artery disease) stable, co ntinue current regiment Referrals Referral Date Details 08/10/2024 08/10/2024, ELEVATED BUN, Ajit Delgado Next Appt Details Provider Name:Hakeem clarke, 02/05/2025 08:00:00 AM, [address], [address], [place], [phone], Provider Name:Hakeem vallesr, 02/26/2025 10:00:00 AM, [address], [address], [place], [phone], Provider Name:Hakeem vallesr, 08/05/2025 08:00:00 AM, [address], [address], [place], [phone], Provider Name:Hakeem Blood ier, 08/12/2025 11:00:00 AM, [address], [address], [place], [phone], Progress Notes * Rosas SINGHDOB:0 1955 (69 yo M)Acc No.[id number]:08/10/2024 Progress Notes Patient:?ARELY BARRY song billyo Provider:?Hakeem Nixon MD :1955???Age:69 Y???Sex:Male Renzo e:08/10/2024 Address:[address] [place], [place] Subjective: * Chief Complaints: * ???ANNUAL [...] mg/dL ?Urine Blood Negative Negative - ?Specific [place] - Urine 1.015 1.005-1.025 - ?Urine Protein [...] Notes: referral to nephrology/ REFERRAL FAXED TO [facility] FOR SCHEDULING? Referral To:Ajit Delgado??Nephrology ?Reason:ELEVATED [...] MD Date:?0 08/10/2024 Generated for Kathy cleveland/Dameon/eTrachelsmitting on:?10/09/2024 09:25 AM EDT History and Physical Notes * HPI [...]
== END ==
LOC: HO.CARD 08:52
PROVIDERS: PCP Internal Medicine; Visit Provider Internal Medicine
DX: Z95.3 Presence of xenogenic heart valve (principal)
CPT/HCPCS: 93306; Q9957

== ENCOUNTER → 2024-10-09 08:55 | Outpatient (BNV) | payer MEDICARE, SELFPAY | PROVIDERS: PCP Internal Medicine; Visit Provider Internal Medicine | DX: I42.2 Other hypertrophic cardiomyopathy (principal); I05.1 Rheumatic mitral insufficiency; I05.8 Other rheumatic mitral valve diseases; Z95.3 Presence of xenogenic heart valve | CPT/HCPCS: 93306 ==

== ENCOUNTER 2024-11-25 10:14 | Outpatient (AMB) | payer MEDICARE, SELFPAY ==
--- NOTE | 2024-11-25 10:22 | HO.NEPHOV_ITS ---
Vital Signs 11/25/24 10:25 Height 5 ft 5 in Weight 173 lb 8 oz BMI 28.9 BP 140/70 H Blood Pressure Location Rt brachial Position Sitting Pulse 80 Pulse Source Pulse Oximeter Pulse Oximetry (%) 97 Oxygen Delivery Method Room Air Intake Visit Reasons: CKD-Conf Dairy Associate Required: No Accompanied by: Self / Same As Patient Allergies No Known Allergies Allergy (Verified 11/25/24 10:24) HPI Comments Details: Rosas was seen in follow up for CKD. He has H/O and had undergone bioprosthetic aortic valve replacement. He had undergone cardiac catheterization at that time and had atherosclerotic disease which did not need any CABG. He is not a diabetic but hypertensive. He has micro albuminuria. He is known to have arthritis but denies taking excessive NSAID's. He denies chest pain, edema, SOB, PND, orthopnea, hematuria or orthostatic symptoms. He is on ACEI. He does not have any epistaxis, photosensitivity, skin rashes, joint swelling, H/O CHF, carotid stenosis, PAD or known ALEXIA. His serum creatinine had improved to 1.34. He has not taken his BP medication this AM yet. [facility] Medical History (Updated 10/10/24 @ 20:26 by Gustabo Rodarte MD) Non-rheumatic mitral valve stenosis Aortic stenosis Back pain Essential hypertension Atherosclerotic cardiovascular disease Surgical History H/O colonoscopy Hx of hernia repair History of cardiac catheterization (~08/07/17) History of aortic valve replacement (~09/27/17) Family History Father No problems noted. Mother No problems noted. Social History Alcohol intake: current Alcohol intake frequency: a few times a week Patient Tobacco Use Status: Current everyday Tobacco user Tobacco use type: Cigarette Cigarettes Per Day: 4 Years Smoked: 60 Current occupational status: employed and disabled Current occupation: Rt handed/[employer] Review of Systems Const All systems reviewed & are unremarkable except as noted in HPI and below Physical Exam Vital Signs: Last Vital Signs Pulse 80 11/25/24 10:25 BP 140/70 H 11/25/24 10:25 Pulse Ox 97 11/25/24 10:25 Oxygen Delivery Method Room Air 11/25/24 10:25 BMI result Body Mass Index 28.9 Const General: comfortable and no acute distress Orientation/consciousness: patient oriented x3 HEENT Head: Yes normocephalic Mouth: Normal oral and palatal mucosa present Eyes EOM: EOMs intact bilaterally Neck Neck: Yes supple Resp Auscultation: clear to auscultation bilaterally Cardio Jugular venous distension: no JVD Rate: regular rate GI Palpation (GI): Soft to palpation Auscultation: normal bowel sounds General: Yes no CVA tenderness Back/Spine/Pelvis Back: no CVA tenderness Skin General skin exam: no rashes or lesions noted Neuro General: patient oriented x3 and moves all extremities Extrem General: Yes no pedal edema Results Reviewed Nephrology Results: Hgb 14.2 g/dl (14.0-18.0) 08/04/24 WBC 8.3 X10*3/uL (4.8-10.8) 08/04/24 Plt Count 254 X10*3/uL (160-400) 08/04/24 Sodium 144 mmol/L (135-145) 08/04/24 Potassium 4.5 mmol/L (3.3-5.1) 09/07/24 Chloride 113 mmol/L (96-108) H 08/04/24 Carbon Dioxide 30 mmol/L (22-29) H 08/04/24 BUN 17 mg/dL (9-16) H 09/07/24 Creatinine 1.34 mg/dL (0.5-1.4) 09/07/24 Calcium 9.1 mg/dL (8.4-10.2) 08/04/24 Urine Protein Negative mg/dL (Neg-Trace) 08/04/24 Urine Creatinine 82.52 mg/dL 08/04/24 Assessment & Plan Assessment & Plan (1) CKD stage 3a, GFR 45-59 ml/min: Code(s): N18.31 - Chronic kidney disease, stage 3a Category: Medical (2) Hypertension: Code(s): I10 - Essential (primary) hypertension Category: Medical Qualifiers: Hypertension type: primary hypertension Qualified Code(s): I10 - Essential (primary) hypertension Plan Rosas has CKD due to vascular disease. He has atherosclerotic CAD. I have ordered renal USS and Doppler of renal arteries . He is tolerating ACEI. I shall consider initiating him on SGLT2 i after reviewing all the data. He maintains good hydration and avoids NSAID's. Further management is pending evolving data. Answered all questions. Orders: Orders Creatinine 4 Months I10 - Essential (primary) hypertension, N18.31 - Chronic kidney disease, stage 3a Blood Urea Nitrogen 4 Months I10 - Essential (primary) hypertension, N18.31 - Chronic kidney disease, stage 3a Electrolytes 4 Months I10 - Essential (primary) hypertension, N18.31 - Chronic kidney disease, stage 3a Coding Level of Care Code Est Pt Level 4 (09784) Diagnoses CKD stage 3a, GFR 45-59 ml/min N18.31 Primary hypertension I10 Hypertension type: primary hypertension
[2024-11-25 10:25] VITALS: BP 140/70; PULSE 80; O2SAT 97; BMI 28.9
--- OUTSIDE RECORDS SUMMARY | 2024-11-25 11:47 | XMS_ITS ---
Demographics Address [address] [place] [address] Preferred Language en Marital Status Unknown Orthodoxy Affiliation Unknown Race Ethnic Group or Author Organization [facility] Address [address] [place] [phone] Support Name Relationship Address Phone ARLENE MCGEE Emergency Contact [address] [place], [place] [id number] ARELY WILLIS BARRY Guarantor Unknown Care Team Providers Care Risk Management Director Name Role Phone Tiffani JEFFERSON, Hakeem Primary Care Provider Yoseph Gonzales Jr REASON FOR VISIT pathology Encounters Encounter Location Date Provider Diagnosis [facility] [address] [place] [phone] 10/31/2023 Yoseph Maldonado Jr Plan Of Treatment No Information Progress Notes * ARELY BARRY JADXIMENADOB:0 1955 (68 yo M)Acc No.[id number]:10/31/2023 Patient:?AMBAR SINGH :1955???Age:68 Y???Sex:Male Address:[address] [place] [address] * true * Date:? Generated for Kathy cleveland/Dameon/eTransmitting on:?11/25/2024 11:47 AM EDT
--- OUTSIDE RECORDS SUMMARY | 2024-11-25 11:47 | XMS_ITS ---
Demographics Address [address] [place] [address] Preferred Language en Marital Status Unknown Samaritan Affiliation Unknown Race Ethnic Group or Author Organization [facility] Address [address] [place] [address] Support Name Relationship Address Phone ARLENE MCGEE Emergency Contact [address] [place] [address] WILLIS SINGH Guarantor Unknown Care Team Providers Care Email Developer Name Role Phone Tiffani JEFFERSON, Hakeem Primary [...] Problem Status W/U Status Risk Notes Problem [id number] Encounter for other preprocedural examination (Z01.818) Active confirmed Problem 049968183 Long-term use of aspirin therapy (Z79.82) Active confirmed Vital Signs Temperature 97.5 degrees Fahrenheit 09/30/19 24 Blood pressure systolic 000 mm Hg 09/30/19 24 Blood pressure diastolic 00 mm Hg 024 Height 65 in 09/30/2023 Weight 165 lbs 09/30/2023 BMI 27.45 kg/m2 09/30/2023 Encounters Encounter Location Date Provider Diagnosis [facility] [address] [place] [address] 09/30/2023 Yoseph Maldonado Jr Colon cancer screening [...] * SHELLI SINGHB:0 1955 (68 yo M)Acc No.[id number]:09/30/2023 Progress Notes Patient:?AMBAR SINGH Provider:?Yoseph Maldonado MD :1955???Age:68 Y???Sex:Male Renzo e:09/30/2023 Address: [address] [place] [address] Pcp:Hakeem Nixon MD Subjective: * Chief Complaints: [...] MD Date:?0 09/30/2023 Generated for Kathy cleveland/Dameon/eTmarilynnitting on:?11/25/2024 11:47 AM EDT History and Physical Notes * [...]
--- OUTSIDE RECORDS SUMMARY | 2024-11-25 11:48 | XMS_ITS ---
Demographics Address [address] [place] [address] Mobile Preferred Language en Marital Status unmarried Hoahaoism Affiliation Unknown Race Ethnic Group or Author Organization Hakeem Nixon MD Address [address] [place], [place] [phone] Care Team Providers Care Head Boys Tennis Coach Name Role Phone Hakeem Nixon Primary Care Provider Results Component Value Reference Range Notes Potassium Reviewed date:09/07/2024 11:04:39 AM Interpretation: Performing Lab:[facility], [address] [place] [phone] Notes/Report: Potassium 4.5 3.3-5.1 mmol/L Blood Urea Nitrogen Reviewed date:09/07/2024 12:33:18 PM Interpretation: Performing Lab:[facility], [address] [place] [phone] Notes/Report: Blood Urea Nitrogen 17 9-16 mg/dL Creatinine Reviewed date:09/07/2024 12:30:10 PM Interpretation: Performing Lab:[facility], [address] [place] [phone] Notes/Report: Creatinine 1.34 0.5-1.4 mg/dL Estimated Glomerular Filt Rate 53 Chronic Kidney Disease: Estimated GFR < 60 mL/min/1.73m2 Severe Kidney Disease: Estimated GFR < 15 mL/min/1.73m2 REASON FOR VISIT BUN, CREATININE, POTASSIUM Encounters Encounter Location Date Provider Diagnosis Hakeem Nixon MD [address] [place], [place] [phone] 09/07/2024 Hakeem Nixon Essential hypertension I10 and [...] Details Provider Name:Hakeem clarke, 02/05/2025 08:00:00 AM, [address] [place] [address], [address] [facility], [place], [place], [phone], Provider Name:Hakeem clarke, 02/26/2025 10:00:00 AM, [address] [place] [address], [address] [facility], [place], [place], [phone], Provider Name:Hakeem clarke, 08/05/2025 08:00:00 AM, [address] [place] [address], [address] [facility], [place], [place], [phone], Provider Name:Hakeem vallesr, 08/12/2025 11:00:00 AM, [address] [place] [address], [address] [facility], [place], [place], [phone], Progress Notes * Her SAMANTHAisraelDOB:0 1955 (69 yo M)Acc No.[id number]:09/07/2024 Progress Note Patient:?[facility] Provider:?Hakeem Nixon MD :1955???Age:69 Y???Sex:Male Renzo e:09/07/2024 Address:[address] [place], [phone] Subjective: * Chief Complaints: * ???1. BUN, CREATININE, POTAS SIUM. * Medical History:? Objective: * Vitals:? Assessment: * Assessment: 1.?Essential hypertension - I10 (Primary)???2.?Type 2 diabetes mellitus without complication, without long-term current use of insulin - E11.9??? Plan: * Treatment: * Procedure Codes:?98318 VENIP UNCT, ROUTINE* * * The named appointment provid er may or may not be the originator of this progress note, and it is not deemed complete until electronically signed by the appointment provider. Sign off status: Pending * Provider:?Hakeem Nixon MD Date:?0 09/07/2024 Generated for Kathy cleveland/Dameon/Niraliitting on:?11/25/2024 11:48 AM EDT
--- OUTSIDE RECORDS SUMMARY | 2024-11-25 11:48 | XMS_ITS ---
Demographics Address [address] [place] [address] Mobile Preferred Language en Marital Status unmarried Gnosticism Affiliation Unknown Race Ethnic Group or Author Organization Hakeem Nixon MD Address [address] [place] [phone] Care Team Providers Care Tree Cutter Name Role Phone Hakeem Nixon Primary Care Provider REASON FOR VISIT RF tramadol Medications Medication SIG (Take, Route, Fr equency, Duration) Notes Start Date End Date Status traMADol HCl 50 MG 1 tablet as needed O rally Once a day for 30 days 09/10/2024 Active Encounters Encounter Location Date Provider Diagnosis Hakeem Nixon MD [address] [place] [phone] 09/10/2024 Hakeem Nixon Acute right-sided low back [...] Provider Name:Hakeem clarke, 02/05/2025 08:00:00 AM, [address], [address] [facility], [place], [place], [phone], Provider Name:Hakeem clarke, 02/26/2025 10:00:00 AM, [address], [address], [place], [place], [phone], Provider Name:Hakeem Blood tricia, 08/05/2025 08:00:00 AM, [address], [address], [place], [phone], Provider Name:Hakeem Blood tricia, 08/12/2025 11:00:00 AM, [address], [address], [place], [phone], Progress Notes * ARELY BARRY israelDOB:0 1955 (69 yo M)Acc No.[id number]:09/10/2024 Patient:?Kayli SINGH :1955???Age:69 Y???Sex:Male Address:[address] [place] [address] * Refills? Refill traMADol HCl Tablet, 50 MG, Orally, 30 Tablet, 1 tablet as needed, Once a day, 30 days, Refills=2 * true * Date:? Generated for Kathy cleveland/Dameon/Ozielsmitting on:?11/25/2024 11:48 AM EDT
--- OUTSIDE RECORDS SUMMARY | 2024-11-25 11:48 | XMS_ITS | Clinical Summary ---
Demographics Address [address] [place] [address] Work Phone Preferred Language es Marital Status Unknown Sabianist Affiliation Unknown Race Other Race Ethnic Group Unknown Author Organization [employer] Address [address] [facility] [address] [place] [address] Care Team Providers Care Network Engineering Advisor Name Role Phone Unavailable Primary Care Provider [...] patient's age to complete this topic Meningococcal B Vaccine Aged Out No l onger eligible based on patient's age to complete [...]
--- OUTSIDE RECORDS SUMMARY | 2024-11-25 11:48 | XMS_ITS ---
Demographics Address [address] [place] [address] Preferred Language en Marital Status Unknown Buddhist Affiliation Unknown Race Ethnic Group or Author Organization [facility] Address [address] [place] [address] Support Name Relationship Address Phone ARLENE MCGEE Emergency Contact [address] [place] [address] WILLIS SINGH Guarantor Unknown [phone] Care Team Providers Care Reservations And Ticketing Agent Name Role Phone Tiffani JEFFERSON, Hakeem Primary [...] Active Encounters Encounter Location Date Provider Diagnosis [facility] [address] [place], [place] [phone] 10/16/2023 Yoseph Maldonado Jr Encounter for screening colonoscopy Z12.11 and Colon polyps K63.5 Assessments Encounter Date Diagnosis (ICD Code) Assessment Notes Treatment Notes Treatment Clinical Notes Section Notes 10/16/2023 Encounter for screening colonoscopy (ICD-10 - Z12.11) 10/16/2023 Colon polyps (ICD-10 - K63.5) Plan Of Treatment No Information Progress Notes * VALDEZ SINGH:0 1955 (69 yo M)Acc No.[id number]:10/16/2023 COLON WITH MAC Patient:?AMBAR SINGH Provider:?Yoseph Maldonado MD :1955???Age:68 Y???Sex:Male Renzo e:10/16/2023 Address: [address] [place] [address] Pcp:Hakeem Nixon MD Subjective: * Chief Complaints: [...] - K63.5??? Plan: * Treatment: * Procedure Codes:?93148 LESIO N REMOVAL COLONOSCOPY, 23056 COLONOSCOPY AND BIOPSY, Modifiers: 59 * * The named appointment provid er may or may not be the originator of this progress note, and it is not deemed complete until electronically signed by the appointment provider. Sign off status: Pending * Provider:?Yoseph Maldonado MD Date:?0 10/16/2023 Generated for Kathy cleveland/Dameon/Niraliitting on:?11/25/2024 11:48 AM EDT
--- OUTSIDE RECORDS SUMMARY | 2024-11-25 11:48 | XMS_ITS | Patient Health Record ---
Demographics Address [address] [place] [address] Preferred Language en Marital Status Unknown Restorationism Affiliation Unknown Race Ethnic Group or Author Organization [facility] Address [address] [place] [address] Support Name Relationship Address Phone ARLENE MCGEE Emergency Contact [address] [place] [address] ARELY BARRY WILLIS Guarantor Unknown [phone] Care Team Providers Care Automatic Equipment Technician Name Role Phone Hakeem Nixon MD Primary Care Provider Yoseph Gonzales Jr Unavailable Allergies No Known Allergies Reason For Referral No Information Medications Medication [...] Problem Status W/U Status Risk Notes Problem [id number] Colon cancer screening (Z12.11) Active confirmed Problem 010669109 Encounter for other preprocedural examination (Z01.818) Active confirmed Problem 982829351 Long-term use of aspirin therapy (Z79.82) Active confirmed Plan Of Treatment Future Test Test Name Order Date COLONOSCOPY 08/29/2017 COLONOSCOPY 09/30/2023 Insurance Providers Payer Name Payer Address Payer Phone Subscriber Number Group Number Insured Name Patient Relationship to Insured Coverage Start Date Coverage End Date [facility] [address] [place], [place] [id number] [id number] WILLIS SINGH Self - patient is the insured Medical (General) History Medical History History ICD Code Hypertension Back pain/DJD Aortic stenosis status post aVR, non-rheumatic mitral stenosis, coronary disease Surgical History Surgery Date(Month/Year) Hernia repair Cardiac catheterization 07/25: Nonobstruc tive coronary disease
--- OUTSIDE RECORDS SUMMARY | 2024-11-25 11:48 | XMS_ITS | Patient Health Record ---
Demographics Address [address] [place] [address] Mobile Preferred Language en Marital Status unmarried Oriental Orthodox Affiliation Unknown Race Ethnic Group or Author Organization Hakeem Nixon MD Address [address] [place], [place] [phone] Care Team Providers Care Diplomatic Interpreter Name Role Phone Hakeem Nixon Primary Care Provider Allergies No Known Allergies Results Component Value Reference Range Notes Liver Panel Reviewed date:01/03/2024 12:21:33 PM Interpretation: Performing Lab:[address] [phone] Notes/Report: Bilirubin Total 0.5 0.0-1.0 mg/dL Bilirubin Direct 0.2 0.0-0.5 mg/dL Aspartate Amino Transferase 20 5-37 U/L Alanine Aminotransferase 15 0-40 U/L Total Protein 7.5 6.5-8.0 g/dL Albumin Level 4.4 3.5-5.0 g/dL Alkaline Phosphatase 127 39-117 U/L Glucose Fasting Reviewed date:01/03/2024 12:22:11 PM Interpretation: Performing Lab:[address] [phone] Notes/Report: Glucose Fasting 149 60-99 mg/dL A fasting glucose of 126 mg/dl or greater on more than one occasion is considered diagnostic of diabetes. Lipid Panel with Reflex Reviewed date:01/03/2024 12:25:15 PM Interpretation: Performing Lab:[facility], [address] [place] [phone] Notes/Report: Triglycerides 111 <150 mg/dL Desirable Triglyceride: less than 150 mg/dL Borderline High Triglyceride 150-199 mg/dL High Triglyceride: 200-499 mg/dL Very High Triglyceride: greater than or equal to 5OO mg/dL Cholesterol 118 <200 mg/dL Desirable Cholesterol: less than 200 mg/dL Borderline High Cholesterol: 200-239 mg/dL High Cholesterol: greater than 239 mg/dL LDL Cholesterol Calculated 54 <100 mg/dL Desirable LDL: less than 100 mg/dL Near Optimal/Above Optimal LDL: 110-129 mg/dL Borderline High LDL: 130-159 mg/dL High LDL: 160-189 mg/dL Very High LDL: greater than or equal to 190 mg/dL HDL Cholesterol 42 >40 mg/dL Desirable HDL: greater than 40 mg/dL Note: This HDL assay may give artificially low results in patients with liver disease. Hemoglobin A1c Reviewed date:01/03/2024 12:21:41 PM Interpretation: Performing Lab:[facility], [address] [place] [phone] Notes/Report: Hemoglobin A1c % 6.6 <6.0 % Hemoglobin A1C Reference Range Adults: 4.8 - 6.0 % Non diabetic: < 6.0 % Goal: < 7.0 % Additional Action Suggested: > 8.0 % Note: Hemoglobin A1c results are invalid for patients with abnormal amounts of HbF. Blood transfusions may impact the HbA1c concentration in the patient sample. Estimated Average Glucose 143 eAG = Estimated average glucose which is %A1C expressed as average glucose, using the formula of the D6J-Jktnktf Average Glucose study (ADAG), Diabetes Care, Vol.31,#8, Feb. 2007 Complete Blood Count Auto Di ff Reviewed date:08/04/2024 01:13:03 PM Interpretation: Performing Lab:[facility], [address] [place] [phone] Notes/Report: White Blood Count 8.3 4.8-10.8 X10*3/uL [...] NRBC Abs Auto 0.000 0.0-0.012 X10*3/uL Comprehensive [place]. Panel Fa st Reviewed date:08/10/2024 02:18:47 PM Interpretation:08-10-24 Performing Lab:[facility], [address] [place] [phone] Notes/Report: Sodium 144 135-145 mmol/L Potassium 5.2 [...] Panel Reviewed date:08/04/2024 12:24:02 PM Interpretation: Performing Lab:[address] [phone] Notes/Report: Triglycerides 107 <150 mg/dL Desirable Triglyceride: [...] (Free>4and<10) Reviewed date:08/04/2024 12:40:01 PM Interpretation: Performing Lab:[address] [phone] Notes/Report: PSA,Total (Free>4and<10) 0.77 0.00-4.00 ng/mL A [...] between 4.0 and 10.0 ng/mL. PSA methodology: Resverlogixnity i Chemiluminescent Microparticle Immunoassay (CMIA) Microalbumin, Random Reviewed date:08/04/2024 01:00:09 PM Interpretation: Performing Lab:[address] [phone] Notes/Report: Creatinine Urine 82.52 Microalbumin Urine 28.0 Microalbum/Creatinine Ratio Ur 33.9 <30 ug/mg cr Albumin/Creatinine Ratio Reference Ranges: Normal: < 30 ug/mg creatinine Microalbuminuria: 30 - 300 ug/mg creatinine Clinical Albuminuria: > 300 ug/mg creatinine Hemoglobin A1c Reviewed date:08/04/2024 12:30:48 PM Interpretation: Performing Lab:[address] [phone] Notes/Report: Hemoglobin A1c % 6.8 <6.0 % [...] average glucose, using the formula of the J7V-Puyctna Average Glucose study (ADAG), Diabetes Care, Vol.31,#8, Feb. 2007 UA ClnCatch+Micro w/rflx Cul t Reviewed date:08/04/2024 01:26:51 PM Interpretation: Performing Lab:[address] [phone] Notes/Report: Urine, Clean Catch Color Urine Yellow Appearance Urine Clear PH 6.5 5.0-9.0 Glucose Urine UA Negative Negative mg/dL Urine Blood Negative Negative Specific Inman - Urine 1.015 1.005-1.025 Urine Protein Negative Neg-Trace mg/dL Urine Ketones Negative Negative mg/dL Nitrite Urine Negative Negative Leukocyte Esterase Urine Negative Negative RBC Urine 0-2 0-2 /HPF WBC Urine 0-5 0-5 /HPF Squamous Epithelial Cell Urine 0-2 0-2 /HPF Bacteria Urine None Seen None Seen Hyaline Casts Urine 0-2 0-2 /LPF Potassium Reviewed date:09/07/2024 11:04:39 AM Interpretation: Performing Lab:[facility], [address] [place] [phone] Notes/Report: Potassium 4.5 3.3-5.1 mmol/L Blood Urea Nitrogen Reviewed date:09/07/2024 12:33:18 PM Interpretation: Performing Lab:[facility], [address] [place] [phone] Notes/Report: Blood Urea Nitrogen 17 9-16 mg/dL Creatinine Reviewed date:09/07/2024 12:30:10 PM Interpretation: Performing Lab:[facility], [address] [place] [phone] Notes/Report: Creatinine 1.34 0.5-1.4 mg/dL Estimated Glomerular Filt Rate 53 Chronic Kidney Disease: Estimated GFR < 60 mL/min/1.73m2 Severe Kidney Disease: Estimated GFR < 15 mL/min/1.73m2 Hold Gold Reviewed date:01/03/2024 12:15:19 PM Interpretation: Performing Lab:[facility], [address] [place] [phone] Notes/Report: Chikis Gold See Note Specimen held untested for 24 hours; Call to request Chemistry testing. Reason For Referral Reason ELEVATED BUN Diagnosis [...] Referral Priority Routine Referral Appointment Date 08/28/2024 Medications Medication SIG (Take, Route, Frequency, Duration) Notes Start Date End Date Status Sildenafil Citrate 100 MG 1 tablet as ne eded Orally Once a day for 30 day(s) 08/10/2024 Active traMADol HCl 50 MG TAKE 1 TABLET BY DELFINA TH EVERY DAY NEEDED FOR 30 DAYS ORALLY ONCE A DAY Orally Once a day for 30 days 05/12/2024 Active Pantoprazole Sodium 40 MG 1 tablet Orall y Once a day Not-Taking traMADol HCl 50 MG 1 tablet as needed Orally Once a day for 30 days 09/10/2024 Active Aspirin Low Dose 81 MG TAKE 1 TABLET BY MOUTH EVERY DAY Orally Once a day for 90 days Active Lisinopril 40 MG TAKE 1 TABLET BY DELFINA TH EVERY DAY Active Atorvastatin Calcium 40 MG TAKE 1 TABLET BY MOUTH EVERY DAY Orally Once a day for 30 days Active Metoprolol Tartrate 50 MG TAKE 1 TABLET BY MOUTH TWICE A DAY WITH FOOD Active oxyCODONE HCl 5 MG 1 tablet as needed Orally every 6 hrs Not-Taking Sildenafil Citrate 100 MG 1 tablet as ne eded Orally Once a day 03/06/2022 Active Immunizations Vaccine Route Administration Date Status Comme nts Flu Vaccine IM Intramuscular 07/05/2014 Administered zFluzone Quadrivalent IM Intramuscular 08/15/2015 Administ ered Fluarix Quadrivalent IM Intramuscular 04/30/2017 Administe red PPSV23 (Pnemovax) IM Intramuscular 05/23/2017 Administered Fluarix Quadrivalent IM Intramuscular 05/12/2018 Administe red Fluarix Quadrivalent Unknown 03/16/2019 Administered CV S Fluarix Quadrivalent Unknown 04/11/2020 Administered CV S SARS-COV-2 Moderna Unknown 09/30/2020 Administered SARS-COV-2 Moderna Unknown 12/27/2020 Administered Influenza High Dose IM Intramuscular 06/20/2021 Administer ed SARS-COV-2 Moderna Unknown 06/06/2021 Administered Fluarix Quadrivalent IM Intramuscular 06/28/2022 Administe red Fluarix Quadrivalent Unknown 03/30/2023 Administered CV S SARS-COV-2 Moderna 2022 Unknown 04/11/2024 Administered [facility] Influenza High Dose Unknown 05/04/2024 Administered [facility] Shingrix Unknown 05/04/2024 Administered [facility] Prevnar 13 Unknown 05/12/2019 Refused Social History Tobacco Use: Social History Observation [...] user Light cigarett e smoker (1-9 cigs/day) Problems Problem Type SNOMED Code ICD Code Onset Dates Problem Status W/U Status Risk Notes Problem Erectile dysfunction (299101492) Erectile dysfunction (N52.9) Active confirmed Problem 9066654 Arthritis (M19.90) Active confirmed Problem 590012729 Tubular adenoma of colon (D12.6) Active confirmed Problem 18321262 Essential hypertension (I10) Active confirmed Problem 27712774 Heart murmur (R01.1) Active confirmed Problem 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) Peyronie disease (N48.6) Active confirmed Problem Current smoker (57792752) Current smoker (F17.200) Active confirmed Problem 62238296 Sciatica of left side (M54.32) Active confirmed Problem 33472464 Aortic valve stenosis, unspecified etiology (I35.0) Active confirmed Problem Coronary artery disease (47310678) CAD (coronary artery disease) (I25.10) Active confirmed Problem Sciatica (89421151) Acute right-sided low back pain with right-sided sciatica (M54.41) Active confirmed Problem 9323666 Peyronie's disea se (N48.6) Active confirmed Problem 638988232 Type 2 diabetes mellitus without complication, without long-term current use of insulin (E11.9) Active confirmed Problem 538717 Valvular heart disease (I38) Active confirmed Problem 426822810 Anticoagulation adequate (Z79.01) Active confirmed Problem 0002117551691 S/P AVR (aortic valve replacement) (Z95.2) Active confirmed Vital Signs Blood pressure diastolic 60 mm Hg 08/10/2024 meri ght is up 12 pounds since 07-05-23 Height 65 in 08/10/2024 weight is up 12 pounds since 07-05-23 Blood pressure systolic 112 mm Hg 08/10/2024 weig ht is up 12 pounds since 07-05-23 Weight 175 lbs 08/10/2024 weight is up 12 pounds since 07-05-23 BMI 29.12 kg/m2 08/10/2024 weight is up 12 pounds since 07-05-23 Encounters Encounter Location Date Provider Diagnosis Hakeem Nixon MD [address] [place] [id number] 01/03/2024 Hakeem Nixon Type 2 diabetes mellitus without complication, without long-term current use of insulin E11.9 and CAD (coronary artery disease) I25.10 Hakeem Nixon MD [address] [place] [id number] 08/04/2024 Hakeem Nixon Blood tests for routine general physical examination Z00.00 ; Essential hypertension I10 and Type 2 diabetes mellitus without complication, without long-term current use of insulin E11.9 Hakeem Nixon MD [address] [place] [id number] 09/07/2024 Hakeem Nixon Essential hypertension I10 and Type 2 diabetes mellitus without complication, without long-term current use of insulin E11.9 Hakeem Nixon MD [address] [place] [id number] 08/10/2024 Hakeem Nixon Type 2 diabetes mellitus without complication, without long-term current use of insulin E11.9 ; Erectile dysfunction N52.9 ; Acute right-sided low back pain with right-sided sciatica M54.41 ; Elevated BUN R79.9 ; Essential hypertension I10 ; Colon cancer screening Z12.11 ; Depression screening Z13.31 and CAD (coronary artery disease) I25.10 Hakeem Nixon MD [address] [place] [id number] 12/30/2023 Hakeem Nixon MD [address] [place] [id number] 01/27/2024 Hakeem Nixon MD [address] [place] [id number] 02/20/2024 Hakeem Nixon MD [address] [place] [id number] 04/02/2024 Hakeem Nixon MD [address] [place] [id number] 05/12/2024 Hakeem Nixon MD [address] [place] [id number] 09/10/2024 Hakeem Nixon Acute right-sided lo w back pain with right-sided sciatica M54.41 Hakeem Nixon MD [address] [place], [place] [id number] 10/27/2024 Hakeem Nixon Acute right-sided lo w back pain with right-sided sciatica M54.41 and CAD (coronary artery disease) I25.10 Assessments Encounter Date Diagnosis (ICD Code) Assessment Notes Treatment Notes Treatment Clinical Notes Section Notes 01/03/2024 Type 2 diabetes mellitus without complication, without long-term current use of insulin (ICD-10 - E11.9) 01/03/2024 CAD (coronary artery disease) (ICD-10 - I25.10) 08/04/2024 Blood tests for routine general physical examination (ICD-10 - Z00.00) 09/07/2024 Essential hypertension (ICD-10 - I10) 08/10/2024 Type 2 diabetes mellitus without complication, without long-term current use of insulin (ICD-10 - E11.9) doing well , will coniotnue current regiment 08/10/2024 Erectile dysfunction (ICD-10 - N52.9) stable, will continue current regiment 09/10/2024 Acute right-sided low back pain with right-sided sciatica (ICD-10 - M54.41) 10/27/2024 Acute right-sided low back pain with right-sided sciatica (ICD-10 - M54.41) 08/04/2024 Essential hypertension (ICD-10 - I10) 09/07/2024 Type 2 diabetes mellitus without complication, without long-term current use of insulin (ICD-10 - E11.9) 08/10/2024 Acute right-sided low back pain with right-sided sciatica (ICD-10 - M54.41) 10/27/2024 CAD (coronary artery disease) (ICD-10 - I25.10) 08/04/2024 Type 2 diabetes mellitus without complication, without long-term current use of insulin (ICD-10 - E11.9) 08/10/2024 Elevated BUN (ICD-10 - R79.9) referral to nephrology/ REFERRAL FAXED TO [facility] FOR SCHEDULING 08/10/2024 Essential hypertension (ICD-10 - I10) stable, will continue current regiment 08/10/2024 Colon cancer screening (ICD-10 - Z12.11) guaiac negative 08/10/2024 Depression screening (ICD-10 - Z13.31) negative screen 08/10/2024 CAD (coronary artery disease) (ICD-10 - I25.10) stable, continue current regiment Plan Of Treatment Next Appt Details Provider Name:Hakeem Blood ier, 02/05/2025 08:00:00 AM, [address] [place] [address], [address] [facility], [place], [place], [phone], Provider Name:Hakeem Blood ier, 02/26/2025 10:00:00 AM, [address] [place] [address], [address] [facility], [place], [place], [phone], Provider Name:Hakeem Blood ier, 08/05/2025 08:00:00 AM, [address] [place] [address], [address] [facility], [place], [place], [phone], Provider Name:Hakeem Blood ier, 08/12/2025 11:00:00 AM, [address] [place] [address], [place] [address], [place], [place], [phone], Insurance Providers Payer Name Payer Address Payer Phone Subscriber Number Group Number Insured Name Patient Relationship to Insured Coverage Start Date Coverage End Date [employer] MED[employer] E [address] [place], [place] [id number] Arsenio Ramires, Rosas Self - patient is the insured MEDICARE [facility] [address] [place] [address] [id number] Rosas Kirkland Self - patient is the insured Medical (General) History Medical History History ICD Code colonoscopy 12/2009 w/Dr. Choudhary fford - repeat 5 years; colonoscopy done on 04/04/18 due in 5 years NEEDS YEARLY ECHO - done 06/26/17, done 02/2020
--- OUTSIDE RECORDS SUMMARY | 2024-11-25 11:49 | XMS_ITS ---
Demographics Address [address] [place] [address] Mobile Preferred Language en Marital Status unmarried Congregational Affiliation Unknown Race Ethnic Group or Author Organization Hakeem Nixon MD Address [address] [place] [phone] Care Team Providers Care Rn Infusion Name Role Phone Hakeem Nixon Primary Care [...] Hakeem Nixon MD [address] [place] [id number] 10/27/2024 Hakeem Nixon Acute right-sided low back [...] Name:Hakeem Blood ier, 02/05/2025 08:00:00 AM, [address], [address], [place], [phone], Provider Name:Hakeem Blood ier, 02/26/2025 10:00:00 AM, [address], [address], [place], [phone], Provider Name:Hakeem Blood ier, 08/05/2025 08:00:00 AM, [address], [address], [place], [phone], Provider Name:Hakeem Blood ier, 08/12/2025 11:00:00 AM, [address], [address], [place], [phone], Progress Notes * Rosas SINGHDOB:0 1955 (69 yo M)Acc No.[id number]:10/27/2024 Patient:?Her SAMANTHAsong wolf :1955???Age:69 Y???Sex:Male Address:[address] [place] [address] * Refills? Refill traMADol HCl Tablet, 50 MG, Orally, 30 Tablet, 1 tablet as needed, Once a day, 30 days, Refills=2 Refill Atorvastatin Calcium Tablet, 40 MG, Orally, 30, TAKE 1 TABLET BY MOUTH EVERY DAY, Once a day, 30 days, Refills=3 * true * Date:? Generated for Kathy cleveland/Dameon/eTransmitting on:?11/25/2024 11:48 AM EDT
== END 2024-11-25 10:48 | disposition home or self-care (01) ==
LOC: HO.HKA 10:15
PROVIDERS: PCP Internal Medicine; Visit Provider Internal Medicine Nephrology
DX: N18.31 Chronic kidney disease, stage 3a (principal); I10 Essential (primary) hypertension
CPT/HCPCS: 99214

== ENCOUNTER 2024-11-25 11:12 | Outpatient (REF) | payer MEDICARE, SELFPAY ==
[2024-11-25 11:59] LABS: Appearance Urine Clear; Color Urine Yellow; Glucose Urine UA Negative (Negative); Leukocyte Esterase Urine Negative (Negative); Nitrite Urine Negative (Negative); PH 5.5 (5.0-9.0); Specific Gravity - Urine 1.025 (1.005-1.025); UMIC TRIGGER UA YES; Urine Blood Negative (Negative); Urine Ketones Trace mg/dL (Negative); Urine Protein 100 (2+) mg/dL (Neg-Trace)
[2024-11-25 12:01] LABS: Bacteria Urine None Seen (None Seen); RBC Urine 0-2 /HPF (0-2); Squamous Epithelial Cell Urine 0-2 /HPF (0-2); WBC Urine 0-5 /HPF (0-5)
[2024-11-25 12:07] LABS: Estimated Average Glucose 146 mg/dL; Hemoglobin A1C 173.1517 umol/L; Hemoglobin A1c % 6.7 % (<6.0); Total Hemoglobin (HGBA1C) 3500.4787 umol/L
--- OUTSIDE RECORDS SUMMARY | 2024-11-25 12:32 | XMS_ITS | Clinical Summary ---
Demographics Address [address] [place] [address] Work Phone Preferred Language es Marital Status Unknown Tenriism Affiliation Unknown Race Other Race Ethnic Group Unknown Author Organization [facility] Address [address] [facility] [address] [place] [address] Care Team Providers Care Reference Investigator Name Role Phone Unavailable Primary Care Provider [...]
[2024-11-25 13:14] LABS: Parathyroid Hormone Intact 122.5 pg/mL (8.7-77.1); Total Protein Urine Random 90 mg/dL (<12)
[2024-11-25 15:00] LABS: Anion Gap 12 (12-20); Calcium 9.5 mg/dL (8.4-10.2); Carbon Dioxide 29 mmol/L (22-29); Chloride 106 mmol/L (96-108); Estimated Glomerular Filt Rate 47; Potassium 4.6 mmol/L (3.3-5.1); Sodium 142 mmol/L (135-145)
[2024-11-25 15:13] LABS: Protein/Creatinine Ratio, Ur 0.33 (<0.2)
[2024-11-25 15:19] LABS: Vitamin D 25-OH Total 16.1 ng/mL (>30)
[2024-11-25 16:00] LABS: Blood Urea Nitrogen 19 mg/dL (9-16)
== END 2024-11-25 11:13 | disposition home or self-care (01) ==
LOC: HO.10HDL 11:12
PROVIDERS: Visit Provider Internal Medicine Nephrology
DX: N18.31 Chronic kidney disease, stage 3a (principal); I10 Essential (primary) hypertension
CPT/HCPCS: 36415; 80051; 81001; 82306; 82310; 82565; 82570; 83036; 83970; 84100; 84156; 84520; 99212

== ENCOUNTER 2025-01-06 08:20 | Outpatient (REF) | payer MEDICARE, SELFPAY ==
--- NOTE | ~2025-01-06 | US_ITS ---
EXAMINATION: Ultrasound renal, bilaterally. Ultrasound renal Doppler. CLINICAL INFORMATION: CAD stage IIIa. Hypertension. COMPARISON: No priors. TECHNIQUE: Real-time ultrasound kidneys using grayscale and color Doppler technique. Spectral color Doppler analysis of the main renal arteries and the abdominal aorta at the origin of the main renal arteries. FINDINGS: Right kidney: 10 x 6 x 4 cm. Normal echotexture. Normal renal cortical thickness. No hydronephrosis. There is a 2.3 cm exophytic and thin septated anechoic lesion in the anterior midportion/upper pole junction. No flow on color Doppler interrogation. Left kidney: 10 x 5 x 4 cm. Normal echotexture. Normal renal cortical thickness. No hydronephrosis. There are a 0.5 and 0.6 cm exophytic anechoic lesions in the anterior midportion without flow on color Doppler interrogation. SPECTRAL DOPPLER ANALYSIS: RIGHT KIDNEY: -Peak systolic velocity in the proximal right renal artery = 115 cm/s. Normal waveforms. -Peak systolic velocity in the mid right renal artery = 109 cm/s. Normal waveforms. -Peak systolic velocity in the distal right renal artery = 79 cm/s. Normal waveforms. -Patent right renal vein. -Upper pole interlobar artery resistive index of 0.7. -Midpole interlobar artery resistive index of 0.7. -Lower pole interlobar artery resistive index of 0.7. RAR right = cannot be calculated secondary to peak systolic velocities in the mid aorta. LEFT KIDNEY: -Peak systolic velocity in the proximal left renal artery = 137 cm/s. Normal waveforms. -Peak systolic velocity in the mid left renal artery = 136 cm/s. Normal waveforms. -Peak systolic velocity in the distal left renal artery = 47 cm/s. Normal waveforms. -Patent left renal vein. -Upper pole interlobar artery resistive index of 0.6. -Mid pole interlobar artery resistive index of 0.8. -lower pole interlobar artery resistive index of 0.6. RAR left = cannot be calculated secondary to peak systolic velocities in the mid aorta. Aorta: -Peak systolic velocity = 203 cm/s. Abdominal aorta diameter is 3.1 cm. US/US renal doppler IMPRESSION: No hydronephrosis. 2.3 cm septated cysts, right kidney. 0.5 and 0.6 cm simple cyst, left kidney. No hemodynamically significant stenosis by ultrasound criteria. Slight abnormal resistive indicis, left kidney. Electronically signed by: Ron Issa MD 01/06/2025 12:01 PM EDT RP
--- OUTSIDE RECORDS SUMMARY | 2025-01-06 08:23 | XMS_ITS | Clinical Summary ---
Demographics Address [address] [place] [address] Work Phone Preferred Language es Marital Status Unknown Rastafarian Affiliation Unknown Race Other Race Ethnic Group Unknown Author Organization [employer] Address [address] [facility] 7t [place] [address] Care Team Providers Care Barber Instructor Name Role Phone Unavailable Primary Care Provider [...] 06/06/2021, 12/27/2020, Additional history exists Influenza Vaccine (Season Ended) 2025 06/28/2022, 06/20/2021, 04/11/2020, Additional history exists RSV Patients [...]
== END 2025-01-06 08:21 | disposition home or self-care (01) ==
LOC: HO.US 08:20
PROVIDERS: PCP Internal Medicine; Visit Provider Internal Medicine Nephrology
DX: I12.9 Hypertensive chronic kidney disease with stage 1 through stage 4 chronic kidney disease, or unspecified chronic kidney disease (principal); N18.31 Chronic kidney disease, stage 3a
CPT/HCPCS: 76775; 93975

== ENCOUNTER → 2025-01-06 08:28 | Outpatient (BNV) | payer MEDICARE, SELFPAY | PROVIDERS: PCP Internal Medicine; Visit Provider Radiology Diagnostic Radiology | DX: I13.10 Hypertensive heart and chronic kidney disease without heart failure, with stage 1 through stage 4 chronic kidney disease, or unspecified chronic kidney disease (principal); N18.31 Chronic kidney disease, stage 3a | CPT/HCPCS: 76775; 93975 ==

== ENCOUNTER 2025-02-11 11:07 | Outpatient (REF) | payer MEDICARE, SELFPAY ==
--- OUTSIDE RECORDS SUMMARY | 2023-10-16 09:00 | XMS_ITS ---
Demographics Address [address] [place] [address] Preferred Language en Marital Status Unknown Gnosticism Affiliation Unknown Race Ethnic Group or Author Organization [facility] Address [address] [place] [address] Support Name Relationship Address Phone ARLENE MCGEE Emergency Contact [address] [place] [address] WILLIS SINGH Guarantor Unknown [phone] Care Team Providers Care Chemical Applicator Name Role Phone Tiffani JEFFERSON, Hakeem Primary Care Provider Jorge A Maldonado Jr, Yoseph Yañez REASON FOR VISIT screening Medications Medication SIG [...] Active Encounters Encounter Location Date Provider Diagnosis [facility] [place] [address] [place], [place] [phone] 10/16/2023 Yoseph Maldonado Jr Encounter for screening colonoscopy Z12.11 and Colon polyps K63.5 Assessments Encounter Date Diagnosis (ICD Code) Assessment Notes Treatment Notes Treatment Clinical Notes Section Notes 10/16/2023 Encounter for screening colonoscopy (ICD-10 - Z12.11) 10/16/2023 Colon polyps (ICD-10 - K63.5) Plan Of Treatment No Information Progress Notes * VALDEZ SINGH:0 1955 (69 yo M)Acc No.[id number]:10/16/2023 COLON WITH MAC Patient: WILLIS CARVAJAL Provider: Desiree Maldonado MD :1955 A ge:68 Y S ex:Male Date:10/16/2023 Address:[address] [place] [address] Pcp:Hakeem Nixon MD Subjective: * Chief Complaints: [...] Procedure Codes: 4 5385 LESION REMOVAL COLONOSCOPY, 04049 COLONOSCOPY AND BIOPSY, Modifiers: 59 * * The named appointment provid er may or may not be the originator of this progress note, and it is not deemed complete until electronically signed by the appointment provider. Sign off status: Pending * Provider: Desiree Maldonado MD Date: 0 10/16/2023 Generated for Kathy cleveland/Dameon/Phu on: 0 02/11/2025 11:45 AM EDT
--- OUTSIDE RECORDS SUMMARY | 2024-12-08 07:00 | XMS_ITS ---
Demographics Address [address] [place] [address] Mobile Preferred Language en Marital Status unmarried Religion Affiliation Unknown Race Ethnic Group or Author Organization Hakeem Nixon MD Address [address] [place] [phone] Care Team Providers Care Tombstone Erector Helper Name Role Phone Hakeem Nixon Primary Care Provider [phone] REASON FOR VISIT refill Medications Medication SIG (Take, Route, Fr equency, Duration) Notes Start Date End Date Status traMADol HCl 50 MG 1 tablet as needed O rally Once a day for 30 days 12/08/2024 Active Encounters Encounter Location Date Provider Diagnosis Hakeem Nixon MD [address] [place] [phone] 12/08/2024 Hakeem Nixon Acute right-sided low back [...] 12/08/2024 Next Appt Details Provider Name:Hakeem clarke, 02/26/2025 10:00:00 AM, [address], Suite [facility], [place], [place], [phone], Provider Name:Hakeem clarke, 08/05/2025 08:00:00 AM, [address], [address], [place], [place], [phone], Provider Name:Hakeem Blood tricia, 08/12/2025 11:00:00 AM, [address], [address], [place], [place], [phone], Progress Notes * ARELY Rosas BARRYDOB:0 1955 (69 yo M)Acc No.[id number]:12/08/2024 Patient: Keerthi BERNARDORosas Deshpande :1955 A ge:69 Y S ex:Male Address:[address] [place] [address] * Refills Refill traMADol HCl Tablet, 50 MG, Orally, 30, 1 tablet as needed, Once a day, 30 days, Refills=2 * true * Date: Generated for Kathy cleveland/Dameon/Niraliitting on: 0 02/11/2025 11:44 AM EDT
--- OUTSIDE RECORDS SUMMARY | 2025-02-11 11:45 | XMS_ITS | Clinical Summary ---
Demographics Address [address] [place] [address] Work Phone Preferred Language es Marital Status Unknown Adventism Affiliation Unknown Race Other Race Ethnic Group Unknown Author Organization [employer] Address [address] [facility] 7t [place] [address] Care Team Providers Care Diploma Maker Name Role Phone Unavailable Primary Care Provider [...] 12/27/2020, Additional history exists Influenza Vaccine (#1) 2025 , 06/20/2021, 04/11/2020, Additional history exists RSV [...]
[2025-02-11 11:47] LABS: Hemoglobin A1C 182.1197 umol/L; Total Hemoglobin (HGBA1C) 3493.8157 umol/L
[2025-02-11 11:59] LABS: Alanine Aminotransferase 24 U/L (0-40); Albumin Level 4.3 g/dL (3.5-5.0); Alkaline Phosphatase 126 U/L (39-117); Aspartate Amino Transferase 27 U/L (5-37); Cholesterol 111 mg/dL (<200); HDL Cholesterol 34 mg/dL (>40); Total Protein 7.0 g/dL (6.5-8.0); Triglycerides 101 mg/dL (<150)
[2025-02-11 13:11] LABS: Reflex LDLD? No
== END 2025-02-11 11:08 | disposition home or self-care (01) ==
LOC: HO.LNP 11:07
PROVIDERS: Visit Provider Internal Medicine
DX: E11.9 Type 2 diabetes mellitus without complications (principal); I25.10 Atherosclerotic heart disease of native coronary artery without angina pectoris
CPT/HCPCS: 80061; 80076; 82947; 83036

== ENCOUNTER 2025-03-31 09:23 | Outpatient (AMB) | payer MEDICARE, SELFPAY ==
--- OUTSIDE RECORDS SUMMARY | 2023-10-16 09:00 | XMS_ITS ---
Demographics Address [address] [place] [address] Preferred Language en Marital Status Unknown Jain Affiliation Unknown Race Ethnic Group or Author Organization [facility] Address [address] [place] [address] Support Name Relationship Address Phone ARLENE MCGEE Emergency Contact [address] [place] [address] WILLIS SINGH Guarantor Unknown Care Team Providers Care Historic Interpreter Name Role Phone Tiffani JEFFERSON, Hakeem Primary Care Provider Jorge A Maldonado Jr, Yoseph Yañez [phone] REASON FOR VISIT screening Medications Medication SIG (Take, Route, Frequency, Duration) Notes Start Date End Date Status MiraLax (colon prep) 8.3 ounce ((238) grams mixed with Gatorade or Crystal Light orally begin at 5:00 p.m. the day before the procedure for 1 day 09/30/2023 Active amLODIPine Besylate 10 MG Oral for 90 Active Terbinafine HCl 250 MG TAKE 1 TABLET BY MOUTH EVERY DAY FOR 90 DAYS Oral for 90 Active Aspirin Low Dose 81 MG TAKE 1 TABLET BY MOUTH EVERY DAY Oral for 90 Active Metoprolol Tartrate 50 MG Oral for 90 Active Lisinopril 20 MG Orally Once a day Active Atorvastatin Calcium 40 MG TAKE 1 TABLET BY MOUTH EVERY DAY FOR 90 DAYS Oral for 90 Active traMADol HCl 50 MG Orally as needed Active Encounters Encounter Location Date Provider Diagnosis [facility] [address] [place], [place] [phone] 10/16/2023 Yoseph Maldonado Jr Encounter for screening colonoscopy Z12.11 and Colon polyps K63.5 Assessments Encounter Date Diagnosis (ICD Code) Assessment Notes Treatment Notes Treatment Clinical Notes Section Notes 10/16/2023 Encounter for screening colonoscopy (ICD-10 - Z12.11) 10/16/2023 Colon polyps (ICD-10 - K63.5) Plan Of Treatment No Information Progress Notes * VALDEZ SINGH:0 1955 (70 yo M)Acc No.[id number]:10/16/2023 COLON WITH MAC Patient: WILLIS CARVAJAL Provider: Desiree Maldonado MD :1955 A ge:68 Y S ex:Male Date:10/16/2023 Address:[address] [place] [address] Pcp:Hakeem Nixon MD Subjective: * Chief Complaints: * 1 . Screening. * Medical History: * Medications: T aking Lisinopril 20 MG Tablet Orally Once a day , Taking traMADol HCl 50 MG Tablet Orally as needed , Taking Atorvastatin Calcium 40 MG Tablet TAKE 1 TABLET BY MOUTH EVERY DAY FOR 90 DAYS Oral , Taking Terbinafine HCl 250 MG Tablet TAKE 1 TABLET BY MOUTH EVERY DAY FOR 90 DAYS Oral , Taking amLODIPine Besylate 10 MG Tablet Oral , Taking Metoprolol Tartrate 50 MG Tablet Oral , Taking Aspirin Low Dose 81 MG Tablet Delayed Release TAKE 1 TABLET BY MOUTH EVERY DAY Oral , Taking MiraLax (colon prep) 8.3 ounce ((238) grams mixed with Gatorade or Crystal Light orally begin at 5:00 p.m. the day before the procedure Objective: * Vitals: Assessment: * Assessment: 1. E ncounter for screening colonoscopy - Z12.11 (Primary) 2 . C olon polyps - K63.5 Plan: * Treatment: * Procedure Codes: 4 5385 LESION REMOVAL COLONOSCOPY, 05059 COLONOSCOPY AND BIOPSY, Modifiers: 59 * * The named appointment provid er may or may not be the originator of this progress note, and it is not deemed complete until electronically signed by the appointment provider. Sign off status: Pending * Provider: Desiree Maldonado MD Date: 0 10/16/2023 Generated for Kathy cleveland/Dameon/Phu on: 0 03/31/2025 11:08 AM EDT
--- OUTSIDE RECORDS SUMMARY | 2024-10-27 11:50 | XMS_ITS ---
Demographics Address [address] [place] [address] Mobile Preferred Language en Marital Status unmarried Restoration Affiliation Unknown Race Ethnic Group or Author Organization Hakeem Nxion MD Address [address] [place] [phone] Care Team Providers Care Rn Correctional Name Role Phone Hakeem Nixon Primary Care [...] Hakeem Nixon MD [address] [place] [phone] 10/27/2024 Hakeem Nixon Acute right-sided low back [...] 08:00:00 AM, [address], [address], [place], [place], [phone], Provider Name:Hakeem Blood ier, 08/12/2025 11:00:00 AM, [address], [address], [place], [place], [phone], Progress Notes * ARELY BERNARDORosas DeshpandeDOB:0 1955 (69 yo M)Acc No.[id number]:10/27/2024 Patient: Keerthi BERNARDORosas Deshpande :1955 A ge:69 Y S ex:Male Address:[address] [place] [address] * Refills Refill traMADol HCl Tablet, 50 MG, Orally, 30 Tablet, 1 tablet as needed, Once a day, 30 days, Refills=2 Refill Atorvastatin Calcium Tablet, 40 MG, Orally, 30, TAKE 1 TABLET BY MOUTH EVERY DAY, Once a day, 30 days, Refills=3 * true * Date: Generated for Kathy cleveland/Dameon/Phu on: 0 03/31/2025 11:08 AM EDT
--- OUTSIDE RECORDS SUMMARY | 2024-12-08 07:00 | XMS_ITS ---
Demographics Address [address] [place] [address] Mobile Preferred Language en Marital Status unmarried Muslim Affiliation Unknown Race Ethnic Group or Author Organization Hakeem Nixon MD Address [address] [place] [phone] Care Team Providers Care Corporate Fitness Program Coordinator Name Role Phone Hakeem Nixon Primary Care Provider REASON FOR VISIT refill Medications Medication SIG (Take, Route, Fr equency, Duration) Notes Start Date End Date Status traMADol HCl 50 MG 1 tablet as needed O rally Once a day for 30 days 12/08/2024 Active Encounters Encounter Location Date Provider Diagnosis Hakeem Nixon MD [address] [place] [phone] 12/08/2024 Hakeem Nixon Acute right-sided low back [...] Provider Name:Hakeem clarke, 08/05/2025 08:00:00 AM, [address], Suite [facility], [place], [place], [phone], Provider Name:Hakeem clarke, 08/12/2025 11:00:00 AM, [address], [address], [place], [place], [phone], Progress Notes * Annette SINGHkaranDOB:0 1955 (69 yo M)Acc No.[id number]:12/08/2024 Patient: Rosas CARVAJAL :1955 A ge:69 Y S ex:Male Address:[address] [place] [address] * Refills Refill traMADol HCl Tablet, 50 MG, Orally, 30, 1 tablet as needed, Once a day, 30 days, Refills=2 * true * Date: Generated for Kathy cleveland/Dameon/Niraliitting on: 0 03/31/2025 11:07 AM EDT
--- OUTSIDE RECORDS SUMMARY | 2025-02-11 04:00 | XMS_ITS ---
Demographics Address [address] [place] [address] Mobile Preferred Language en Marital Status unmarried Episcopal Affiliation Unknown Race Ethnic Group or Author Organization Hakeem Nixon MD Address [address] [place], [place] [phone] Care Team Providers Care Parole Hearing Officer Name Role Phone Hakeem Nixon Primary Care Provider Results Component Value Reference Range Notes Liver Panel Reviewed date:02/11/2025 03:21:09 PM Interpretation: Performing Lab:[address] [phone] Notes/Report: Bilirubin Total 0.3 0.0-1.0 mg/dL Bilirubin Direct 0.1 0.0-0.5 mg/dL Aspartate Amino Transferase 27 5-37 U/L Alanine Aminotransferase 24 0-40 U/L Total Protein 7.0 6.5-8.0 g/dL Albumin Level 4.3 3.5-5.0 g/dL Alkaline Phosphatase 126 39-117 U/L Glucose Fasting Reviewed date:02/11/2025 07:55:55 PM Interpretation: Performing Lab:[address] [phone] Notes/Report: Glucose Fasting 115 60-99 mg/dL A fasting glucose from 100-125 mg/dl is considered impaired (pre-diabetes). Lipid Panel with Reflex Reviewed date:02/11/2025 03:19:52 PM Interpretation: Performing Lab:[facility], [address] [place] [phone] Notes/Report: Triglycerides 101 <150 mg/dL Desirable Triglyceride: [...] A1c Reviewed date:02/11/2025 03:21:27 PM Interpretation: Performing Lab:[facility], [address] [place] [phone] Notes/Report: Hemoglobin A1c % 6.9 <6.0 % [...] average glucose, using the formula of the S5A-Gwhneqp Average Glucose study (ADAG), Diabetes Care, Vol.31,#8, Feb. 2007 REASON FOR VISIT FASTING LIPIDS Encounters Encounter Location Date Provider Diagnosis Hakeem Nixon MD [address] [place] [address] [address] [place], [place] [phone] 02/11/2025 Hakeem Nixon Type 2 diabetes mellitus [...] 08:00:00 AM, [address], [address], [place], [place], [phone], Provider Name:Hakeem Blood ier, 08/12/2025 11:00:00 AM, [address], [address], [place], [place], [phone], Progress Notes * Rosas SINGHDOB:0 1955 (70 yo M)Acc No.[id number]:02/11/2025 Progress Note Patient: Rosas CARVAJAL Provider: Jayshree Nixon MD :1955 A ge:69 Y S ex:Male Date:02/11/2025 Address: [address] [id number] Subjective: * Chief Complaints: * 1 [...] MD Date: 0 02/11/2025 Generated for Kathy ng/Dmaeon/eTransmitting on: 0 03/31/2025 11:07 AM EDT
--- OUTSIDE RECORDS SUMMARY | 2025-02-22 10:54 | XMS_ITS ---
Demographics Address [address] [place] [address] Mobile Preferred Language en Marital Status unmarried Gnosticist Affiliation Unknown Race Ethnic Group or Author Organization Hakeem Nixon MD Address [address] [address] [place] [phone] Care Team Providers Care Surfboard Designer Name Role Phone Hakeem Nixon Primary Care Provider [phone] REASON FOR VISIT refill Medications Medication SIG (Take, Route, Frequency, Duration) Notes Start Date End Date Status Metoprolol Tartrate 50 MG TAKE 1 TABLET BY MOUTH TWICE A DAY WITH FOOD for 90 days Active Encounters Encounter Location Date Provider Diagnosis Hakeem Nixon MD [address] [facility] [address] [place] [phone] 02/22/2025 Hakeem Nixon Essential hypertension I10 Assessments [...] Details Provider Name:Hakeem clarke, 08/05/2025 08:00:00 AM, [address] [place] [address], [address], [phone], Provider Name:Hakeem clarke, 08/12/2025 11:00:00 AM, [address] [place] [address], [address], [phone], Progress Notes * Rosas SINGHDOB:0 1955 (69 yo M)Acc No.[id number]:02/22/2025 Patient: Rosas CARVAJAL :1955 A ge:69 Y S ex:Male Address:[address] [place] [address] * Refills Refill Metoprolol Tartrate Tablet, 50 MG, 180, TAKE 1 TABLET BY MOUTH TWICE A DAY WITH FOOD, 90 days, Refills=3 * true * Date: Generated for Kathy cleveland/Dameon/Niraliitting on: 0 03/31/2025 11:08 AM EDT
--- OUTSIDE RECORDS SUMMARY | 2025-02-26 06:00 | XMS_ITS ---
Demographics Address [address] [place] [address] Mobile Preferred Language en Marital Status unmarried Adventist Affiliation Unknown Race Ethnic Group or Author Organization Hakeem Nixon MD Address [address] [place] [phone] Care Team Providers Care Health Practice Manager Name Role Phone Hakeem Nixon Primary [...] Date Provider Diagnosis Hakeem Nixon MD [address] [place], [place] [phone] 02/26/2025 Hakeem Nixon Plan Of Treatment Next Appt Details Provider Name:Hakeem Blood ier, 08/05/2025 08:00:00 AM, [address] [place] [address], [address], [place], [place], [phone], Provider Name:Hakeem Blood ier, 08/12/2025 11:00:00 AM, [address] [facility], [address], [place], [phone], Progress Notes * Rosas SINGHDOB:0 1955 (70 yo M)Acc No.[id number]:02/26/2025 Progress Notes Patient: Rosas CARVAJAL Provider: Jayshree Nixon MD :1955 A ge:69 Y S ex:Male Date:02/26/2025 Address: [address] [id number] Subjective: * Chief Complaints: * 1 [...] MD Date: 0 02/26/2025 Generated for Kathy cleveland/Dameon/Niraliitting on: 0 03/31/2025 11:08 AM EDT History and Physical Notes * HPI (History of Present Illness) Category Sub-Category Detail Notes Category Not es Symptom(s) patient is a 69 yo male here for 6 monthfollow up visit
--- NOTE | 2025-03-31 09:32 | HO.NEPHOV_ITS ---
Vital Signs 03/31/25 09:33 Height 5 ft 5 in Weight 173 lb 2 oz BMI 28.8 BP 112/80 Blood Pressure Location Rt brachial Position Sitting Pulse 60 Pulse Source Pulse Oximeter Pulse Oximetry (%) 97 Oxygen Delivery Method Room Air Intake Visit Reasons: 4 MO FU-Conf W/spouse Slash Trimmer Required: No Accompanied by: Self / Same As Patient Allergies No Known Allergies Allergy (Verified 03/31/25 09:33) HPI Comments Details: Rosas was seen in follow up for CKD. He has H/O and had undergone bioprosthetic aortic valve replacement. He had undergone cardiac catheterization at that time and had atherosclerotic disease which did not need any CABG. He is not a diabetic but hypertensive. He has proteinuria. He is known to have arthritis but denies taking excessive NSAID's. He denies chest pain, edema, SOB, PND, orthopnea, hematuria or orthostatic symptoms. He is on ACEI. He does not have any epistaxis, photosensitivity, skin rashes, joint swelling, H/O CHF, carotid stenosis, PAD or known ALEXIA. He has not had any labs prior to this visit. [facility] Medical History (Updated 10/10/24 @ 20:26 by Gustabo Rodarte MD) Non-rheumatic mitral valve stenosis Aortic stenosis Back pain Essential hypertension Atherosclerotic cardiovascular disease Surgical History H/O colonoscopy Hx of hernia repair History of cardiac catheterization (~08/07/17) History of aortic valve replacement (~09/27/17) Family History Father No problems noted. Mother No problems noted. Social History Alcohol intake: current Alcohol intake frequency: a few times a week Patient Tobacco Use Status: Current everyday Tobacco user Tobacco use type: Cigarette Cigarettes Per Day: 4 Years Smoked: 60 Current occupational status: employed and disabled Current occupation: [employer] Review of Systems Const All systems reviewed & are unremarkable except as noted in HPI and below Physical Exam Const General: comfortable and no acute distress Orientation/consciousness: patient oriented x3 HEENT Head: Yes normocephalic Mouth: Normal oral and palatal mucosa present Eyes EOM: EOMs intact bilaterally Neck Neck: Yes supple Resp Auscultation: clear to auscultation bilaterally Cardio Jugular venous distension: no JVD Rate: regular rate GI Palpation (GI): Soft to palpation Auscultation: normal bowel sounds General: Yes no CVA tenderness Back/Spine/Pelvis Back: no CVA tenderness Skin General skin exam: no rashes or lesions noted Neuro General: patient oriented x3 and moves all extremities Extrem General: Yes no pedal edema Results Reviewed Nephrology Results: Sodium, (135-145) 142 mmol/L 11/25/24 Potassium, (3.3-5.1) 4.6 mmol/L 11/25/24 Chloride, (96-108) 106 mmol/L 11/25/24 Carbon Dioxide, (22-29) 29 mmol/L 11/25/24 BUN, (9-16) 19 mg/dL H 11/25/24 Creatinine, (0.5-1.4) 1.49 mg/dL H 11/25/24 Calcium, (8.4-10.2) 9.5 mg/dL 11/25/24 Phosphorus, (2.7-4.5) 3.0 mg/dL 11/25/24 PTH Intact, (8.7-77.1) 122.5 pg/mL H 11/25/24 Urine Protein, (Neg-Trace) 100 (2+) mg/dL H 11/25/24 Urine Creatinine 276.70 mg/dL 11/25/24 Protein/Creatinin Ratio, (<0.2) 0.33 H 11/25/24 Renal US 01/06/25 Assessment & Plan Assessment & Plan (1) Essential hypertension: Code(s): I10 - Essential (primary) hypertension Category: Medical (2) CKD stage 3a, GFR 45-59 ml/min: Code(s): N18.31 - Chronic kidney disease, stage 3a Category: Medical Plan Rosas has CKD due to vascular disease. He has atherosclerotic CAD. His renal USS and Doppler of renal arteries were reviewed . He is tolerating ACEI. I shall consider initiating him on SGLT2 i at next visit . He maintains good hydration and avoids NSAID's. Further management is pending evolving data. Answered all questions. Orders: Orders Blood Urea Nitrogen 3 Months I10 - Essential (primary) hypertension, N18.31 - Chronic kidney disease, stage 3a Electrolytes Today I10 - Essential (primary) hypertension, N18.31 - Chronic ki dney disease, stage 3a Hemoglobin A1c 3 Months N18.31 - Chronic kidney disease, stage 3a Creatinine 3 Months I10 - Essential (primary) hypertension, N18.31 - Chronic kidney disease, stage 3a Electrolytes 3 Months I10 - Essential (primary) hypertension, N18.31 - Chronic kidney disease, stage 3a Protein Creatinine Ratio, Ur 3 Months I10 - Essential (primary) hypertension, N18.31 - Chronic kidney disease, stage 3a Blood Urea Nitrogen Today I10 - Essential (primary) hypertension, N18.31 - Chronic kidney disease, stage 3a Creatinine Today I10 - Essential (primary) hypertension, N18.31 - Chronic kidney disease, stage 3a Coding Level of Care Code Est Pt Level 4 (62651) Diagnoses Essential hypertension I10 CKD stage 3a, GFR 45-59 ml/min N18.31
[2025-03-31 09:33] VITALS: BP 112/80; PULSE 60; O2SAT 97; BMI 28.8
--- OUTSIDE RECORDS SUMMARY | 2025-03-31 11:08 | XMS_ITS | Patient Health Record ---
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 Name Role Phone Hakeem Nixon Primary Care Provider Allergies No Known Allergies Results Component Value Reference Range Notes Complete Blood Count Auto Di ff Reviewed date:08/04/2024 01:13:03 PM Interpretation: Performing Lab:[facility], [address] [place] [phone] Notes/Report: White Blood Count 8.3 4.8-10.8 X10*3/uL [...] 0.0-0.2 /100WBC Neutrophils Absolute Auto 4.8 2.0-8.3 x10*3/uL Imm Gran Abs Auto 0.02 0.00-0.03 X10*3/uL Lymphocytes Absolute Auto 2.2 1.2-4.9 X10*3/uL Monocytes Absolute Auto 0.9 0.1-1.2 X10*3/uL Eosinophils Absolute Auto 0.3 0.0-0.4 X10*3/uL Basophils Absolute Auto 0.1 0.0-0.2 X10*3/uL NRBC Abs Auto 0.000 0.0-0.012 X10*3/uL Comprehensive [place]. Panel Fa Reviewed date:08/10/2024 02:18:47 PM Interpretation:08-10-24 Performing Lab:[address] [address] Notes/Report: Sodium 144 135-145 mmol/L Potassium 5.2 [...] Panel Reviewed date:08/04/2024 12:24:02 PM Interpretation: Performing Lab:[address] [address] Notes/Report: Triglycerides 107 <150 mg/dL Desirable Triglyceride: [...] (Free>4and<10) Reviewed date:08/04/2024 12:40:01 PM Interpretation: Performing Lab:[facility], [address] [place] [phone] Notes/Report: PSA,Total (Free>4and<10) 0.77 0.00-4.00 ng/mL A [...] Random Reviewed date:08/04/2024 01:00:09 PM Interpretation: Performing Lab:[facility], [address] [place] [phone] Notes/Report: Creatinine Urine 82.52 Microalbumin Urine 28.0 Microalbum/Creatinine Ratio Ur 33.9 <30 ug/mg cr Albumin/Creatinine Ratio Reference Ranges: Normal: < 30 ug/mg creatinine Microalbuminuria: 30 - 300 ug/mg creatinine Clinical Albuminuria: > 300 ug/mg creatinine Hemoglobin A1c Reviewed date:08/04/2024 12:30:48 PM Interpretation: Performing Lab:[facility], [address] [place] [phone] Notes/Report: Hemoglobin A1c % 6.8 <6.0 % [...] average glucose, using the formula of the C8X-Gdcigia Average Glucose study (ADAG), Diabetes Care, Vol.31,#8, Feb. 2007 UA ClnCatch+Micro w/rflx Cul t Reviewed date:08/04/2024 01:26:51 PM Interpretation: Performing Lab:[address] [address] Notes/Report: Urine, Clean Catch Color Urine Yellow Appearance Urine Clear PH 6.5 5.0-9.0 Glucose Urine UA Negative Negative mg/dL Urine Blood Negative Negative Specific [place] - Urine 1.015 1.005-1.025 Urine Protein Negative Neg-Trace mg/dL Urine Ketones Negative Negative mg/dL Nitrite Urine Negative Negative Leukocyte Esterase Urine Negative Negative RBC Urine 0-2 0-2 /HPF WBC Urine 0-5 0-5 /HPF Squamous Epithelial Cell Urine 0-2 0-2 /HPF Bacteria Urine None Seen None Seen Hyaline Casts Urine 0-2 0-2 /LPF Potassium Reviewed date:09/07/2024 11:04:39 AM Interpretation: Performing Lab:[facility], [address] [place] [phone] Notes/Report: Potassium 4.5 3.3-5.1 mmol/L Blood Urea Nitrogen Reviewed date:09/07/2024 12:33:18 PM Interpretation: Performing Lab:[facility], [address] [place] [phone] Notes/Report: Blood Urea Nitrogen 17 9-16 mg/dL Creatinine Reviewed date:09/07/2024 12:30:10 PM Interpretation: Performing Lab:[facility] [address] Notes/Report: Creatinine 1.34 0.5-1.4 mg/dL Estimated Glomerular Filt Rate 53 Chronic Kidney Disease: Estimated GFR < 60 mL/min/1.73m2 Severe Kidney Disease: Estimated GFR < 15 mL/min/1.73m2 Liver Panel Reviewed date:02/11/2025 03:21:09 PM Interpretation: Performing Lab:[address] [address] Notes/Report: Bilirubin Total 0.3 0.0-1.0 mg/dL Bilirubin Direct 0.1 0.0-0.5 mg/dL Aspartate Amino Transferase 27 5-37 U/L Alanine Aminotransferase 24 0-40 U/L Total Protein 7.0 6.5-8.0 g/dL Albumin Level 4.3 3.5-5.0 g/dL Alkaline Phosphatase 126 39-117 U/L Glucose Fasting Reviewed date:02/11/2025 07:55:55 PM Interpretation: Performing Lab:[facility], [address] [place] [phone] Notes/Report: Glucose Fasting 115 60-99 mg/dL A fasting glucose from 100-125 mg/dl is considered impaired (pre-diabetes). Lipid Panel with Reflex Reviewed date:02/11/2025 03:19:52 PM Interpretation: Performing Lab:[address] [address] Notes/Report: Triglycerides 101 <150 mg/dL Desirable Triglyceride: [...] A1c Reviewed date:02/11/2025 03:21:27 PM Interpretation: Performing Lab:[facility], [address] [place] [phone] Notes/Report: Hemoglobin A1c % 6.9 <6.0 % [...] average glucose, using the formula of the I5J-Xjyraao Average Glucose study (ADAG), Diabetes Care, Vol.31,#8, Feb. 2007 US renal doppler Reviewed date:01/14/2025 05:16:26 PM Interpretation: Performing Lab: Notes/Report: [address] [address] Ultrasound Report Signed Patient: Rosas Kirkland MR#: [id number] : 1955 Acct:[id number] Age/Sex: 69 / M ADM Date: 01/06/25 Loc: . Attending Dr: Gustabo Rodarte MD Ordering Physician: Gustabo Rodarte MD Date of Service: 01/06/25 Procedure(s): US renal doppler Accession Number(s): [id number] cc: Hakeem Nixon MD; Gustabo Rodarte MD EXAMINATION: Ultrasound renal, bilaterally. Ultrasound renal Doppler. CLINICAL INFORMATION: CAD stage IIIa. Hypertension. COMPARISON: No priors. TECHNIQUE: Real-time ultrasound kidneys using grayscale and color Doppler technique. Spectral color Doppler analysis of the main renal arteries and the abdominal aorta at the origin of the main renal arteries. FINDINGS: Right kidney: 10 x 6 x 4 cm. Normal echotexture. Normal renal cortical thickness. No hydronephrosis. There is a 2.3 cm exophytic and thin septated anechoic lesion in the anterior midportion/upper pole junction. No flow on color Doppler interrogation. Left kidney: 10 x 5 x 4 cm. Normal echotexture. Normal renal cortical thickness. No hydronephrosis. There are a 0.5 and 0.6 cm exophytic anechoic lesions in the anterior midportion without flow on color Doppler interrogation. SPECTRAL DOPPLER ANALYSIS: RIGHT KIDNEY: -Peak systolic velocity in the proximal right renal artery = 115 cm/s. Normal waveforms. -Peak systolic velocity in the mid right renal artery = 109 cm/s. Normal waveforms. -Peak systolic velocity in the distal right renal artery = 79 cm/s. Normal waveforms. -Patent right renal vein. -Upper pole interlobar artery resistive index of 0.7. -Midpole interlobar artery resistive index of 0.7. -Lower pole interlobar artery resistive index of 0.7. RAR right = cannot be calculated secondary to peak systolic velocities in the mid aorta. LEFT KIDNEY: -Peak systolic velocity in the proximal left renal artery = 137 cm/s. Normal waveforms. -Peak systolic velocity in the mid left renal artery = 136 cm/s. Normal waveforms. -Peak systolic velocity in the distal left renal artery = 47 cm/s. Normal waveforms. -Patent left renal vein. -Upper pole interlobar artery resistive index of 0.6. -Mid pole interlobar artery resistive index of 0.8. -lower pole interlobar artery resistive index of 0.6. RAR left = cannot be calculated secondary to peak systolic velocities in the mid aorta. Aorta: -Peak systolic velocity = 203 cm/s. Abdominal aorta diameter is 3.1 cm. US/US renal doppler IMPRESSION: No hydronephrosis. 2.3 cm septated cysts, right kidney. 0.5 and 0.6 cm simple cyst, left kidney. No hemodynamically significant stenosis by ultrasound criteria. Slight abnormal resistive indicis, left kidney. Electronically signed by: Ron Issa MD 01/06/2025 12:01 PM EDT Dictated By: Ron Grubbs MD Signed By: <Electronically signed by Ron Chavez MD in OV> 01/06/25 1201 DD/ 0900 TD/TT: 01/06/25 0937 Caseworker Protective Services: [address] [address] Ultrasound Report Signed Patient: Rosas Kirkland MR#: [id number] : 1955 Acct:[id number] Age/Sex: 69 / M ADM Date: 01/06/25 Loc: HO.US Attending Dr: Gustabo Rodarte MD Ordering Physician: Gustabo Rodarte MD Date of Service: 01/06/25 Procedure(s): US don al doppler Accession Number(s): [id number] cc: Hkaeem Nixon MD; Gustabo Rodarte MD EXAMINATION: Ultrasound renal, bilaterally. Ultrasound renal Doppler. CLINICAL INFORMATION: CAD stage IIIa. Hypertension. COMPARISON: No priors. TECHNIQUE: Real-time ultrasound kidneys using grayscale and color Doppler technique. Spectral color Doppler analysis of the main renal arteries and the abdominal ao rta at the origin of the main renal arteries. FINDINGS: Right kidney: 10 x 6 x 4 cm. Yeimi l echotexture. Normal renal cortical thickness. No hydronephrosis. There is a 2.3 cm exophytic and thin septated anechoic lesion in the anterior midportion/upper pole junction. No flow on color Doppler interrogation. Left kidney: 10 x 5 x 4 cm. Normal echotexture. Normal renal cortica l thickness. No hydronephrosis. There are a 0.5 and 0.6 cm exophytic anechoic lesions in the anterior midportion without f low on color Doppler interrogation. SPECTRAL DOPPLER ANALYSIS: RIGHT KIDNEY: -Peak systolic veloc ity in the proximal right renal artery = 115 cm/s. Normal waveforms. -Peak systolic veloc ity in the mid right renal artery = 109 cm/s. Normal waveforms. -Peak systolic veloc ity in the distal right renal artery = 79 cm/s. Normal waveforms. -Patent right renal vein. -Upper pole interlob ar artery resistive index of 0.7. -Midpole interlobar artery resistive index of 0.7. -Lower pole interlob ar artery resistive index of 0.7. RAR right = cannot b e calculated secondary to peak systolic velocities in the mid aorta. LEFT KIDNEY: -Peak systolic veloc ity in the proximal left renal artery = 137 cm/s. Normal waveforms. -Peak systolic veloc ity in the mid left renal artery = 136 cm/s. Normal waveforms. -Peak systolic veloc ity in the distal left renal artery = 47 cm/s. Normal waveforms. -Patent left renal vein. -Upper pole interlob ar artery resistive index of 0.6. -Mid pole interlobar artery resistive index of 0.8. -lower pole interlob ar artery resistive index of 0.6. RAR left = cannot be calculated secondary to peak systolic velocities in the mid aorta. Aorta: -Peak systolic veloc ity = 203 cm/s. Abdominal aorta diameter is 3.1 cm. US/US renal doppler IMPRESSION: No hydronephrosis. 2.3 cm septated cyst s, right kidney. 0.5 and 0.6 cm simpl e cyst, left kidney. No hemodynamically significant stenosis by ultrasound criteria. Slight abnormal resistive indicis, left kidney. Electronically froylan d by: Ron Issa MD 01/06/2025 12:01 PM EDT RP Dictated By: Ron Grajeda MD Signed By: <Electronically signed by Ron Chavez MD in OV> 01/06/25 1201 DD/ 0900 TD/TT: 01/06/25 0937 Caseworker Protective Services: US renal BI Reviewed date:01/14/2025 05:16:36 PM Interpretation: Performing Lab: Notes/Report: [address] [address] Ultrasound Report Signed Patient: Rosas Kirkland MR#: [id number] : 1955 Acct:[id number] Age/Sex: 69 / M ADM Date: 01/06/25 Loc: HO.US Attending Dr: Gustabo Rodarte MD Ordering Physician: Gustabo Rodarte MD Date of Service: 01/06/25 Procedure(s): US renal BI Accession Number(s): [id number] cc: Hakeem Nixon MD; Gustabo Rodarte MD EXAMINATION: Ultrasound renal, bilaterally. Ultrasound renal Doppler. CLINICAL INFORMATION: CAD stage IIIa. Hypertension. COMPARISON: No priors. TECHNIQUE: Real-time ultrasound kidneys using grayscale and color Doppler technique. Spectral color Doppler analysis of the main renal arteries and the abdominal aorta at the origin of the main renal arteries. FINDINGS: Right kidney: 10 x 6 x 4 cm. Normal echotexture. Normal renal cortical thickness. No hydronephrosis. There is a 2.3 cm exophytic and thin septated anechoic lesion in the anterior midportion/upper pole junction. No flow on color Doppler interrogation. Left kidney: 10 x 5 x 4 cm. Normal echotexture. Normal renal cortical thickness. No hydronephrosis. There are a 0.5 and 0.6 cm exophytic anechoic lesions in the anterior midportion without flow on color Doppler interrogation. SPECTRAL DOPPLER ANALYSIS: RIGHT KIDNEY: -Peak systolic velocity in the proximal right renal artery = 115 cm/s. Normal waveforms. -Peak systolic velocity in the mid right renal artery = 109 cm/s. Normal waveforms. -Peak systolic velocity in the distal right renal artery = 79 cm/s. Normal waveforms. -Patent right renal vein. -Upper pole interlobar artery resistive index of 0.7. -Midpole interlobar artery resistive index of 0.7. -Lower pole interlobar artery resistive index of 0.7. RAR right = cannot be calculated secondary to peak systolic velocities in the mid aorta. LEFT KIDNEY: -Peak systolic velocity in the proximal left renal artery = 137 cm/s. Normal waveforms. -Peak systolic velocity in the mid left renal artery = 136 cm/s. Normal waveforms. -Peak systolic velocity in the distal left renal artery = 47 cm/s. Normal waveforms. -Patent left renal vein. -Upper pole interlobar artery resistive index of 0.6. -Mid pole interlobar artery resistive index of 0.8. -lower pole interlobar artery resistive index of 0.6. RAR left = cannot be calculated secondary to peak systolic velocities in the mid aorta. Aorta: -Peak systolic velocity = 203 cm/s. Abdominal aorta diameter is 3.1 cm. US/US renal BI IMPRESSION: No hydronephrosis. 2.3 cm septated cysts, right kidney. 0.5 and 0.6 cm simple cyst, left kidney. No hemodynamically significant stenosis by ultrasound criteria. Slight abnormal resistive indicis, left kidney. Electronically signed by: Ron Issa MD 01/06/2025 12:01 PM EDT Dictated By: Ron Grubbs MD Signed By: <Electronically signed by Ron Chavez MD in OV> 01/06/25 1201 DD/ 0900 TD/TT: 01/06/25 0937 Caseworker Protective Services: [address] [address] Ultrasound Report Signed Patient: Rosas Kirkland MR#: [id number] : 1955 Acct:[id number] Age/Sex: 69 / M ADM Date: 01/06/25 Loc: HO.US Attending Dr: Gustabo Rodarte MD Ordering Physician: Gustabo Rodarte MD Date of Service: 01/06/25 Procedure(s): US don Morales Accession Number(s): [id number] cc: Hakeem Nixon MD; Gustabo Rodarte MD EXAMINATION: Ultrasound renal, bilaterally. Ultrasound renal Doppler. CLINICAL INFORMATION: CAD stage IIIa. Hypertension. COMPARISON: No priors. TECHNIQUE: Real-time ultrasound kidneys using grayscale and color Doppler technique. Spectral color Doppler analysis of the main renal arteries and the abdominal ao rta at the origin of the main renal arteries. FINDINGS: Right kidney: 10 x 6 x 4 cm. Yeimi l echotexture. Normal renal cortical thickness. No hydronephrosis. There is a 2.3 cm exophytic and thin septated anechoic lesion in the anterior midportion/upper pole junction. No flow on color Doppler interrogation. Left kidney: 10 x 5 x 4 cm. Normal echotexture. Normal renal cortica l thickness. No hydronephrosis. There are a 0.5 and 0.6 cm exophytic anechoic lesions in the anterior midportion without f low on color Doppler interrogation. SPECTRAL DOPPLER ANALYSIS: RIGHT KIDNEY: -Peak systolic veloc ity in the proximal right renal artery = 115 cm/s. Normal waveforms. -Peak systolic veloc ity in the mid right renal artery = 109 cm/s. Normal waveforms. -Peak systolic veloc ity in the distal right renal artery = 79 cm/s. Normal waveforms. -Patent right renal vein. -Upper pole interlob ar artery resistive index of 0.7. -Midpole interlobar artery resistive index of 0.7. -Lower pole interlob ar artery resistive index of 0.7. RAR right = cannot b e calculated secondary to peak systolic velocities in the mid aorta. LEFT KIDNEY: -Peak systolic veloc ity in the proximal left renal artery = 137 cm/s. Normal waveforms. -Peak systolic veloc ity in the mid left renal artery = 136 cm/s. Normal waveforms. -Peak systolic veloc ity in the distal left renal artery = 47 cm/s. Normal waveforms. -Patent left renal vein. -Upper pole interlob ar artery resistive index of 0.6. -Mid pole interlobar artery resistive index of 0.8. -lower pole interlob ar artery resistive index of 0.6. RAR left = cannot be calculated secondary to peak systolic velocities in the mid aorta. Aorta: -Peak systolic veloc ity = 203 cm/s. Abdominal aorta diameter is 3.1 cm. US/US renal BI IMPRESSION: No hydronephrosis. 2.3 cm septated cyst s, right kidney. 0.5 and 0.6 cm simpl e cyst, left kidney. No hemodynamically significant stenosis by ultrasound criteria. Slight abnormal resistive indicis, left kidney. Electronically froylan d by: Ron Issa MD 01/06/2025 12:01 PM EDT RP Dictated By: Ron Grajeda MD Signed By: <Electronically signed by Ron Chavez MD in OV> 01/06/25 1201 DD/ 0900 TD/TT: 01/06/25 0937 Caseworker Protective Services: Chikis Hinojosa Reviewed date:02/11/2025 03:10:15 PM Interpretation: Performing Lab:[facility], [address] [place] [phone] Notes/Report: Chikis Hinojosa See Note Specimen held untested for 24 [...] a day for 30 days 12/08/2024 Active Sildenafil Citrate 100 MG 1 tablet [...] tablet Orall y Once a day Not-Taking Immunizations Vaccine Route Administration Date Status Comme [...] Unknown 03/30/2023 Administered [facility] SARS-COV-2 Moderna 2023 Unknown 04/11/2024 Administered [facility] Influenza High Dose [...] W/U Status Risk Notes Problem Erectile dysfunction (081758581) Erectile dysfunction (N52.9) Active confirmed Problem 1204556 Arthritis (M19.90) Active confirmed Problem 343181578 Tubular adenoma of colon (D12.6) Active confirmed Problem 68477901 Essential hypertension (I10) Active confirmed Problem 45609497 Heart murmur (R01.1) Active confirmed Problem 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) Peyronie disease (N48.6) Active confirmed Problem Current smoker (80525185) Current smoker (F17.200) Active confirmed Problem 35736577 Sciatica of left side (M54.32) Active confirmed Problem 94721940 Aortic valve stenosis, unspecified etiology (I35.0) Active confirmed Problem Coronary artery disease (21272435) CAD (coronary artery disease) (I25.10) Active confirmed Problem Sciatica (48395158) Acute right-sided low back pain with right-sided sciatica (M54.41) Active confirmed Problem 6828588 Peyronie's disea se (N48.6) Active confirmed Problem 696097357 Type 2 diabetes mellitus without complication, without long-term current use of insulin (E11.9) Active confirmed Problem 312359 Valvular heart disease (I38) Active confirmed Problem 391787688 Anticoagulation adequate (Z79.01) Active confirmed Problem 2371160728146 S/P AVR (aortic valve replacement) (Z95.2) Active [...] Location Date Provider Diagnosis Hakeem Nixon MD [address] [place] [address] [phone] 08/04/2024 Hakeem Nixon Blood tests for routine general physical examination Z00.00 ; Essential hypertension I10 and Type 2 diabetes mellitus without complication, without long-term current use of insulin E11.9 Hakeem Nixon MD [address] [place] [address] [phone] 09/07/2024 Hakeem Nixon Essential hypertension I10 and Type 2 diabetes mellitus without complication, without long-term current use of insulin E11.9 Hakeem Nixon MD [address] [place] [id number] 02/11/2025 Hakeem Nixon Type 2 diabetes mellitus without complication, without long-term current use of insulin E11.9 and CAD (coronary artery disease) I25.10 Hakeem Nixon MD [address] [place] [address] [phone] 08/10/2024 Hakeem Nixon Type 2 diabetes mellitus without complication, without long-term current use of insulin E11.9 ; Erectile dysfunction N52.9 ; Acute right-sided low back pain with right-sided sciatica M54.41 ; Elevated BUN R79.9 ; Essential hypertension I10 ; Colon cancer screening Z12.11 ; Depression screening Z13.31 and CAD (coronary artery disease) I25.10 Hakeem Nixon MD [address] [place] [address] [phone] 04/02/2024 Hakeem Nixon MD [address] [place] [address] [id number] 05/12/2024 Hakeem Nixon MD [address] [place] [id number] 09/10/2024 Hakeem Nixon Acute right-sided lo w back pain with right-sided sciatica M54.41 Hakeem Nixon MD [address] [place] [id number] 10/27/2024 Hakeem Nixon Acute right-sided lo w back pain with right-sided sciatica M54.41 and CAD (coronary artery disease) I25.10 Hakeem Nixon MD [address] [place] [id number] 12/08/2024 Hakeem Nixon Acute right-sided lo w back pain with right-sided sciatica M54.41 Hakeem Nixon MD [address] [place] [id number] 02/22/2025 Hakeem Nixon Essential hypertension I10 Assessments Encounter Date Diagnosis (ICD Code) Assessment Notes Treatment Notes Treatment Clinical Notes Section Notes 08/04/2024 Blood tests for routine general physical examination (ICD-10 - Z00.00) 09/07/2024 Essential hypertension (ICD-10 - I10) 02/11/2025 Type 2 diabetes mellitus without complication, without long-term current use of insulin (ICD-10 - E11.9) 08/10/2024 Type 2 diabetes mellitus without complication, without long-term current use of insulin (ICD-10 - E11.9) doing well , will coniotnue current regiment 08/10/2024 Erectile dysfunction (ICD-10 - N52.9) stable, will continue current regiment 09/10/2024 Acute right-sided low back pain with right-sided sciatica (ICD-10 - M54.41) 10/27/2024 Acute right-sided low back pain with right-sided sciatica (ICD-10 - M54.41) 12/08/2024 Acute right-sided low back pain with right-sided sciatica (ICD-10 - M54.41) 02/22/2025 Essential hypertension (ICD-10 - I10) 08/04/2024 Essential hypertension (ICD-10 - I10) 09/07/2024 Type 2 diabetes mellitus without complication, without long-term current use of insulin (ICD-10 - E11.9) 02/11/2025 CAD (coronary artery disease) (ICD-10 - I25.10) 08/10/2024 Acute right-sided low back pain with right-sided sciatica (ICD-10 - M54.41) 10/27/2024 CAD (coronary artery disease) (ICD-10 - I25.10) 08/04/2024 Type 2 diabetes mellitus without complication, without long-term current use of insulin (ICD-10 - E11.9) 08/10/2024 Elevated BUN (ICD-10 - R79.9) referral to nephrology/ REFERRAL FAXED TO [facility] FOR SCHEDULING 08/10/2024 Essential hypertension (ICD-10 - I10) stable, will continue current regiment 08/10/2024 Colon cancer screening (ICD-10 - Z12.11) guaiac negative 08/10/2024 Depression screening (ICD-10 - Z13.31) negative screen 08/10/2024 CAD (coronary artery disease) (ICD-10 - I25.10) stable, continue current regiment Plan Of Treatment Next Appt Details Provider Name:Hakeem Blood ier, 08/05/2025 08:00:00 AM, [address] [place] [address], [address], [phone], Provider Name:Hakeem Blood ier, 08/12/2025 11:00:00 AM, [address] [place] [address], [address], [phone], Insurance Providers Payer Name Payer Address Payer Phone Subscriber Number Group Number Insured Name Patient Relationship to Insured Coverage Start Date Coverage End Date [employer] E [address] [facility], [place] [id number] Rosas Kirkland Self - patient is the insured MEDICARE [employer] [address] [place] [id number] Rosas Kirkland Self - patient is the insured Medical (General) History Medical History History ICD Code colonoscopy 12/2009 w/Dr. Choudhary fford - repeat 5 years; colonoscopy done on 04/04/18 due in 5 years NEEDS YEARLY ECHO - done 06/26/17, done 02/2020
--- OUTSIDE RECORDS SUMMARY | 2025-03-31 11:09 | XMS_ITS | Clinical Summary ---
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
--- OUTSIDE RECORDS SUMMARY | 2025-03-31 11:09 | XMS_ITS | Patient Health Record ---
Demographics Address [address] [place] [address] Preferred Language en Marital Status Unknown Gnosticist Affiliation Unknown Race Ethnic Group or Author Organization [facility] Address [address] [place] [address] Support Name Relationship Address Phone ARLENE MCGEE Emergency Contact [address] [place] [address] ARELY BARRY WILLIS Guarantor Unknown Care Team Providers Care Baby Sitter Name Role Phone Hakeem Nixon MD Primary [...] Problem Status W/U Status Risk Notes Problem 849713991 Colon cancer screening (Z12.11) Active confirmed Problem 325055170 Encounter for other preprocedural examination (Z01.818) Active confirmed Problem 799139781 Long-term use of aspirin therapy (Z79.82) Active confirmed Plan Of Treatment Future Test Test Name Order Date COLONOSCOPY 08/29/2017 COLONOSCOPY 09/30/2023 Insurance Providers Payer Name Payer Address Payer Phone Subscriber Number Group Number Insured Name Patient Relationship to Insured Coverage Start Date Coverage End Date [facility] [address] [place], [place] [id number] WILLIS SINGH Self - patient is the insured Medical (General) History Medical History History ICD Code Hypertension Back pain/DJD Aortic stenosis status post aVR, non-rheumatic mitral stenosis, coronary disease Surgical History Surgery Date(Month/Year) Hernia repair Cardiac catheterization 07/25: Nonobstruc tive coronary disease
== END 2025-03-31 10:38 | disposition home or self-care (01) ==
LOC: HO.HKA 09:24
PROVIDERS: PCP Internal Medicine; Visit Provider Internal Medicine Nephrology
DX: I10 Essential (primary) hypertension (principal); N18.31 Chronic kidney disease, stage 3a
CPT/HCPCS: 99214

== ENCOUNTER 2025-03-31 09:23 | Outpatient (REF) | payer MEDICARE, SELFPAY ==
[2025-03-31 12:03] LABS: Anion Gap 12 (12-20); Blood Urea Nitrogen 17 mg/dL (9-16); Carbon Dioxide 26 mmol/L (22-29); Chloride 108 mmol/L (96-108); Estimated Glomerular Filt Rate 48; Potassium 4.3 mmol/L (3.3-5.1); Sodium 142 mmol/L (135-145)
== END 2025-03-31 09:24 | disposition home or self-care (01) ==
LOC: HO.LAB 09:23
PROVIDERS: PCP Internal Medicine; Visit Provider Internal Medicine Nephrology
DX: I12.9 Hypertensive chronic kidney disease with stage 1 through stage 4 chronic kidney disease, or unspecified chronic kidney disease (principal); N18.31 Chronic kidney disease, stage 3a
CPT/HCPCS: 36415; 80051; 82565; 84520; 99212

== ENCOUNTER 2025-06-28 10:46 | Outpatient (REF) | payer MEDICARE, SELFPAY ==
--- OUTSIDE RECORDS SUMMARY | 2024-08-04 03:30 | XMS_ITS ---
Demographics Address [address] [place] [address] Mobile Preferred Language en Marital Status unmarried Confucianism Affiliation Unknown Race Ethnic Group or Author Organization Hakeem Nixon MD Address [address] [place], [place] [phone] Care Team Providers Care Sole Rougher Name Role Phone Hakeem Nixon Primary Care Provider Results Component Value Reference Range Notes Complete Blood Count Auto Di ff Reviewed date:08/04/2024 01:13:03 PM Interpretation: Performing Lab:[facility], [address] [place] [phone] Notes/Report: White Blood Count 8.3 4.8-10.8 X10*3/uL Red Blood Count 4.92 4.60-5.80 X10*6/uL Hemoglobin 14.2 14.0-18.0 g/dl Hematocrit 44.8 42.0-52.0 % Mean Corpuscular Volume 91.1 80.0-98.0 fL Mean Corpuscular Hemoglobin 28.9 27.0-33.0 pg Mean Corpuscular HGB Conc 31.7 31.0-36.0 g/dl Red Cell Distribution Width 15.5 11.0-16.0 % Platelet Count 254 160-400 X10*3/uL Mean Platelet Volume 9.9 9.4-12.4 fL Neutrophils Percent Auto 58.2 45-73 % Imm Gran Pct Auto 0.2 0.0-0.4 % Lymphocytes Percent Auto 27.0 20-40 % Monocytes Percent Auto 10.5 2-11 % Eosinophils Percent Auto 3.4 0-4 % Basophils Percent Auto 0.7 0-2 % NRBC Pct Auto 0.0 0.0-0.2 /100WBC Neutrophils Absolute Auto 4.8 2.0-8.3 x10*3/u L Imm Gran Abs Auto 0.02 0.00-0.03 X10*3/uL Lymphocytes Absolute Auto 2.2 1.2-4.9 X10*3/u L Monocytes Absolute Auto 0.9 0.1-1.2 X10*3/uL Eosinophils Absolute Auto 0.3 0.0-0.4 X10*3/u L Basophils Absolute Auto 0.1 0.0-0.2 X10*3/uL NRBC Abs Auto 0.000 0.0-0.012 X10*3/uL Comprehensive [place]. Panel Fa Reviewed date:08/10/2024 02:18:47 PM Interpretation:08-10-24 Performing Lab:[address] [phone] Notes/Report: Sodium 144 135-145 mmol/L Potassium 5.2 3.3-5.1 mmol/L Chloride 113 96-108 mmol/L Carbon Dioxide 30 22-29 mmol/L Anion Gap 6 12-20 Blood Urea Nitrogen 26 9-16 mg/dL Creatinine 1.56 0.5-1.4 mg/dL Estimated Glomerular Filt Rate 44 Chronic Kidney Disease: Estimated GFR < 60 mL/min/1.73m2 Severe Kidney Disease: Estimated GFR < 15 mL/min/1.73m2 Glucose Fasting 115 60-99 mg/dL A fasting glucose from 100-125 mg/dl is considered impaired (pre-diabetes). Calcium 9.1 8.4-10.2 mg/dL Bilirubin Total 0.4 0.0-1.0 mg/dL Aspartate Amino Transferase 22 5-37 U/L Alanine Aminotransferase 24 0-40 U/L Total Protein 8.1 6.5-8.0 g/dL Albumin Level 4.5 3.5-5.0 g/dL Alkaline Phosphatase 137 39-117 U/L Lipid Panel Reviewed date:08/04/2024 12:24:02 PM Interpretation: Performing Lab:[address] [phone] Notes/Report: Triglycerides 107 <150 mg/dL Desirable Triglyceride: less than 150 mg/dL Borderline High Triglyceride 150-199 mg/dL High Triglyceride: 200-499 mg/dL Very High Triglyceride: greater than or equal to 5OO mg/dL Cholesterol 127 <200 mg/dL Desirable Cholesterol: less than 200 mg/dL Borderline High Cholesterol: 200-239 mg/dL High Cholesterol: greater than 239 mg/dL LDL Cholesterol Calculated 68 <100 mg/dL Desirable LDL: less than 100 mg/dL Near Optimal/Above Optimal LDL: 110-129 mg/dL Borderline High LDL: 130-159 mg/dL High LDL: 160-189 mg/dL Very High LDL: greater than or equal to 190 mg/dL HDL Cholesterol 38 >40 mg/dL Desirable HDL: greater than 40 mg/dL Note: This HDL assay may give artificially low results in patients with liver disease. PSA,Total (Free>4and<10) Reviewed date:08/04/2024 12:40:01 PM Interpretation: Performing Lab:[address] [phone] Notes/Report: PSA,Total (Free>4and<10) 0.77 0.00-4.00 ng/mL A Free PSA was not performed: The percentage of Free PSA can be used to enhance the differentiation of prostate cancer from benign prostatic disease in subjects whose PSA levels are between 4.0 and 10.0 ng/mL. For subjects whose PSA levels are below 4.0 or above 10.0 ng/mL, the risk of prostate cancer is determined on the basis of the PSA alone. Therefore the % Free PSA is recommended only for those subjects whose PSA levels are between 4.0 and 10.0 ng/mL. PSA methodology: Christensen Alinity i Chemiluminescent Microparticle Immunoassay (CMIA) Microalbumin, Random Reviewed date:08/04/2024 01:00:09 PM Interpretation: Performing Lab:[facility], [address] [place] [phone] Notes/Report: Creatinine Urine 82.52 Microalbumin Urine 28.0 Microalbum/Creatinine Ratio Ur 33.9 <30 ug/mg cr Albumin/Creatinine Ratio Reference Ranges: Normal: < 30 ug/mg creatinine Microalbuminuria: 30 - 300 ug/mg creatinine Clinical Albuminuria: > 300 ug/mg creatinine Hemoglobin A1c Reviewed date:08/04/2024 12:30:48 PM Interpretation: Performing Lab:[facility], [address] [place] [phone] Notes/Report: Hemoglobin A1c % 6.8 <6.0 % Hemoglobin A1C Reference Range Adults: 4.8 - 6.0 % Non diabetic: < 6.0 % Goal: < 7.0 % Additional Action Suggested: > 8.0 % Note: Hemoglobin A1c results are invalid for patients with abnormal amounts of HbF. Blood transfusions may impact the HbA1c concentration in the patient sample. Estimated Average Glucose 148 eAG = Estimated average glucose which is %A1C expressed as average glucose, using the formula of the X4V-Bvdpibz Average Glucose study (ADAG), Diabetes Care, Vol.31,#8, Feb. 2007 UA ClnCatch+Micro w/rflx Cul t Reviewed date:08/04/2024 01:26:51 PM Interpretation: Performing Lab:[facility], [address] [place] [phone] Notes/Report: Urine, Clean Catch Color Urine Yellow Appearance Urine Clear PH 6.5 5.0-9.0 Glucose Urine UA Negative Negative mg/dL Urine Blood Negative Negative Specific [place] - Urine 1.015 1.005-1.025 Urine Protein Negative Neg-Trace mg/dL Urine Ketones Negative Negative mg/dL Nitrite Urine Negative Negative Leukocyte Esterase Urine Negative Negative RBC Urine 0-2 0-2 /HPF WBC Urine 0-5 0-5 /HPF Squamous Epithelial Cell Urine 0-2 0-2 /HPF Bacteria Urine None Seen None Seen Hyaline Casts Urine 0-2 0-2 /LPF REASON FOR VISIT FASTING LABS Encounters Encounter Location Date Provider Diagnosis Hakeem Nixon MD [address] [place] [address] Drive [address] [place], [place] [phone] 08/04/2024 Hakeem Nixon Blood tests for routine general physical examination Z00.00 ; Essential hypertension I10 and Type 2 diabetes mellitus without complication, without long-term current use of insulin E11.9 Assessments Encounter Date Diagnosis (ICD Code) Assessment Notes Treatment Notes Treatment Clinical Notes Section Notes 08/04/2024 Blood tests for routine general physical examination (ICD-10 - Z00.00) 08/04/2024 Essential hypertension (ICD-10 - I10) 08/04/2024 Type 2 diabetes mellitus without complication, without long-term current use of insulin (ICD-10 - E11.9) Plan Of Treatment Next Appt Details Provider Name:Hakeem Blood ier, 08/05/2025 08:00:00 AM, [address], [address], [place], [place], [phone], Provider Name:Hakeem Blood ier, 08/12/2025 11:00:00 AM, [address], [address], [place], [place], [phone], Progress Notes * Rosas SINGHDOB:0 1955 (70 yo M)Acc No.[id number]:08/04/2024 Progress Note Patient: Rosas CARVAJAL Provider: Jayshree Nixon MD :1955 A ge:69 Y S ex:Male Date:08/04/2024 Address: [address] [facility] Subjective: * Chief Complaints: * 1 . FASTING LABS. * Medical History: Objective: * Vitals: Assessment: * Assessment: 1. B lood tests for routine general physical examination - Z00.00 (Primary) 2 .?Essential hypertension - I10 3 . T ype 2 diabetes mellitus without complication, without long-term current use of insulin - E11.9 Plan: * Treatment: 2. E ssential hypertension L AB: Complete Blood Count Auto Diff (Collection Date & Time - 08/04/2024 08:30 AM) L AB: Comprehensive [place]. Panel Fast (Collection Date & Time - 08/04/2024 08:30 AM) L AB: Lipid Panel (Collection Date & Time - 08/04/2024 08:30 AM) L AB: PSA,Total (Free>4and<10) (Collection Date & Time - 08/04/2024 08:30 AM) L AB: Microalbumin, Random (Collection Date & Time - 08/04/2024 08:30 AM) L AB: Hemoglobin A1c (Collection Date & Time - 08/04/2024 08:30 AM) L AB: UA ClnCatch+Micro w/rflx Cult (Collection Date & Time - 08/04/2024 08:30 AM) 3. T ype 2 diabetes mellitus without complication, without long-term current use of insulin L AB: Complete Blood Count Auto Diff (Collection Date & Time - 08/04/2024 08:30 AM) L AB: Comprehensive [place]. Panel Fast (Collection Date & Time - 08/04/2024 08:30 AM) L AB: Lipid Panel (Collection Date & Time - 08/04/2024 08:30 AM) L AB: PSA,Total (Free>4and<10) (Collection Date & Time - 08/04/2024 08:30 AM) L AB: Microalbumin, Random (Collection Date & Time - 08/04/2024 08:30 AM) L AB: Hemoglobin A1c (Collection Date & Time - 08/04/2024 08:30 AM) L AB: UA ClnCatch+Micro w/rflx Cult (Collection Date & Time - 08/04/2024 08:30 AM) * Procedure Codes: 3 6415 VENIPUNCT, ROUTINE* * * The named appointment provid er may or may not be the originator of this progress note, and it is not deemed complete until electronically signed by the appointment provider. Sign off status: Pending * Provider: Jayshree Nixon MD Date: 0 08/04/2024 Generated for Kathy cleveland/Dameon/Phu on: 08/29/2024 01:22 PM EST
--- OUTSIDE RECORDS SUMMARY | 2024-08-10 08:45 | XMS_ITS ---
Demographics Address [address] [place] [address] Mobile Preferred Language en Marital Status unmarried Anabaptism Affiliation Unknown Race Ethnic Group or Author Organization Hakeem Nixon MD Address [address] [place], [place] [phone] Care Team Providers Care Product Sales Engineer Name Role Phone Hakeem Nixon Primary Care Provider [phone] Allergies No Known Allergies Reason For Referral Reason ELEVATED BUN Diagnosis 1 Elevated BUN (R79.9) Referral Organization Hakeem Nixon MD Referring Provider First Name Hakeem Referring Provider Last Name Tiffani Referring Provider Speciality Internal M edicine Referred Provider Ajit Delgado Referred Provider Specialty Nephrology General Notes Hanna Culver 08/20/2024 11:14:21 AM >appt set up and patient informed, Hanna Culver 09/07/2024 11:23:47 AM >OFFICE NOTE RECD Referral Priority Routine Referral Appointment Date 08/28/2024 REASON FOR VISIT ANNUAL EXAM/ must see comp meta Medications Medication SIG (Take, Route, Frequency, Duration) Notes Start Date End Date Status Lisinopril 40 MG TAKE 1 TABLET BY DELFINA TH EVERY DAY Active Atorvastatin Calcium 40 MG TAKE 1 TABLET BY MOUTH EVERY DAY Orally Once a day Active Metoprolol Tartrate 50 MG TAKE 1 TABLET BY MOUTH TWICE A DAY WITH FOOD Active oxyCODONE HCl 5 MG 1 tablet as needed Orally every 6 hrs Not-Taking Sildenafil Citrate 100 MG 1 tablet as ne eded Orally Once a day 03/06/2022 Active Sildenafil Citrate 100 MG 1 tablet as ne eded Orally Once a day for 30 day(s) 08/10/2024 Active traMADol HCl 50 MG TAKE 1 TABLET BY DELFINA TH EVERY DAY NEEDED FOR 30 DAYS ORALLY ONCE A DAY Orally Once a day for 30 days 05/12/2024 Active traMADol HCl 50 MG 1 tablet as needed Orally Once a day for 30 days 08/10/2024 Active Pantoprazole Sodium 40 MG 1 tablet Orall y Once a day Not-Taking Aspirin Low Dose 81 MG TAKE 1 TABLET BY MOUTH EVERY DAY Orally Once a day for 90 days Active Social History Tobacco Use: Social History Observation Description Date Details (start date - stop date) Current Smoker NA - NA AUDIT-C (Standard) Question Answer Notes Did you have a drink contain ing alcohol in the past year? Yes How often did you have a dri nk containing alcohol in the past year? 2 to 3 times a week (3 points) How many drinks did you have on a typical day when you were drinking in the past year? 3 or 4 drinks (1 point) How often did you have six o r more drinks on one occasion in the past year? Never (0 point) Points 4 Interpretation Positive Tobacco Control (Standard) Question Answer Notes Tobacco use: Current every day smoker Additional Findings: Tobacco user Light cigarett e smoker (1-9 cigs/day) Vital Signs Blood pressure systolic 112 mm Hg 08/10/19 25 Blood pressure diastolic 60 mm Hg 025 Height 65 in 08/10/2024 Weight 175 lbs 08/10/2024 BMI 29.12 kg/m2 08/10/2024 weight is up 12 pounds since 07-05-23 Encounters Encounter Location Date Provider Diagnosis Hakeem Nixon MD [address] [place] [address] [place] [phone] 08/10/2024 Hakeem Nixon Type 2 diabetes mellitus without complication, without long-term current use of insulin E11.9 ; Erectile dysfunction N52.9 ; Acute right-sided low back pain with right-sided sciatica M54.41 ; Elevated BUN R79.9 ; Essential hypertension I10 ; Colon cancer screening Z12.11 ; Depression screening Z13.31 and CAD (coronary artery disease) I25.10 Assessments Encounter Date Diagnosis (ICD Code) Assessment Notes Treatment Notes Treatment Clinical Notes Section Notes 08/10/2024 Type 2 diabetes mellitus without complication, without long-term current use of insulin (ICD-10 - E11.9) doing well , will coniotnue current regiment 08/10/2024 Erectile dysfunction (ICD-10 - N52.9) stable, will continue current regiment 08/10/2024 Acute right-sided low back pain with right-sided sciatica (ICD-10 - M54.41) 08/10/2024 Elevated BUN (ICD-10 - R79.9) referral to nephrology/ REFERRAL FAXED TO [facility] FOR [facility]EDULING 08/10/2024 Essential hypertension (ICD-10 - I10) stable, will continue current regiment 08/10/2024 Colon cancer screening (ICD-10 - Z12.11) guaiac negative 08/10/2024 Depression screening (ICD-10 - Z13.31) negative screen 08/10/2024 CAD (coronary artery disease) (ICD-10 - I25.10) stable, continue current regiment Plan Of Treatment Medication Medication Name Sig Start Date Stop Date Notes Lisinopril 40 MG TAKE 1 TABLET BY DELFINA TH EVERY DAY Atorvastatin Calcium 40 MG TAKE 1 TABLET BY MOUTH EVERY DAY Orally Once a day Metoprolol Tartrate 50 MG TAKE 1 TABLET BY MOUTH TWICE A DAY WITH FOOD Sildenafil Citrate 100 MG 1 tablet as ne eded Orally Once a day 03/06/2022 Sildenafil Citrate 100 MG 1 tablet as ne eded Orally Once a day for 30 day(s) 08/10/2024 traMADol HCl 50 MG 1 tablet as needed O rally Once a day for 30 days 08/10/2024 Treatment Notes Assessment Notes Type 2 diabetes mellitus wit hout complication, without long-term current use of insulin doing well , will coniotnue current regiment Erectile dysfunction stable, will contin ue current regiment Elevated BUN referral to nephrolo gy/ REFERRAL FAXED TO [facility] FOR SCHEDULING Essential hypertension stable, will cont inue current regiment Colon cancer screening guaiac negative Depression screening negative screen CAD (coronary artery disease) stable, co ntinue current regiment Referrals Referral Date Details 08/10/2024 08/10/2024, ELEVATED BUN, Ajit Delgado Next Appt Details Provider Name:Hakeem clarke, 08/05/2025 08:00:00 AM, [address] [place] [address], [address], [place], [place], [phone], Provider Name:Hakeem Blood ier, 08/12/2025 11:00:00 AM, [address] [facility], [address], [place], [phone], Progress Notes * Rosas SINGHDOB:0 1955 (69 yo M)Acc No.[id number]:08/10/2024 Progress Notes Patient: Rosas CARVAJAL Provider: Jayshree Nixon MD :1955 A ge:69 Y S ex:Male Date:08/10/2024 [facility] [id number] Subjective: * Chief Complaints: * A NNUAL EXAM/ must see comp meta * HPI: D epression Screening: PHQ-9 L ittle interest or pleasure in doing things N ot at all, F eeling down, depressed, or hopeless N ot at all, T rouble falling or staying asleep, or sleeping too much N ot at all, F eeling tired or having little energy N ot at all, P oor appetite or overeating N ot at all, F eeling bad about yourself or that you are a failure, or have let yourself or your family down N ot at all, T rouble concentrating on things, such as reading the newspaper or watching television N ot at all, M oving or speaking so slowly that other people could have noticed; or the opposite, being so fidgety or restless that you have been moving around a lot more than usual N ot at all, T houghts that you would be better off or of hurting yourself in some way N ot at all, T otal Score 0 . I nterpretation and Intervention D epression Screening Findings N egative, F ollow-Up for Depression : review of PHQ-9 found negative result, no follow-up needed. C ommunication Needs: Communication Needs D oes the patient have a hearing impairment N o, D oes the patient have a vision impairment? Y es, I f yes, what is the vision impairment? G lasses, D oes the patient have a cognition impairment? N o. F all Risk: History H ave you had any falls with injury in the past year? N o, H ave you had two or more falls in the past year? N o. S HANSA Questions: SDOH Questions I n the past year have you been worried about losing housing? N o, I n the past year have you or any family members you live with been unable to get any of the following when it was really needed? Check all that apply: N one. S ymptom(s): patient is a 69 yo male here for annual visit with review of recent labs and follow up of chronic issues.. ankle bothers on left after an injury 8 years. * ROS: G eneral/Constitutional: Patient denies f atigue, headache. C hange in appetite?denies. C hills d enies. F ever d enies. O phthalmologic: Blurred vision d enies. D ischarge d enies. P ain d enies. E NT: Patient denies d ecreased sense of smell, any loss of taste, sore throat. D ecreased hearing d enies. S ore throat d enies. S wollen glands?denies. E ndocrine: Cold intolerance d enies. E xcessive thirst d enies. H eat intolerance d enies. W eight loss d enies. R espiratory: Cough d enies. S hortness of breath at rest d enies. S hortness of breath with exertion d enies. W heezing d enies. C ardiovascular: Chest pain at rest d enies. C hest pain with exertion?denies. I rregular heartbeat d enies. S hortness of breath d enies. ? G astrointestinal: Abdominal pain d enies. C hange in bowel habits d enies. D iarrhea d enies. N ausea d enies. R ectal bleeding d enies. V omiting d enies . G enitourinary: Blood in urine d enies. D ifficulty urinating d enies. F requent urination d enies. M usculoskeletal: Patient denies m uscle aches. P ainful joints d enies. W eakness d enies. P eripheral Vascular: Patient denies r ed and blue toes. S kin: Dry skin d enies. I tching d enies. D enies?Mole(s), changes in moles, new moles or any lesions of concern. D enies P hotosensitivity. R april d enies. N eurologic: Dizziness d enies. F ainting d enies. H eadache?denies. * Medical History: * Surgical History: * Hospitalization/Major Diagno stic Procedure: * Family History: F ather: 87 yrs. M other: alive 90 yrs. 4 brother(s) , 4 sister(s) . 1 son(s) , 1 daughter(s) . . Denies mental health/substance abuse family history, No pertinent family medical history, No pertinent family medical history. * Social History: T obacco Use: T obacco Control (Standard) T obacco use: C urrent every day smoker, A dditional Findings: Tobacco user L ight cigarette smoker (1-9 cigs/day). M iscellaneous: C affeine: yes, frequency:, 2-3 cups per day. Children: yes. Exercise: no. Home smoke detector use: yes. Housing: renting. Marital status: single. Occupation: weeks/months/years, unemployed. Travel outside of the [place]: no. D rug/Alcohol: A MAX-C (Standard) D id you have a drink containing alcohol in the past year? Y es, H ow often did you have a drink containing alcohol in the past year? 2 to 3 times a week (3 points), H ow many drinks did you have on a typical day when you were drinking in the past year? 3 or 4 drinks (1 point), H ow often did you have six or more drinks on one occasion in the past year? N ever (0 point), P oints 4 , I nterpretation P ositive. * Medications: T akingMetoprolol Tartrate 50 MG Tablet TAKE 1 TABLET BY MOUTH TWICE A DAY WITH FOOD Sildenafil Citrate 100 MG Tablet 1 tablet as needed Orally Once a day Lisinopril 40 MG Tablet TAKE 1 TABLET BY MOUTH EVERY DAY Atorvastatin Calcium 40 MG Tablet TAKE 1 TABLET BY MOUTH EVERY DAY Orally Once a day Aspirin Low Dose 81 MG Tablet Delayed Release TAKE 1 TABLET BY MOUTH EVERY DAY Orally Once a day traMADol HCl 50 MG Tablet TAKE 1 TABLET BY MOUTH EVERY DAY NEEDED FOR 30 DAYS ORALLY ONCE A DAY Orally Once a day Taking Metoprolol Tartrate 50 MG Tablet TAKE 1 TABLET BY MOUTH TWICE A DAY WITH FOOD Taking Sildenafil Citrate 100 MG Tablet 1 tablet as needed Orally Once a day Taking Lisinopril 40 MG Tablet TAKE 1 TABLET BY MOUTH EVERY DAY Taking Atorvastatin Calcium 40 MG Tablet TAKE 1 TABLET BY MOUTH EVERY DAY Orally Once a day Taking Aspirin Low Dose 81 MG Tablet Delayed Release TAKE 1 TABLET BY MOUTH EVERY DAY Orally Once a day Taking traMADol HCl 50 MG Tablet TAKE 1 TABLET BY MOUTH EVERY DAY NEEDED FOR 30 DAYS ORALLY ONCE A DAY Orally Once a day Not- Taking/PRNPantoprazole Sodium 40 MG Tablet Delayed Release 1 tablet Orally Once a day oxyCODONE HCl 5 MG Tablet 1 tablet as needed Orally every 6 hrs Not-Taking/PRN Pantoprazole Sodium 40 MG Tablet Delayed Release 1 tablet Orally Once a day Not-Taking/PRN oxyCODONE HCl 5 MG Tablet 1 tablet as needed Orally every 6 hrs DiscontinuedTerbinafine HCl 250 MG Tablet take 1 tablet by mouth daily Orally Once a day Medication List reviewed and reconciled with the patientDiscontinued Terbinafine HCl 250 MG Tablet take 1 tablet by mouth daily Orally Once a day Medication List reviewed and reconciled with the patient * Allergies: N .K.D.A.yes[Allergies Verified] Objective: * Vitals: H t: 65, Wt: 175, BMI:29.12, BP:112/60, Wt-k.38. weight is up 12 pounds since 07-05-23. * P ast Orders: L ab:Microalbumin, Random (Order Date - 08/04/2024) (Collection Date & Time - 08/04/2024 08:30 AM) Value Reference Range Creatinine Urine 82.52 - mg/dL Microalbumin Urine 28.0 - mg/L Microalbum Creatinine Ratio Ur 33.9 H <30 - ug/ mg cr L ab:Hemoglobin A1c (Order Date - 08/04/2024) (Collection Date & Time - 08/04/2024 08:30 AM) Value Reference Range Hemoglobin A1c % 6.8 H <6.0 - % Estimated Average Glucose 148 - mg/dL L ab:Lipid Panel (Order Date - 08/04/2024) (Collection Date & Time - 08/04/2024 08:30 AM) Value Reference Range Triglycerides 107 <150 - mg/dL Cholesterol 127 <200 - mg/dL LDL Cholesterol Calculated 68 <100 - mg/dL HDL Cholesterol 38 L >40 - mg/dL L ab:PSA,Total (Free>4and<10) (Order Date - 08/04/2024) (Collection Date & Time - 08/04/2024 08:30 AM) Value Reference Range PSA,Total (Free>4and<10) 0.77 0.00-4.00 - ng/ mL L ab:Complete Blood Count Auto Diff (Order Date 08/04/2024) (Collection Date & Time - 08/04/2024 08:30 AM) Value Reference Range White Blood Count 8.3 4.8-10.8 - X10*3/uL Red Blood Count 4.92 4.60-5.80 - X10*6/uL Hemoglobin 14.2 14.0-18.0 - g/dl Hematocrit 44.8 42.0-52.0 - % Mean Corpuscular Volume 91.1 80.0-98.0 - fL Mean Corpuscular Hemoglobin 28.9 27.0-33.0 - pg Mean Corpuscular HGB Conc 31.7 31.0-36.0 - g/ dl Red Cell Distribution Width 15.5 11.0-16.0 - % Platelet Count 254 160-400 - X10*3/uL Mean Platelet Volume 9.9 9.4-12.4 - fL Neutrophils Percent Auto 58.2 45-73 - % Imm Gran Pct Auto 0.2 0.0-0.4 - % Lymphocytes Percent Auto 27.0 20-40 - % Monocytes Percent Auto 10.5 2-11 - % Eosinophils Percent Auto 3.4 0-4 - % Basophils Percent Auto 0.7 0-2 - % NRBC Pct Auto 0.0 0.0-0.2 - /100WBC Neutrophils Absolute Auto 4.8 2.0-8.3 - x10* 3/uL Imm Gran Abs Auto 0.02 0.00-0.03 - X10*3/uL Lymphocytes Absolute Auto 2.2 1.2-4.9 - X10* 3/uL Monocytes Absolute Auto 0.9 0.1-1.2 - X10*3/ uL Eosinophils Absolute Auto 0.3 0.0-0.4 - X10* 3/uL Basophils Absolute Auto 0.1 0.0-0.2 - X10*3/ uL NRBC Abs Auto 0.000 0.0-0.012 - X10*3/uL L ab:UA ClnCatch+Micro w/rflx Cult (Order Date - 08/04/2024) (Collection Date & Time - 08/04/2024 08:30 AM) Value Reference Range Color Urine Yellow - Appearance Urine Clear - PH 6.5 5.0-9.0 - Glucose Urine UA Negative Negative - mg/dL Urine Blood Negative Negative - Specific Marion - Urine 1.015 1.005-1.025 - Urine Protein Negative Neg-Trace - mg/dL Urine Ketones Negative Negative - mg/dL Nitrite Urine Negative Negative - Leukocyte Esterase Urine Negative Negative - RBC Urine 0-2 0-2 - /HPF WBC Urine 0-5 0-5 - /HPF Squamous Epithelial Cell Urine 0-2 0-2 - /HP F Bacteria Urine None Seen None Seen - Hyaline Casts Urine 0-2 0-2 - /LPF * Examination: G eneral Examination: GENERAL APPEARANCE: w ell developed, well nourished, in no acute distress. HEAD: n ormocephalic, atraumatic. EYES: p upils equal, round, reactive to light and accommodation, sclera non-icteric. EARS: n ormal. ORAL CAVITY: m ucosa moist. THROAT: c lear. NECK/THYROID: n stephon supple, full range of motion, no cervical lymphadenopathy, no bruits. SKIN: w arm and dry, no suspicious lesions. HEART: r egular rate and rhythm, S1, S2 normal, no murmurs.? LUNGS: c lear to auscultation bilaterally. ABDOMEN: s oft, nontender, nondistended, bowel sounds present, normal, no organomegaly , no masses palpable. RECTAL EXAM: n ormal tone, no external hemorrhoids, no masses palpable, prostate normal, stool guaiac negative. MALE GENITOURINARY: n ot examined. EXTREMITIES: n o clubbing, cyanosis, or edema. NEUROLOGIC: n onfocal, motor strength normal upper and lower extremities, sensory exam intact. PODIATRIC: n ormal pinprick, normal pulses, normal light touch. FOOT EXAM: . Assessment: * Assessment: 1. T ype 2 diabetes mellitus without complication, without long-term current use of insulin - E11.9 (Primary) 2 . E rectile dysfunction - N52.9 3 . A cute right-sided low back pain with right-sided sciatica - M54.41 4 . E levated BUN - R79.9 5 . E ssential hypertension - I10 6 . C olon cancer screening - Z12.11 7 . D epression screening - Z13.31 8 . C AD (coronary artery disease) - I25.10 Plan: * Treatment: 2. E rectile dysfunction Start Sildenafil Citrate Tablet, 100 MG, 1 tablet as needed, Orally, Once a day, 30 day(s), 30;?Continue Sildenafil Citrate Tablet, 100 MG, 1 tablet as needed, Orally, Once a day. Notes: stable, will continue current regiment 3. A cute right-sided low back pain with right-sided sciatica Start traMADol HCl Tablet, 50 MG, 1 tablet as needed, Orally, Once a day, 30 days, 30 Tablet, Refills 2. 4. E levated BUN Notes: referral to nephrology/ REFERRAL FAXED TO [facility] FOR [facility]ULING ? Referral To:Ajit Delgado Nephrology Reason:ELEVATED BUN 5. E ssential hypertension Continue Metoprolol Tartrate Tablet, 50 MG, TAKE 1 TABLET BY MOUTH TWICE A DAY WITH FOOD; C ontinue Lisinopril Tablet, 40 MG, TAKE 1 TABLET BY MOUTH EVERY DAY. Notes: stable, will continue current regiment 6. C olon cancer screening Notes: guaiac negative 7. D epression screening Notes: negative screen 8. C AD (coronary artery disease) Continue Atorvastatin Calcium Tablet, 40 MG, TAKE 1 TABLET BY MOUTH EVERY DAY, Orally, Once a day.? Notes: stable, continue current regiment * Procedure Codes: * * Sign off status: Completed true * Provider: Jayshree Nixon MD Date: 0 08/10/2024 Generated for Kathy cleveland/Dameon/Phu on: 1 08/29/2024 01:23 PM EST History and Physical Notes * HPI (History of Present Illness) Category Sub-Category Detail Notes Category Not es Symptom(s) patient is a 69 yo male here for annual visit with review of recent labs and follow up of chronic issues.. ankle bothers on left after an injury 8 years. Depression Screening PHQ-9 Little inte rest or pleasure in doing things: Not at all Feeling down, depressed, or hopeless: No t at all Trouble falling or staying asleep, or sl eeping too much: Not at all Feeling tired or having little energy: N ot at all Poor appetite or overeating: Not at all Feeling bad about yourself o r that you are a failure, or have let yourself or your family down: Not at all Trouble concentrating on thi ngs, such as reading the newspaper or watching television: Not at all Moving or speaking so slowly that other people could have noticed; or the opposite, being so fidgety or restless that you have been moving around a lot more than usual: Not at all Thoughts that you would be b amanda off or of hurting yourself in some way: Not at all Total Score: 0 Interpretation and Intervention Depression Freeman verdugo Findings: Negative Follow-Up for Depression: : review of PH Q-9 found negative result, no follow-up needed SDOH Questions SDOH Questions In the past year have you been worried about losing housing?: No In the past year have you or any family members you live with been unable to get any of the following when it was really needed? Check all that apply:: None Fall Risk History Have you had any falls with injury i n the past year?: No Have you had two or more falls in the st year?: No Communication Needs Communication Needs Does the patient have a hearing impairment: No Does the patient have a vision impairmen t?: Yes If yes, what is the vision impairment?: Glasses Does the patient have a cognition impair ment?: No Examination Category Sub-Category Detail Notes Category Not es General Examination GENERAL APPEARANCE: well dev eloped, well nourished, in no acute distress HEAD: normocephalic, atrau matic EYES: pupils equal, round, reactive to light and accommodation, sclera non-icteric EARS: normal THROAT: clear NECK/THYROID: neck supple, full ra nge of motion, no cervical lymphadenopathy, no bruits HEART: regular rate and rhy thm, S1, S2 normal, no murmurs LUNGS: clear to auscultatio n bilaterally ABDOMEN: soft, nontender, non distended, bowel sounds present, normal, no organomegaly , no masses palpable NEUROLOGIC: nonfocal, motor stre ngth normal upper and lower extremities, sensory exam intact SKIN: warm and dry, no west picious lesions EXTREMITIES: no clubbing, cyanosi s, or edema MALE GENITOURINARY: not examined RECTAL EXAM: normal tone, no exte rnal hemorrhoids, no masses palpable, prostate normal, stool guaiac negative ORAL CAVITY: mucosa moist FOOT EXAM: Date: 08/10/2024 normal pinprick . normal pulse. normal light touch. PODIATRIC: normal pinprick, nor mal pulses, normal light touch Consultation Request Notes Referral Date Referring Provider Referred Provider Not es 08/10/2024 Hakeem Nixon Balaji ELEVATED BUN
--- OUTSIDE RECORDS SUMMARY | 2024-09-07 03:00 | XMS_ITS ---
Demographics Address [address] [place] [address] Mobile Preferred Language en Marital Status unmarried Faith Affiliation Unknown Race Ethnic Group or Author Organization Hakeem Nixon MD Address [address] [place], [place] [phone] Care Team Providers Care Barn Operator Name Role Phone Hakeem Nixon Primary Care Provider Results Component Value Reference Range Notes Potassium Reviewed date:09/07/2024 11:04:39 AM Interpretation: Performing Lab:[facility], [address] [place] [phone] Notes/Report: Potassium 4.5 3.3-5.1 mmol/L Blood Urea Nitrogen Reviewed date:09/07/2024 12:33:18 PM Interpretation: Performing Lab:[facility], [address] [place] [phone] Notes/Report: Blood Urea Nitrogen 17 9-16 mg/dL Creatinine Reviewed date:09/07/2024 12:30:10 PM Interpretation: Performing Lab:[facility], [address] [place] [phone] Notes/Report: Creatinine 1.34 0.5-1.4 mg/dL Estimated Glomerular Filt Rate 53 Chronic Kidney Disease: Estimated GFR < 60 mL/min/1.73m2 Severe Kidney Disease: Estimated GFR < 15 mL/min/1.73m2 REASON FOR VISIT BUN, CREATININE, POTASSIUM Encounters Encounter Location Date Provider Diagnosis Hakeem Nixon MD [address] [place], [place] [phone] 09/07/2024 Hakeem Nixon Essential hypertension I10 and Type 2 diabetes mellitus without complication, without long-term current use of insulin E11.9 Assessments Encounter Date Diagnosis (ICD Code) Assessment Notes Treatment Notes Treatment Clinical Notes Section Notes 09/07/2024 Essential hypertension (ICD-10 - I10) 09/07/2024 Type 2 diabetes mellitus without complication, without long-term current use of insulin (ICD-10 - E11.9) Plan Of Treatment Next Appt Details Provider Name:Hakeem Amy Caitie ieclarissa, 08/05/2025 08:00:00 AM, [address], [address], [place], [place], [phone], Provider Name:Hakeem P Kirashanique tricia, 08/12/2025 11:00:00 AM, [address], [address], [place], [place], [phone], Progress Notes * Annette SINGHkaranDOB:0 1955 (70 yo M)Acc No.[id number]:09/07/2024 Progress Note Patient: Rosas CARVAJAL Provider: Jayshree Nixon MD :1955 A ge:69 Y S ex:Male Date:09/07/2024 Address: [address] [facility] Subjective: * Chief Complaints: * 1 . BUN, CREATININE, POTASSIUM. * Medical History: Objective: * Vitals: Assessment: * Assessment: 1. E ssential hypertension - I10 (Primary) 2 . T ype 2 diabetes mellitus without complication, without long-term current use of insulin - E11.9 Plan: * Treatment: * Procedure Codes: 3 6415 VENIPUNCT, ROUTINE* * * The named appointment provid er may or may not be the originator of this progress note, and it is not deemed complete until electronically signed by the appointment provider. Sign off status: Pending * Provider: Jayshree Nixon MD Date: 0 09/07/2024 Generated for Kathy cleveland/Dameon/eTransmitting on: 1 08/29/2024 01:21 PM EST
--- OUTSIDE RECORDS SUMMARY | 2024-09-10 03:49 | XMS_ITS ---
Demographics Address [address] [place] [address] Mobile Preferred Language en Marital Status unmarried Spiritism Affiliation Unknown Race Ethnic Group or Author Organization Hakeem Nixon MD Address [address] [place] [phone] Care Team Providers Care Commission Sales Associate Name Role Phone Hakeem Nixon Primary Care Provider REASON FOR VISIT RF tramadol Medications Medication SIG (Take, Route, Fr equency, Duration) Notes Start Date End Date Status traMADol HCl 50 MG 1 tablet as needed O rally Once a day for 30 days 09/10/2024 Active Encounters Encounter Location Date Provider Diagnosis Hakeem Nixon MD [address] [place] [phone] 09/10/2024 Hakeem Nixon Acute right-sided low back pain with right-sided sciatica M54.41 Assessments Encounter Date Diagnosis (ICD Code) Assessment Notes Treatment Notes Treatment Clinical Notes Section Notes 09/10/2024 Acute right-sided low back pain with right-sided sciatica (ICD-10 - M54.41) Plan Of Treatment Medication Medication Name Sig Start Date Stop Date Notes traMADol HCl 50 MG 1 tablet as needed O rally Once a day for 30 days 09/10/2024 Next Appt Details Provider Name:Hakeem clarke, 08/05/2025 08:00:00 AM, [address], Suite [facility], [place], [place], [phone], Provider Name:Hakeem clarke, 08/12/2025 11:00:00 AM, [address], [address], [place], [place], [phone], Progress Notes * Her SAMANTHAisraelDOB:0 1955 (69 yo M)Acc No.[id number]:09/10/2024 Patient: Rosas CARVAJAL :1955 A ge:69 Y S ex:Male Address:[address] [place] [address] * Refills Refill traMADol HCl Tablet, 50 MG, Orally, 30 Tablet, 1 tablet as needed, Once a day, 30 days, Refills=2 * true * Date: Generated for Kathy cleveland/Dameon/Niraliitting on: 08/29/2024 01:22 PM EST
--- OUTSIDE RECORDS SUMMARY | 2024-10-27 10:50 | XMS_ITS ---
Demographics Address [address] [place] [address] Mobile Preferred Language en Marital Status unmarried Rastafarian Affiliation Unknown Race Ethnic Group or Author Organization Hakeem Nixon MD Address [address] [place] [phone] Care Team Providers Care Email Campaign Specialist Name Role Phone Hakeem Nixon Primary Care Provider [phone] REASON FOR VISIT Rf Tramadol and Atorvastatin [...] Hakeem Nixon MD [address] [place] [phone] 10/27/2024 Hakeem Nixon Acute right-sided low back [...] 08:00:00 AM, [address], [address], [place], [place], [phone], Provider Name:Hakeem Blood ier, 08/12/2025 11:00:00 AM, [address], [address], [place], [place], [phone], Progress Notes * ARELY BERNARDORosas DeshpandeDOB:0 1955 (69 yo M)Acc No.[id number]:10/27/2024 Patient: Keerthi BERNARDOA Rosas :1955 A ge:69 Y S ex:Male Address:[address] [place] [address] * Refills Refill traMADol HCl Tablet, 50 MG, Orally, 30 Tablet, 1 tablet as needed, Once a day, 30 days, Refills=2 Refill Atorvastatin Calcium Tablet, 40 MG, Orally, 30, TAKE 1 TABLET BY MOUTH EVERY DAY, Once a day, 30 days, Refills=3 * true * Date: Generated for Kathy cleveland/Dameon/Phu on: 08/29/2024 01:22 PM EST
--- OUTSIDE RECORDS SUMMARY | 2024-12-08 06:00 | XMS_ITS ---
Demographics Address [address] [place] [address] Mobile Preferred Language en Marital Status unmarried Caodaism Affiliation Unknown Race Ethnic Group or Author Organization Hakeem Nixon MD Address [address] [place] [phone] Care Team Providers Care Sole Skiver Name Role Phone Hakeem Nixon Primary Care Provider REASON FOR VISIT refill Medications Medication SIG (Take, Route, Fr equency, Duration) Notes Start Date End Date Status traMADol HCl 50 MG 1 tablet as needed O rally Once a day for 30 days 12/08/2024 Active Encounters Encounter Location Date Provider Diagnosis Hakeem Nixon MD [address] [place] [phone] 12/08/2024 Hakeem Nixon Acute right-sided low back pain with right-sided sciatica M54.41 Assessments Encounter Date Diagnosis (ICD Code) Assessment Notes Treatment Notes Treatment Clinical Notes Section Notes 12/08/2024 Acute right-sided low back pain with right-sided sciatica (ICD-10 - M54.41) Plan Of Treatment Medication Medication Name Sig Start Date Stop Date Notes traMADol HCl 50 MG 1 tablet as needed O rally Once a day for 30 days 12/08/2024 Next Appt Details Provider Name:Hakeem clarke, 08/05/2025 08:00:00 AM, [address], [address] [facility], [place], [place], [phone], Provider Name:Hakeem clarke, 08/12/2025 11:00:00 AM, [address], [address], [place], [place], [phone], Progress Notes * Annette SINGHkaranDOB:0 1955 (69 yo M)Acc No.[id number]:12/08/2024 Patient: Rosas CARVAJAL :1955 A ge:69 Y S ex:Male Address:[address] [place] [address] * Refills Refill traMADol HCl Tablet, 50 MG, Orally, 30, 1 tablet as needed, Once a day, 30 days, Refills=2 * true * Date: Generated for Kathy cleveland/Dameon/Phu on: 08/29/2024 01:21 PM EST
--- OUTSIDE RECORDS SUMMARY | 2025-02-11 03:00 | XMS_ITS ---
Demographics Address [address] [place] [address] Mobile Preferred Language en Marital Status unmarried Taoist Affiliation Unknown Race Ethnic Group or Author Organization Hakeem Nixon MD Address [address] [place], [place] [phone] Care Team Providers Care Industrial Organization Manager Name Role Phone Hakeem Nixon Primary Care Provider Results Component Value Reference Range Notes Liver Panel Reviewed date:02/11/2025 03:21:09 PM Interpretation: Performing Lab:[address] [phone] Notes/Report: Bilirubin Total 0.3 0.0-1.0 mg/dL Bilirubin Direct 0.1 0.0-0.5 mg/dL Aspartate Amino Transferase 27 5-37 U/L Alanine Aminotransferase 24 0-40 U/L Total Protein 7.0 6.5-8.0 g/dL Albumin Level 4.3 3.5-5.0 g/dL Alkaline Phosphatase 126 39-117 U/L Glucose Fasting Reviewed date:02/11/2025 07:55:55 PM Interpretation: Performing Lab:[address] [phone] Notes/Report: Glucose Fasting 115 60-99 mg/dL A fasting glucose from 100-125 mg/dl is considered impaired (pre-diabetes). Lipid Panel with Reflex Reviewed date:02/11/2025 03:19:52 PM Interpretation: Performing Lab:[facility], [address] [place] [phone] Notes/Report: Triglycerides 101 <150 mg/dL Desirable Triglyceride: less than 150 mg/dL Borderline High Triglyceride 150-199 mg/dL High Triglyceride: 200-499 mg/dL Very High Triglyceride: greater than or equal to 5OO mg/dL Cholesterol 111 <200 mg/dL Desirable Cholesterol: less than 200 mg/dL Borderline High Cholesterol: 200-239 mg/dL High Cholesterol: greater than 239 mg/dL LDL Cholesterol Calculated 57 <100 mg/dL Desirable LDL: less than 100 mg/dL Near Optimal/Above Optimal LDL: 110-129 mg/dL Borderline High LDL: 130-159 mg/dL High LDL: 160-189 mg/dL Very High LDL: greater than or equal to 190 mg/dL HDL Cholesterol 34 >40 mg/dL Desirable HDL: greater than 40 mg/dL Note: This HDL assay may give artificially low results in patients with liver disease. Hemoglobin A1c Reviewed date:02/11/2025 03:21:27 PM Interpretation: Performing Lab:[facility], [address] [place] [phone] Notes/Report: Hemoglobin A1c % 6.9 <6.0 % Hemoglobin A1C Reference Range Adults: 4.8 - 6.0 % Non diabetic: < 6.0 % Goal: < 7.0 % Additional Action Suggested: > 8.0 % Note: Hemoglobin A1c results are invalid for patients with abnormal amounts of HbF. Blood transfusions may impact the HbA1c concentration in the patient sample. Estimated Average Glucose 151 eAG = Estimated average glucose which is %A1C expressed as average glucose, using the formula of the E9T-Qbtghyf Average Glucose study (ADAG), Diabetes Care, Vol.31,#8, Feb. 2007 REASON FOR VISIT FASTING LIPIDS Encounters Encounter Location Date Provider Diagnosis Hakeem Nixon MD [address] [place] [address] [address] [place], [place] [phone] 02/11/2025 Hakeem Nixon Type 2 diabetes mellitus without complication, without long-term current use of insulin E11.9 and CAD (coronary artery disease) I25.10 Assessments Encounter Date Diagnosis (ICD Code) Assessment Notes Treatment Notes Treatment Clinical Notes Section Notes 02/11/2025 Type 2 diabetes mellitus without complication, without long-term current use of insulin (ICD-10 - E11.9) 02/11/2025 CAD (coronary artery disease) (ICD-10 - I25.10) Plan Of Treatment Next Appt Details Provider Name:Hakeem Blood ier, 08/05/2025 08:00:00 AM, [address], [address], [place], [place], [phone], Provider Name:Hakeem Blood ier, 08/12/2025 11:00:00 AM, [address], [address], [place], [place], [phone], Progress Notes * Rosas SINGHDOB:0 1955 (70 yo M)Acc No.[id number]:02/11/2025 Progress Note Patient: Rosas CARVAJAL Provider: Jayshree Nixon MD :1955 A ge:69 Y S ex:Male Date:02/11/2025 Address: [address] [facility] Subjective: * Chief Complaints: * 1 . FASTING LIPIDS. * Medical History: Objective: * Vitals: Assessment: * Assessment: 1. T ype 2 diabetes mellitus without complication, without long-term current use of insulin - E11.9 (Primary) 2 . C AD (coronary artery disease) - I25.10 Plan: * Treatment: 2. C AD (coronary artery disease) L AB: Liver Panel (Collection Date & Time - 02/11/2025 08:00 AM) L AB: Glucose Fasting (Collection Date & Time - 02/11/2025 08:00 AM) L AB: Lipid Panel with Reflex (Collection Date & Time - 02/11/2025 08:00 AM) L AB: Hemoglobin A1c (Collection Date & Time - 02/11/2025 08:00 AM) * Procedure Codes: 3 6415 VENIPUNCT, ROUTINE* * * The named appointment provid er may or may not be the originator of this progress note, and it is not deemed complete until electronically signed by the appointment provider. Sign off status: Pending * Provider: Jayshree Nixon MD Date: 0 02/11/2025 Generated for Kathy cleveland/Dameon/eTransmitting on: 1 08/29/2024 01:22 PM EST
--- OUTSIDE RECORDS SUMMARY | 2025-02-22 09:54 | XMS_ITS ---
Demographics Address [address] [place] [address] Mobile Preferred Language en Marital Status unmarried Anabaptist Affiliation Unknown Race Ethnic Group or Author Organization Hakeem Nixon MD Address [address] [place] [phone] Care Team Providers Care Wildland Fire Operations Specialist Name Role Phone Hakeem Nixon Primary Care Provider REASON FOR VISIT refill Medications Medication SIG (Take, Route, Frequency, Duration) Notes Start Date End Date Status Metoprolol Tartrate 50 MG TAKE 1 TABLET BY MOUTH TWICE A DAY WITH FOOD for 90 days Active Encounters Encounter Location Date Provider Diagnosis Hakeem Nixon MD [address] [facility] [address] [place] [phone] 02/22/2025 Hakeem Nixon Essential hypertension I10 Assessments [...] Details Provider Name:Hakeem clarke, 08/05/2025 08:00:00 AM, [address] [place] [address], [address], [phone], Provider Name:Hakeem clarke, 08/12/2025 11:00:00 AM, [address] [place] [address], [address], [phone], Progress Notes * Rosas SINGHDOB:0 1955 (69 yo M)Acc No.[id number]:02/22/2025 Patient: Rosas CARVAJAL :1955 A ge:69 Y S ex:Male Address:[address] [place] [address] * Refills Refill Metoprolol Tartrate Tablet, 50 MG, 180, TAKE 1 TABLET BY MOUTH TWICE A DAY WITH FOOD, 90 days, Refills=3 * true * Date: Generated for Kathy cleveland/Dameon/Niraliitting on: 1 08/29/2024 01:21 PM EST
--- OUTSIDE RECORDS SUMMARY | 2025-02-26 05:00 | XMS_ITS ---
Demographics Address [address] [place] [address] Mobile Preferred Language en Marital Status unmarried Moravian Affiliation Unknown Race Ethnic Group or Author Organization Hakeem Nixon MD Address [address] [place], [place] [id number] Care Team Providers Care Sanforizer Name Role Phone Hakeem Nixon Primary Care Provider [phone] Allergies No Known Allergies REASON FOR VISIT [...] Date Provider Diagnosis Hakeem Nixon MD [address] [place], [place] [phone] 02/26/2025 Hakeem Nixon Plan Of Treatment Next Appt Details Provider Name:Hakeem Blood ier, 08/05/2025 08:00:00 AM, [address] [place] [address], [address], [place], [place], [phone], Provider Name:Hakeem Blood ier, 08/12/2025 11:00:00 AM, [address] [facility], [address], [place], [id number], Progress Notes * Rosas SINGHDOB:0 1955 (70 yo M)Acc No.[id number]:02/26/2025 Progress Notes Patient: Rosas CARVAJAL Provider: Jayshree Nixon MD :1955 A ge:69 Y S ex:Male Date:02/26/2025 Address: [address] [id number] Subjective: * Chief Complaints: * 1 [...] 02/26/2025 Generated for Kathy cleveland/Dameon/Phu on: 1 08/29/2024 01:23 PM EST History and Physical Notes * HPI (History of Present Illness) Category Sub-Category Detail Notes Category Not es Symptom(s) patient is a 69 yo male here for 6 monthfollow up visit
--- OUTSIDE RECORDS SUMMARY | 2025-04-01 05:37 | XMS_ITS ---
Demographics Address [address] [place] [address] Mobile Preferred Language en Marital Status unmarried Episcopal Affiliation Unknown Race Ethnic Group or Author Organization Hakeem Nixon MD Address [address] [place] [phone] Care Team Providers Care Cigar Head Holer Name Role Phone Hakeem Nixon Primary Care Provider REASON FOR VISIT REFILL TRAMADOL Medications Medication SIG (Take, Route, Fr equency, Duration) Notes Start Date End Date Status traMADol HCl 50 MG TAKE 1 TABLET BY DELFINA TH EVERY DAY NEEDED FOR 30 DAYS ORALLY ONCE A DAY Orally Once a day for 30 days 04/01/2025 Active Encounters Encounter Location Date Provider Diagnosis Hakeem Nixon MD [address] [facility] [address] [place] [phone] 04/01/2025 Hakeem Nixon Plan Of Treatment Medication Medication Name Sig Start Date Stop Date Notes traMADol HCl 50 MG TAKE 1 TABLET BY DELFINA TH EVERY DAY NEEDED FOR 30 DAYS ORALLY ONCE A DAY Orally Once a day for 30 days 04/01/2025 Next Appt Details Provider Name:Hakeem clarke, 08/05/2025 08:00:00 AM, [address] [place] [address], [place] [address], [place], [place], [phone], Provider Name:Hakeem clarke, 08/12/2025 11:00:00 AM, [address] [place] [address], [place] [address], [place], [place], [phone], Progress Notes * Rosas SINGHDOB:0 1955 (70 yo M)Acc No.[id number]:04/01/2025 Patient: Rosas CARVAJAL :1955 A ge:70 Y S ex:Male Address:[address] [place] [address] * Refills Refill traMADol HCl Tablet, 50 MG, Orally, 30 Tablet, TAKE 1 TABLET BY MOUTH EVERY DAY NEEDED FOR 30 DAYS ORALLY ONCE A DAY, Once a day, 30 days, Refills=2 * true * Date: Generated for Kathy cleveland/Dameon/Phu on: 08/29/2024 01:22 PM EST
--- OUTSIDE RECORDS SUMMARY | 2025-06-28 13:22 | XMS_ITS | Patient Health Record ---
Demographics Address [address] [place] [address] Preferred Language en Marital Status Unknown Sabianism Affiliation Unknown Race Unknown Ethnic Group or Author Organization [facility] Address [address] [place] [address] Support Name Relationship Address Phone ARLENE MCGEE Emergency Contact [address] [place] [address] WILLIS SINGH Guarantor Unknown [phone] Care Team Providers Care Food Equipment Service Technician Name Role Phone Hakeem Nixon MD Primary Care Provider Yoseph Gonzales Jr [phone] Allergies No Known Allergies Reason For Referral No Information Medications Medication SIG (Take, Route, Frequency, Duration) Notes Start Date End Date Status MiraLax (colon prep) 8.3 ounce (238) grams mixed with Gatorade or Crystal Light orally begin at 5:00 p.m. the day before the procedure; Duration: 1 day 09/30/2023 Active amLODIPine Besylate 10 MG Tablet Oral; Duration: 90 Active Terbinafine HCl 250 MG Tablet TAKE 1 TABLET BY MOUTH EVERY DAY FOR 90 DAYS Oral; Duration: 90 Active Aspirin Low Dose 81 MG Tablet Delayed Release TAKE 1 TABLET BY MOUTH EVERY DAY Oral; Duration: 90 Active Metoprolol Tartrate 50 MG Tablet Oral; Duration: 90 Active Lisinopril 20 MG Tablet Orally Once a day Active Atorvastatin Calcium 40 MG Tablet TAKE 1 TABLET BY MOUTH EVERY DAY FOR 90 DAYS Oral; Duration: 90 Active traMADol HCl 50 MG Tablet Orally as needed Active Immunizations Vaccine Route Administration Date Status Comme nts Influenza Unknown 04/23/2023 Administered Social History Tobacco Use: Social History Observation Description Date Details (start date - stop date) Current Smoker NA - NA Social History Drugs/Alcohol: Social Info Question Answer Notes Alcohol Screen Did you have a drink containing alcohol in the past year? Yes How often did you have a drink containing alcohol in the past year? 2 to 3 times a week (3 points) How many drinks did you have on a typical day when you were drinking in the past year? 1 or 2 drinks (0 point) Points 3 Interpretation Negative Tobacco Use: Social Info Question Answer Notes Tobacco Use/Smoking Patient is a current smoker How often do you smoke cigarettes? every day How many cigarettes a day do you smoke? 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 Problems Problem Type SNOMED Code ICD Code Onset Dates Problem Status W/U Status Risk Notes Problem Colon cancer screening (488535833) Colon cancer screening (Z12.11) Active confirmed Problem Pre-procedure evaluation check (794418681) Encounter for other preprocedural examination (Z01.818) Active confirmed Problem Long-term current use of antiplatelet drug (105239961586235 ) Long-term use of aspirin therapy (Z79.82) Active confirmed Plan Of Treatment Future Test Test Name Order Date COLONOSCOPY 08/29/2017 COLONOSCOPY 09/30/2023 Insurance Providers Payer Name Payer Address Payer Phone Subscriber Number Group Number Insured Name Patient Relationship to Insured Coverage Start Date Coverage End Date [facility] [address] [place], [place] [id number] WILLSI SINGH Self - patient is the insured Medical (General) History Medical History History ICD Code Hypertension Back pain/DJD Aortic stenosis status post aVR, non-rheumatic mitral stenosis, coronary disease Surgical History Surgery Date(Month/Year) Hernia repair Cardiac catheterization 07/25: Nonobstruc tive coronary disease
--- OUTSIDE RECORDS SUMMARY | 2025-06-28 13:22 | XMS_ITS | Patient Health Record ---
Demographics Address [address] [place] [address] Mobile Preferred Language en Marital Status unmarried Gnosticism Affiliation Unknown Race Ethnic Group or Author Organization Hakeem Nixon MD Address [address] [place], [place] [phone] Care Team Providers Care Market Research Consultant Name Role Phone Hakeem Nixon Primary Care Provider Allergies No Known Allergies Results Component Value Reference Range Notes Complete Blood Count Auto Di ff Reviewed date:08/04/2024 01:13:03 PM Interpretation: Performing Lab:[facility], [address] [place] [phone] Notes/Report: White Blood Count 8.3 4.8-10.8 X10*3/uL [...] NRBC Abs Auto 0.000 0.0-0.012 X10*3/uL Comprehensive [place]. Panel Fa Reviewed date:08/10/2024 02:18:47 PM Interpretation:08-10-24 Performing Lab:[address] [phone] Notes/Report: Sodium 144 135-145 mmol/L Potassium 5.2 [...] Panel Reviewed date:08/04/2024 12:24:02 PM Interpretation: Performing Lab:[address] [address] Notes/Report: Triglycerides 107 <150 mg/dL Desirable Triglyceride: [...] (Free>4and<10) Reviewed date:08/04/2024 12:40:01 PM Interpretation: Performing Lab:[facility], [address] [place] [phone] Notes/Report: PSA,Total (Free>4and<10) 0.77 0.00-4.00 ng/mL A [...] Random Reviewed date:08/04/2024 01:00:09 PM Interpretation: Performing Lab:[facility], [address] [place] [phone] Notes/Report: Creatinine Urine 82.52 Microalbumin Urine 28.0 Microalbum/Creatinine Ratio Ur 33.9 <30 ug/mg cr Albumin/Creatinine Ratio Reference Ranges: Normal: < 30 ug/mg creatinine Microalbuminuria: 30 - 300 ug/mg creatinine Clinical Albuminuria: > 300 ug/mg creatinine Hemoglobin A1c Reviewed date:08/04/2024 12:30:48 PM Interpretation: Performing Lab:[facility], [address] [place] [phone] Notes/Report: Hemoglobin A1c % 6.8 <6.0 % [...] average glucose, using the formula of the D1H-Jszgduz Average Glucose study (ADAG), Diabetes Care, Vol.31,#8, Feb. 2007 UA ClnCatch+Micro w/rflx Cul t Reviewed date:08/04/2024 01:26:51 PM Interpretation: Performing Lab:[address] [phone] Notes/Report: Urine, Clean Catch Color Urine Yellow Appearance Urine Clear PH 6.5 5.0-9.0 Glucose Urine UA Negative Negative mg/dL Urine Blood Negative Negative Specific Irene - Urine 1.015 1.005-1.025 Urine Protein Negative Neg-Trace mg/dL Urine Ketones Negative Negative mg/dL Nitrite Urine Negative Negative Leukocyte Esterase Urine Negative Negative RBC Urine 0-2 0-2 /HPF WBC Urine 0-5 0-5 /HPF Squamous Epithelial Cell Urine 0-2 0-2 /HPF Bacteria Urine None Seen None Seen Hyaline Casts Urine 0-2 0-2 /LPF Potassium Reviewed date:09/07/2024 11:04:39 AM Interpretation: Performing Lab:[facility], [address] [place] [phone] Notes/Report: Potassium 4.5 3.3-5.1 mmol/L Blood Urea Nitrogen Reviewed date:09/07/2024 12:33:18 PM Interpretation: Performing Lab:[facility], [address] [place] [phone] Notes/Report: Blood Urea Nitrogen 17 9-16 mg/dL Creatinine Reviewed date:09/07/2024 12:30:10 PM Interpretation: Performing Lab:[facility] [address] Notes/Report: Creatinine 1.34 0.5-1.4 mg/dL Estimated Glomerular Filt Rate 53 Chronic Kidney Disease: Estimated GFR < 60 mL/min/1.73m2 Severe Kidney Disease: Estimated GFR < 15 mL/min/1.73m2 Liver Panel Reviewed date:02/11/2025 03:21:09 PM Interpretation: Performing Lab:[address] [address] Notes/Report: Bilirubin Total 0.3 0.0-1.0 mg/dL Bilirubin Direct 0.1 0.0-0.5 mg/dL Aspartate Amino Transferase 27 5-37 U/L Alanine Aminotransferase 24 0-40 U/L Total Protein 7.0 6.5-8.0 g/dL Albumin Level 4.3 3.5-5.0 g/dL Alkaline Phosphatase 126 39-117 U/L Glucose Fasting Reviewed date:02/11/2025 07:55:55 PM Interpretation: Performing Lab:[facility], [address] [place] [phone] Notes/Report: Glucose Fasting 115 60-99 mg/dL A fasting glucose from 100-125 mg/dl is considered impaired (pre-diabetes). Lipid Panel with Reflex Reviewed date:02/11/2025 03:19:52 PM Interpretation: Performing Lab:[address] [phone] Notes/Report: Triglycerides 101 <150 mg/dL Desirable Triglyceride: [...] A1c Reviewed date:02/11/2025 03:21:27 PM Interpretation: Performing Lab:[facility], [address] [place] [phone] Notes/Report: Hemoglobin A1c % 6.9 <6.0 % [...] average glucose, using the formula of the G2G-Bwwxhbu Average Glucose study (ADAG), Diabetes Care, Vol.31,#8, Feb. 2007 US renal doppler Reviewed date:01/14/2025 05:16:26 PM Interpretation: Performing Lab: Notes/Report: [address] [address] Ultrasound Report Signed Patient: Rosas Kirkland MR#: [id number] : 1955 Acct:[id number] Age/Sex: 69 / M ADM Date: 01/06/25 Loc: . Attending Dr: Gustabo Rodarte MD Ordering Physician: Gustabo Rodarte MD Date of Service: 01/06/25 Procedure(s): US renal doppler Accession Number(s): [id number] cc: Hakeem Nixon MD; Gustabo Rodarte MD [...] 01/06/25 1201 DD/ 0900 TD/TT: 01/06/25 0937 Vamp Stitcher: [address] [address] Ultrasound Report Signed Patient: Rosas Kirkland MR#: [id number] : 1955 Acct:[id number] Age/Sex: 69 / M ADM Date: 01/06/25 Loc: HO.US Attending Dr: Gustabo Rodarte MD Ordering Physician: Gustabo Rodarte MD Date of Service: 01/06/25 Procedure(s): US don al doppler Accession Number(s): [id number] cc: Hakeem Nixon MD; Gustabo Rodarte MD [...] 01/06/25 1201 DD/ 0900 TD/TT: 01/06/25 0937 Vamp Stitcher: US renal BI Reviewed date:01/14/2025 05:16:36 PM Interpretation: Performing Lab: Notes/Report: [address] [address] Ultrasound Report Signed Patient: Rosas Kirkland MR#: [id number] : 1955 Acct:[id number] Age/Sex: 69 / M ADM Date: 01/06/25 Loc: HO.US Attending Dr: Gustabo Rodarte MD Ordering Physician: Gustabo Rodarte MD Date of Service: 01/06/25 Procedure(s): US renal BI Accession Number(s): [id number] cc: Hakeem Nixon MD; Gustabo Rodarte MD [...] 01/06/25 1201 DD/ 0900 TD/TT: 01/06/25 0937 Vamp Stitcher: [address] [address] Ultrasound Report Signed Patient: Rosas Kirkland MR#: [id number] : 1955 Acct:[id number] Age/Sex: 69 / M ADM Date: 01/06/25 Loc: HO.US Attending Dr: Gustabo Rodarte MD Ordering Physician: Gustabo Rodarte MD Date of Service: 01/06/25 Procedure(s): US don Morales Accession Number(s): [id number] cc: Hakeem Nixon MD; Gustabo Rodarte MD [...] 01/06/25 1201 DD/ 0900 TD/TT: 01/06/25 0937 Vamp Stitcher: Chikis Hinojosa Reviewed date:02/11/2025 03:10:15 PM Interpretation: Performing Lab:[facility], [address] [place] [phone] Notes/Report: Chikis Hinojosa See Note Specimen held untested for 24 hours; Call to request Chemistry testing. Electrolytes Reviewed date:04/01/2025 04:26:32 PM Interpretation: Performing Lab:[address] [address] Notes/Report: Sodium 142 135-145 mmol/L Potassium 4.3 3.3-5.1 mmol/L Chloride 108 96-108 mmol/L Carbon Dioxide 26 22-29 mmol/L Anion Gap 12 12-20 Blood Urea Nitrogen Reviewed date:04/01/2025 04:26:08 PM Interpretation: Performing Lab:[facility], [address] [place] [phone] Notes/Report: Blood Urea Nitrogen 17 9-16 mg/dL Creatinine Reviewed date:04/01/2025 12:39:00 PM Interpretation: Performing Lab:[facility], [address] [place] [phone] Notes/Report: Creatinine 1.46 0.5-1.4 mg/dL Estimated Glomerular Filt Rate 48 Chronic Kidney Disease: Estimated GFR < 60 mL/min/1.73m2 Severe Kidney Disease: Estimated GFR < 15 mL/min/1.73m2 Reason For Referral Reason ELEVATED BUN Diagnosis [...] 90 days Active traMADol HCl 50 MG TAKE 1 TABLET BY DELFINA TH EVERY DAY NEEDED FOR 30 DAYS ORALLY ONCE A DAY Orally Once a day for 30 days 04/01/2025 Active Aspirin Low Dose 81 MG TAKE 1 TABLET BY MOUTH EVERY DAY for 90 Active traMADol HCl 50 MG 1 tablet [...] W/U Status Risk Notes Problem Erectile dysfunction (161508616) Erectile dysfunction (N52.9) Active confirmed Problem 8317562 Arthritis (M19.90) Active confirmed Problem 120893497 Tubular adenoma of colon (D12.6) Active confirmed Problem 97384130 Essential hypertension (I10) Active confirmed Problem 06363998 Heart murmur (R01.1) Active confirmed Problem Induratio penis plastica (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) Peyronie disease (N48.6) Active confirmed Problem Current smoker (45672829) Current smoker (F17.200) Active confirmed Problem 67447041 Sciatica of left side (M54.32) Active confirmed Problem 65646891 Aortic valve stenosis, unspecified etiology (I35.0) Active confirmed Problem Coronary artery disease (44568429) CAD (coronary artery disease) (I25.10) Active confirmed Problem Sciatica (20917383) Acute right-sided low back pain with right-sided sciatica (M54.41) Active confirmed Problem 5722519 Peyronie's disea se (N48.6) Active confirmed Problem 900084381 Type 2 diabetes mellitus without complication, without long-term current use of insulin (E11.9) Active confirmed Problem 886942 Valvular heart disease (I38) Active confirmed Problem 117390530 Anticoagulation adequate (Z79.01) Active confirmed Problem 2591164994555 S/P AVR (aortic valve replacement) (Z95.2) Active [...] Hakeem Nixon MD [address] [place] [id number] 08/04/2024 Hakeem Nixon Blood tests for routine general physical examination Z00.00 ; Essential hypertension I10 and Type 2 diabetes mellitus without complication, without long-term current use of insulin E11.9 Hakeem Nixon MD [address] [place] [id number] 09/07/2024 Hakeem Nixon Essential hypertension I10 and Type 2 diabetes mellitus without complication, without long-term current use of insulin E11.9 Hakeem Nixon MD [address] [place] [id number] 02/11/2025 Hakeem Nixon Type 2 diabetes mellitus without complication, without long-term current use of insulin E11.9 and CAD (coronary artery disease) I25.10 Hakeem Nixon MD [address] [place] [id number] 08/10/2024 Hakeem Nixon Type 2 diabetes mellitus without complication, without long-term current use of insulin E11.9 ; Erectile dysfunction N52.9 ; Acute right-sided low back pain with right-sided sciatica M54.41 ; Elevated BUN R79.9 ; Essential hypertension I10 ; Colon cancer screening Z12.11 ; Depression screening Z13.31 and CAD (coronary artery disease) I25.10 Hakeem Nixon MD [address] [place] [id number] 09/10/2024 Hakeem Nixon Acute right-sided lo w back pain with right-sided sciatica M54.41 Hakeem Nixon MD [address] [place] [id number] 10/27/2024 Hakeem Nixon Acute right-sided lo w back pain with right-sided sciatica M54.41 and CAD (coronary artery disease) I25.10 Hakeem Nixon MD [address] [place] [id number] 12/08/2024 Hakeem Nixon Acute right-sided lo w back pain with right-sided sciatica M54.41 Hakeem Nixon MD [address] [place] [id number] 02/22/2025 Hakeem Nixon Essential hypertension I10 Hakeem Nixon MD [address] [place] [id number] 04/01/2025 Hakeem Nixon Assessments Encounter Date Diagnosis (ICD Code) Assessment [...] R79.9) referral to nephrology/ REFERRAL FAXED TO [facility] FOR SCHEDULING 08/10/2024 Essential hypertension (ICD-10 - I10) stable, will continue current regiment 08/10/2024 Colon cancer screening (ICD-10 - Z12.11) guaiac negative 08/10/2024 Depression screening (ICD-10 - Z13.31) negative screen 08/10/2024 CAD (coronary artery disease) (ICD-10 - I25.10) stable, continue current regiment Plan Of Treatment Next Appt Details Provider Name:Hakeem clarke, 08/05/2025 08:00:00 AM, [address] [place] [address], [address], [place], [place], [phone], Provider Name:Hakeem Reyes Kirashanique hair, 08/12/2025 11:00:00 AM, [address], [address], [place], [phone], Insurance Providers Payer Name Payer Address Payer Phone Subscriber Number Group Number Insured Name Patient Relationship to Insured Coverage Start Date Coverage End Date [employer] E [address] [place], [place] [id number] Rosas Kirkland Self - patient is the insured MEDICARE [facility] [address] [place] [address] [id number] Rosas Kirkland Self - patient is the insured Medical (General) History Medical History History ICD Code colonoscopy 12/2009 w/Dr. Choudhary fford - repeat 5 years; colonoscopy done on 04/04/18 due in 5 years NEEDS YEARLY ECHO - done 06/26/17, done 02/2020
--- OUTSIDE RECORDS SUMMARY | 2025-06-28 13:23 | XMS_ITS | Clinical Summary ---
Demographics Address [address] [place] [address] Work Phone Preferred Language es Marital Status Unknown Congregational Affiliation Unknown Race Other Race Ethnic Group Unknown Author Organization [facility] Address [address] [facility] [address] [place] [address] Care Team Providers Care Sheriff Name Role Phone Unavailable Primary Care Provider [...]
[2025-06-28 13:29] LABS: Appearance Urine Clear; Glucose Urine UA Negative (Negative); PH 5.0 (5.0-9.0); Specific Gravity - Urine 1.015 (1.005-1.025)
[2025-06-28 13:42] LABS: Anion Gap 13 (12-20); Blood Urea Nitrogen 22 mg/dL (9-16); Carbon Dioxide 26 mmol/L (22-29); Chloride 106 mmol/L (96-108); Estimated Glomerular Filt Rate 36; Potassium 5.0 mmol/L (3.3-5.1); Sodium 140 mmol/L (135-145)
[2025-06-28 13:48] LABS: Protein/Creatinine Ratio, Ur 0.08 (<0.2); Total Protein Urine Random 16 mg/dL (<12)
== END 2025-06-28 10:47 | disposition home or self-care (01) ==
LOC: HO.10HDL 10:46
PROVIDERS: Visit Provider Internal Medicine Nephrology
DX: I12.9 Hypertensive chronic kidney disease with stage 1 through stage 4 chronic kidney disease, or unspecified chronic kidney disease (principal); N18.31 Chronic kidney disease, stage 3a; Z13.1 Encounter for screening for diabetes mellitus
CPT/HCPCS: 36415; 80051; 81003; 82565; 82570; 83036; 84156; 84520

== ENCOUNTER 2025-06-30 11:26 | Outpatient (AMB) | payer MEDICARE, SELFPAY ==
--- OUTSIDE RECORDS SUMMARY | 2024-08-04 03:30 | XMS_ITS ---
Demographics Address [address] [place] [address] Mobile Preferred Language en Marital Status unmarried Holiness Affiliation Unknown Race Ethnic Group or Author Organization Hakeem Nixon MD Address [address] [place], [place] [phone] Care Team Providers Care Olive Grower Name Role Phone Hakeem Nixon Primary Care Provider Results Component Value Reference Range Notes Complete Blood Count Auto Di ff Reviewed date:08/04/2024 01:13:03 PM Interpretation: Performing Lab:[facility], [address] [place] [phone] Notes/Report: White Blood Count 8.3 4.8-10.8 X10*3/uL [...] NRBC Abs Auto 0.000 0.0-0.012 X10*3/uL Comprehensive [place]. Panel Fa Reviewed date:08/10/2024 02:18:47 PM Interpretation:08-10-24 Performing Lab:[address] [phone] Notes/Report: Sodium 144 135-145 mmol/L Potassium 5.2 [...] Panel Reviewed date:08/04/2024 12:24:02 PM Interpretation: Performing Lab:[address] [phone] Notes/Report: Triglycerides 107 <150 mg/dL Desirable Triglyceride: [...] (Free>4and<10) Reviewed date:08/04/2024 12:40:01 PM Interpretation: Performing Lab:[address] [phone] Notes/Report: PSA,Total (Free>4and<10) 0.77 0.00-4.00 ng/mL A [...] Random Reviewed date:08/04/2024 01:00:09 PM Interpretation: Performing Lab:[facility], [address] [place] [phone] Notes/Report: Creatinine Urine 82.52 Microalbumin Urine 28.0 Microalbum/Creatinine Ratio Ur 33.9 <30 ug/mg cr Albumin/Creatinine Ratio Reference Ranges: Normal: < 30 ug/mg creatinine Microalbuminuria: 30 - 300 ug/mg creatinine Clinical Albuminuria: > 300 ug/mg creatinine Hemoglobin A1c Reviewed date:08/04/2024 12:30:48 PM Interpretation: Performing Lab:[facility], [address] [place] [phone] Notes/Report: Hemoglobin A1c % 6.8 <6.0 % [...] average glucose, using the formula of the Y6H-Fixhsfp Average Glucose study (ADAG), Diabetes Care, Vol.31,#8, Feb. 2007 UA ClnCatch+Micro w/rflx Cul t Reviewed date:08/04/2024 01:26:51 PM Interpretation: Performing Lab:[facility], [address] [place] [phone] Notes/Report: Urine, Clean Catch Color Urine Yellow Appearance Urine Clear PH 6.5 5.0-9.0 Glucose Urine UA Negative Negative mg/dL Urine Blood Negative Negative Specific [place] - Urine 1.015 1.005-1.025 Urine Protein Negative [...] Location Date Provider Diagnosis Hakeem Nixon MD [address] [place] [address] Drive [address] [place], [place] [phone] 08/04/2024 Hakeem Nixon Blood tests for routine [...] 08:00:00 AM, [address], [address], [place], [place], [phone], Provider Name:Hakeem Blood ier, 08/12/2025 11:00:00 AM, [address], [address], [place], [place], [phone], Progress Notes * Rosas SINGHDOB:0 1955 (70 yo M)Acc No.[id number]:08/04/2024 Progress Note Patient: Rosas CARVAJAL Provider: Jayshree Nixon MD :1955 A ge:69 Y S ex:Male Date:08/04/2024 Address: [address] [facility] Subjective: * Chief Complaints: * 1 [...] - 08/04/2024 08:30 AM) L AB: Comprehensive [place]. Panel Fast (Collection Date & Time - [...] - 08/04/2024 08:30 AM) L AB: Comprehensive [place]. Panel Fast (Collection Date & Time - [...] MD Date: 0 08/04/2024 Generated for Kathy cleveland/Dameon/Niraliitting on: 08/31/2024 11:32 AM EST
--- OUTSIDE RECORDS SUMMARY | 2024-08-10 08:45 | XMS_ITS ---
Demographics Address [address] [place] [address] Mobile Preferred Language en Marital Status unmarried Synagogue Affiliation Unknown Race Ethnic Group or Author Organization Hakeem Nixon MD Address [address] [place], [place] [id number] Care Team Providers Care Scientific Systems Analyst Name Role Phone Hakeem Nixon Primary Care Provider Allergies No Known Allergies Reason For Referral [...] Lisinopril 40 MG TAKE 1 TABLET BY EVERY DAY Active Atorvastatin Calcium 40 MG [...] 07-05-23 Encounters Encounter Location Date Provider Diagnosis Hakeme Nixon MD [address] [place] [address] [place] [phone] 08/10/2024 Hakeem Nixon Type 2 diabetes mellitus [...] R79.9) referral to nephrology/ REFERRAL FA[facility]ED TO [facility] 08/10/2024 Essential hypertension (ICD-10 [...] referral to nephrolo gy/ REFERRAL FAXED TO [facility]EDULING Essential hypertension stable, will cont inue current regiment Colon cancer screening guaiac negative Depression screening negative screen CAD (coronary artery disease) stable, co ntinue current regiment Referrals Referral Date Details 08/10/2024 08/10/2024, ELEVATED BUN, Ajit Delgado Next Appt Details Provider Name:Hakeem clarke, 08/05/2025 08:00:00 AM, [address] [place] [address], [address], [place], [place], [phone], Provider Name:Hakeem Blood ier, 08/12/2025 11:00:00 AM, [address] [facility], [address], [place], [phone], Progress Notes * Rosas SINGHDOB:0 1955 (69 yo M)Acc No.[id number]:08/10/2024 Progress Notes Patient: Rosas CARVAJAL Provider: Jayshree Nixon MD :1955 A ge:69 Y S ex:Male Date:08/10/2024 [facility] [id number] Subjective: * Chief Complaints: * A NNUAL [...] Occupation: weeks/months/years, unemployed. Travel outside of the [place]: no. D rug/Alcohol: A MAX-C (Standard) [...] mg/dL Urine Blood Negative Negative - Specific Tony - Urine 1.015 1.005-1.025 - Urine Protein [...] Notes: referral to nephrology/ REFERRAL FA[facility]ED TO [facility]UL[facility] ? Referral To:Ajit Delgado [...] MD Date: 0 08/10/2024 Generated for Kathy cleveland/Dameon/eTrachelsmitting on: 08/31/2024 11:33 AM EST History and Physical Notes * HPI [...]
--- OUTSIDE RECORDS SUMMARY | 2024-09-07 03:00 | XMS_ITS ---
Demographics Address [address] [place] [address] Mobile Preferred Language en Marital Status unmarried Church Affiliation Unknown Race Ethnic Group or Author Organization Hakeem Nixon MD Address [address] [place], [place] [phone] Care Team Providers Care Diesel Dinkey Engineer Name Role Phone Hakeem Nixon Primary Care Provider Results Component Value Reference Range Notes Potassium Reviewed date:09/07/2024 11:04:39 AM Interpretation: Performing Lab:[facility], [address] [place] [phone] Notes/Report: Potassium 4.5 3.3-5.1 mmol/L Blood Urea Nitrogen Reviewed date:09/07/2024 12:33:18 PM Interpretation: Performing Lab:[facility], [address] [place] [phone] Notes/Report: Blood Urea Nitrogen 17 9-16 mg/dL Creatinine Reviewed date:09/07/2024 12:30:10 PM Interpretation: Performing Lab:[facility], [address] [place] [phone] Notes/Report: Creatinine 1.34 0.5-1.4 mg/dL Estimated Glomerular Filt Rate 53 Chronic Kidney Disease: Estimated GFR < 60 mL/min/1.73m2 Severe Kidney Disease: Estimated GFR < 15 mL/min/1.73m2 REASON FOR VISIT BUN, CREATININE, POTASSIUM Encounters Encounter Location Date Provider Diagnosis Hakeem Nixon MD [address] [place], [place] [phone] 09/07/2024 Hakeem iNxon Essential hypertension I10 and Type 2 diabetes [...] Next Appt Details Provider Name:Hakeem Amy Caitie ier, 08/05/2025 08:00:00 AM, [address], [address], [place], [place], [phone], Provider Name:Hakeem P Kirashainque tricia, 08/12/2025 11:00:00 AM, [address] [facility], [address], [place], [place], [phone], Progress Notes * Rosas SINGHDOB:0 1955 (70 yo M)Acc No.[id number]:09/07/2024 Progress Note Patient: Rosas CARVAJAL Provider: Jayshree Nixon MD :1955 A ge:69 Y S ex:Male Date:09/07/2024 Address: [address] [id number] Subjective: * Chief Complaints: * 1 [...] 09/07/2024 Generated for Kathy cleveland/Dameon/eTransmitting on: 1 08/31/2024 11:31 AM EST
--- OUTSIDE RECORDS SUMMARY | 2024-09-10 03:49 | XMS_ITS ---
Demographics Address [address] [place] [address] Mobile Preferred Language en Marital Status unmarried Lutheran Affiliation Unknown Race Ethnic Group or Author Organization Hakeem Nixon MD Address [address] [place] [phone] Care Team Providers Care Gang Miner Name Role Phone Hakeem Nixon Primary Care Provider REASON FOR VISIT RF tramadol Medications Medication SIG (Take, Route, Fr equency, Duration) Notes Start Date End Date Status traMADol HCl 50 MG 1 tablet as needed O rally Once a day for 30 days 09/10/2024 Active Encounters Encounter Location Date Provider Diagnosis Hakeem Nixon MD [address] [facility] [address] [phone] 09/10/2024 Hakeem Nixon Acute right-sided low back [...] Provider Name:Hakeem clarke, 08/05/2025 08:00:00 AM, [address] [facility] [address], [address] [facility], [place], [place], [phone], Provider Name:Hakeem clarke, 08/12/2025 11:00:00 AM, [address] [facility] [address], [address], [place], [place], [phone], Progress Notes * Her SAMANTHAisraelDOB:0 1955 (69 yo M)Acc No.[id number]:09/10/2024 Patient: Rosas CARVAJAL :1955 A ge:69 Y S ex:Male Address:[address] [place] [address] * Refills Refill traMADol HCl Tablet, 50 MG, Orally, 30 Tablet, 1 tablet as needed, Once a day, 30 days, Refills=2 * true * Date: Generated for Kathy cleveland/Dameon/Niraliitting on: 08/31/2024 11:32 AM EST
--- OUTSIDE RECORDS SUMMARY | 2024-10-27 10:50 | XMS_ITS ---
Demographics Address [address] [place] [address] Mobile Preferred Language en Marital Status unmarried Moravian Affiliation Unknown Race Ethnic Group or Author Organization Hakeem Nixon MD Address [address] [place] [phone] Care Team Providers Care Boat Wrapper Name Role Phone Hakeem Nixon Primary Care Provider REASON FOR VISIT Rf Tramadol and Atorvastatin Medications Medication SIG (Take, Route, Frequency, Duration) Notes Start Date End Date Status traMADol HCl 50 MG 1 tablet as needed O rally Once a day for 30 days 09/10/2024 Active Atorvastatin Calcium 40 MG TAKE 1 TABLET BY MOUTH EVERY DAY Orally Once a day for 30 days Active Encounters Encounter Location Date Provider Diagnosis Hakeem Nixon MD [address] [place] [phone] 10/27/2024 Hakeem Nixon Acute right-sided low back pain with right-sided sciatica M54.41 and CAD (coronary artery disease) I25.10 Assessments Encounter Date Diagnosis (ICD Code) Assessment Notes Treatment Notes Treatment Clinical Notes Section Notes 10/27/2024 Acute right-sided low back pain with right-sided sciatica (ICD-10 - M54.41) 10/27/2024 CAD (coronary artery disease) (ICD-10 - I25.10) Plan Of Treatment Medication Medication Name Sig Start Date Stop Date Notes traMADol HCl 50 MG 1 tablet as needed O rally Once a day for 30 days 09/10/2024 Atorvastatin Calcium 40 MG TAKE 1 TABLET BY MOUTH EVERY DAY Orally Once a day for 30 days Next Appt Details Provider Name:Hakeem Blood ier, 08/05/2025 08:00:00 AM, [address], [address], [place], [place], [phone], Provider Name:Hakeem Blood ier, 08/12/2025 11:00:00 AM, [address], [address], [place], [place], [phone], Progress Notes * ARELY BERNARDORosas DeshpandeDOB:0 1955 (69 yo M)Acc No.[id number]:10/27/2024 Patient: Keerthi BERNARDORosas Deshpande :1955 A ge:69 Y S ex:Male Address:[address] [place] [address] * Refills Refill traMADol HCl Tablet, 50 MG, Orally, 30 Tablet, 1 tablet as needed, Once a day, 30 days, Refills=2 Refill Atorvastatin Calcium Tablet, 40 MG, Orally, 30, TAKE 1 TABLET BY MOUTH EVERY DAY, Once a day, 30 days, Refills=3 * true * Date: Generated for Kathy cleveland/Dameon/Phu on: 08/31/2024 11:33 AM EST
--- OUTSIDE RECORDS SUMMARY | 2024-12-08 06:00 | XMS_ITS ---
Demographics Address [address] [place] [address] Mobile Preferred Language en Marital Status unmarried Muslim Affiliation Unknown Race Ethnic Group or Author Organization Hakeem Nixon MD Address [address] [place] [phone] Care Team Providers Care Engineering Recruiter Name Role Phone Hakeem Nixon Primary Care Provider REASON FOR VISIT refill Medications Medication SIG (Take, Route, Fr equency, Duration) Notes Start Date End Date Status traMADol HCl 50 MG 1 tablet as needed O rally Once a day for 30 days 12/08/2024 Active Encounters Encounter Location Date Provider Diagnosis Hakeem Nixon MD [address] [place] [phone] 12/08/2024 Hakeem Nixon Acute right-sided low back [...] [address] [facility] [address], Suite [facility], [place], [place], [phone], Provider Name:Hakeem clarke, 08/12/2025 11:00:00 AM, [address], [address], [place], [place], [phone], Progress Notes * Annette SINGHkaranDOB:0 1955 (69 yo M)Acc No.[id number]:12/08/2024 Patient: Rosas CARVAJAL :1955 A ge:69 Y S ex:Male Address:[address] [place] [address] * Refills Refill traMADol HCl Tablet, 50 MG, Orally, 30, 1 tablet as needed, Once a day, 30 days, Refills=2 * true * Date: Generated for Kathy cleveland/Dameon/Phu on: 08/31/2024 11:31 AM EST
--- OUTSIDE RECORDS SUMMARY | 2025-02-11 03:00 | XMS_ITS ---
Demographics Address [address] [place] [address] Mobile Preferred Language en Marital Status unmarried Voodoo Affiliation Unknown Race Ethnic Group or Author Organization Hakeem Nixon MD Address [address] [place], [place] [phone] Care Team Providers Care Hearing And Speech Assistant Name Role Phone Hakeem Nixon Primary Care Provider Results Component Value Reference Range Notes Liver Panel Reviewed date:02/11/2025 03:21:09 PM Interpretation: Performing Lab:[address] [phone] Notes/Report: Bilirubin Total 0.3 0.0-1.0 mg/dL Bilirubin Direct 0.1 0.0-0.5 mg/dL Aspartate Amino Transferase 27 5-37 U/L Alanine Aminotransferase 24 0-40 U/L Total Protein 7.0 6.5-8.0 g/dL Albumin Level 4.3 3.5-5.0 g/dL Alkaline Phosphatase 126 39-117 U/L Glucose Fasting Reviewed date:02/11/2025 07:55:55 PM Interpretation: Performing Lab:[address] [phone] Notes/Report: Glucose Fasting 115 60-99 mg/dL A fasting glucose from 100-125 mg/dl is considered impaired (pre-diabetes). Lipid Panel with Reflex Reviewed date:02/11/2025 03:19:52 PM Interpretation: Performing Lab:[facility], [address] [place] [phone] Notes/Report: Triglycerides 101 <150 mg/dL Desirable Triglyceride: [...] A1c Reviewed date:02/11/2025 03:21:27 PM Interpretation: Performing Lab:[facility], [address] [place] [phone] Notes/Report: Hemoglobin A1c % 6.9 <6.0 % [...] average glucose, using the formula of the B2X-Cgkzkxl Average Glucose study (ADAG), Diabetes Care, Vol.31,#8, Feb. 2007 REASON FOR VISIT FASTING LIPIDS Encounters Encounter Location Date Provider Diagnosis Hakeem Nixon MD [address] [place] [address] [address] [place], [place] [phone] 02/11/2025 Hakeem Nixon Type 2 diabetes mellitus [...] 08:00:00 AM, [address], [address], [place], [place], [phone], Provider Name:Hakeem Blood ier, 08/12/2025 11:00:00 AM, [address], [address], [place], [place], [phone], Progress Notes * Rosas SINGHDOB:0 1955 (70 yo M)Acc No.[id number]:02/11/2025 Progress Note Patient: Rosas CARVAJAL Provider: Jayshree Nixon MD :1955 A ge:69 Y S ex:Male Date:02/11/2025 Address: [address] [id number] Subjective: * Chief Complaints: * 1 [...] 02/11/2025 Generated for Kathy cleveland/Dameon/eTransmitting on: 1 08/31/2024 11:32 AM EST
--- OUTSIDE RECORDS SUMMARY | 2025-02-22 09:54 | XMS_ITS ---
Demographics Address [address] [place] [address] Mobile Preferred Language en Marital Status unmarried Congregation Affiliation Unknown Race Ethnic Group or Author Organization Hakeem Nixon MD Address [address] [place] [phone] Care Team Providers Care Information Systems Technician Name Role Phone Hakeem Nixon Primary Care Provider REASON FOR VISIT refill Medications Medication SIG (Take, Route, Frequency, Duration) Notes Start Date End Date Status Metoprolol Tartrate 50 MG TAKE 1 TABLET BY MOUTH TWICE A DAY WITH FOOD for 90 days Active Encounters Encounter Location Date Provider Diagnosis Hakeem Nixon MD [address] [facility] [address] [place] [phone] 02/22/2025 Hakeem Nixon Essential hypertension I10 Assessments Encounter Date Diagnosis (ICD Code) Assessment Notes Treatment Notes Treatment Clinical Notes Section Notes 02/22/2025 Essential hypertension (ICD-10 - I10) Plan Of Treatment Medication Medication Name Sig Start Date Stop Date Notes Metoprolol Tartrate 50 MG TAKE 1 TABLET BY MOUTH TWICE A DAY WITH FOOD for 90 days Next Appt Details Provider Name:Hakeem clarke, 08/05/2025 08:00:00 AM, [address] [place] [address], [address], [phone], Provider Name:Hakeem clarke, 08/12/2025 11:00:00 AM, [address] [place] [address], [address], [phone], Progress Notes * Rosas SINGHDOB:0 1955 (69 yo M)Acc No.[id number]:02/22/2025 Patient: Rosas CARVAJAL :1955 A ge:69 Y S ex:Male Address:[address] [place] [address] * Refills Refill Metoprolol Tartrate Tablet, 50 MG, 180, TAKE 1 TABLET BY MOUTH TWICE A DAY WITH FOOD, 90 days, Refills=3 * true * Date: Generated for Kathy cleveland/Dameon/Niraliitting on: 08/31/2024 11:31 AM EST
--- OUTSIDE RECORDS SUMMARY | 2025-02-26 05:00 | XMS_ITS ---
Demographics Address [address] [place] [address] Mobile Preferred Language en Marital Status unmarried Taoist Affiliation Unknown Race Ethnic Group or Author Organization Hakeem Nixon MD Address [address] [place] [phone] Care Team Providers Care Indigo Vat Tender Cloth Name Role Phone Hakeem Nixon Primary Care Provider Allergies No Known Allergies REASON FOR VISIT 6 MO F/U Medications Medication SIG (Take, Route, Frequency, Duration) Notes Start Date End Date Status Aspirin Low Dose 81 MG TAKE 1 TABLET BY MOUTH EVERY DAY Orally Once a day for 90 days Active Lisinopril 40 MG TAKE 1 TABLET BY DELFINA TH EVERY DAY for 90 Active Metoprolol Tartrate 50 MG TAKE 1 TABLET BY MOUTH TWICE A DAY WITH FOOD for 90 days Active traMADol HCl 50 MG 1 tablet as needed Orally Once a day for 30 days 12/08/2024 Active traMADol HCl 50 MG TAKE 1 TABLET BY DELFINA TH EVERY DAY NEEDED FOR 30 DAYS ORALLY ONCE A DAY Orally Once a day for 30 days 05/12/2024 Active Sildenafil Citrate 100 MG 1 tablet as ne eded Orally Once a day 03/06/2022 Active Atorvastatin Calcium 40 MG TAKE 1 TABLET BY MOUTH EVERY DAY Orally Once a day for 30 days Active oxyCODONE HCl 5 MG 1 tablet as needed Orally every 6 hrs Not-Taking Sildenafil Citrate 100 MG 1 tablet as ne eded Orally Once a day for 30 day(s) 08/10/2024 Active Pantoprazole Sodium 40 MG 1 tablet Orall y Once a day Not-Taking Encounters Encounter Location Date Provider Diagnosis Hakeem Nixon MD [address] [place], [place] [phone] 02/26/2025 Hakeem Nixon Plan Of Treatment Next Appt Details Provider Name:Hakeem Blood ier, 08/05/2025 08:00:00 AM, [address] [place] [address], [address], [place], [place], [phone], Provider Name:Hakeem Blood ier, 08/12/2025 11:00:00 AM, [address] [facility], [address], [place], [phone], Progress Notes * Rosas SINGHDOB:0 1955 (70 yo M)Acc No.[id number]:02/26/2025 Progress Notes Patient: Rosas CARVAJAL Provider: Jayshree Nixon MD :1955 A ge:69 Y S ex:Male Date:02/26/2025 Address: [address] [phone] Subjective: * Chief Complaints: * 1 . 6 MO F/U. * HPI: S ymptom(s): patient is a 69 yo male here for 6 monthfollow up visit. * ROS: G eneral/Constitutional: Denies C hills. D enies F atigue. D enies F ever. D enies H eadache. E NT: Denies S ore throat. R espiratory: Denies C ough. D enies S hortness of breath at rest. D enies S hortness of breath with exertion. G astrointestinal: Denies D iarrhea. D enies N ausea. * Medical History: c olonoscopy 12/2009 w/Dr. Maldonado - repeat 5 years; colonoscopy done on 04/04/18 due in 5 years, NEEDS YEARLY ECHO - done 06/26/17, done 02/2020. * Medications: T aking Aspirin Low Dose 81 MG Tablet Delayed Release TAKE 1 TABLET BY MOUTH EVERY DAY Orally Once a day , Taking traMADol HCl 50 MG Tablet TAKE 1 TABLET BY MOUTH EVERY DAY NEEDED FOR 30 DAYS ORALLY ONCE A DAY Orally Once a day , Taking Sildenafil Citrate 100 MG Tablet 1 tablet as needed Orally Once a day , Taking Sildenafil Citrate 100 MG Tablet 1 tablet as needed Orally Once a day , Taking Atorvastatin Calcium 40 MG Tablet TAKE 1 TABLET BY MOUTH EVERY DAY Orally Once a day , Taking traMADol HCl 50 MG Tablet 1 tablet as needed Orally Once a day , Taking Lisinopril 40 MG Tablet TAKE 1 TABLET BY MOUTH EVERY DAY , Taking Metoprolol Tartrate 50 MG Tablet TAKE 1 TABLET BY MOUTH TWICE A DAY WITH FOOD , Not-Taking/PRN Pantoprazole Sodium 40 MG Tablet Delayed Release 1 tablet Orally Once a day , Not-Taking/PRN oxyCODONE HCl 5 MG Tablet 1 tablet as needed Orally every 6 hrs * Allergies: N .K.D.A. Objective: * Vitals: * P ast Orders: L ab:Lipid Panel with Reflex (Order Date - 02/11/2025) (Collection Date & Time - 02/11/2025 08:00 AM) Value Reference Range Triglycerides 101 <150 - mg/dL Cholesterol 111 <200 - mg/dL LDL Cholesterol Calculated 57 <100 - mg/dL HDL Cholesterol 34 L >40 - mg/dL L ab:Hemoglobin A1c (Order Date - 02/11/2025) (Collection Date & Time - 02/11/2025 08:00 AM) Value Reference Range Hemoglobin A1c % 6.9 H <6.0 - % Estimated Average Glucose 151 - mg/dL L ab:Liver Panel (Order Date - 02/11/2025) (Collection Date & Time - 02/11/2025 08:00 AM) Value Reference Range Bilirubin Total 0.3 0.0-1.0 - mg/dL Bilirubin Direct 0.1 0.0-0.5 - mg/dL Aspartate Amino Transferase 27 5-37 - U/L Alanine Aminotransferase 24 0-40 - U/L Total Protein 7.0 6.5-8.0 - g/dL Albumin Level 4.3 3.5-5.0 - g/dL Alkaline Phosphatase 126 H 39-117 - U/L L ab:Glucose Fasting (Order Date - 02/11/2025) (Collection Date & Time - 02/11/2025 08:00 AM) Value Reference Range Glucose Fasting 115 H 60-99 - mg/dL Assessment: Plan: * Treatment: * * The named appointment provid er may or may not be the originator of this progress note, and it is not deemed complete until electronically signed by the appointment provider. Sign off status: Pending * Provider: Jayshree Nixon MD Date: 0 02/26/2025 Generated for Kathy cleveland/Dameon/Phu on: 1 08/31/2024 11:33 AM EST History and Physical Notes * HPI (History of Present Illness) Category Sub-Category Detail Notes Category Not es Symptom(s) patient is a 69 yo male here for 6 monthfollow up visit
--- OUTSIDE RECORDS SUMMARY | 2025-04-01 05:37 | XMS_ITS ---
Demographics Address [address] [place] [address] Mobile Preferred Language en Marital Status unmarried Orthodox Affiliation Unknown Race Ethnic Group or Author Organization Hakeem Nixon MD Address [address] [place] [phone] Care Team Providers Care Rewinder Operator Name Role Phone Hakeem Nixon Primary Care Provider [phone] REASON FOR VISIT REFILL TRAMADOL Medications Medication SIG (Take, Route, Fr equency, Duration) Notes Start Date End Date Status traMADol HCl 50 MG TAKE 1 TABLET BY DELFINA TH EVERY DAY NEEDED FOR 30 DAYS ORALLY ONCE A DAY Orally Once a day for 30 days 04/01/2025 Active Encounters Encounter Location Date Provider Diagnosis Hakeem Nixon MD [facility] [address] [place] [phone] 04/01/2025 Hakeem Nixon Plan Of Treatment Medication Medication Name Sig Start Date Stop Date Notes traMADol HCl 50 MG TAKE 1 TABLET BY DELFINA TH EVERY DAY NEEDED FOR 30 DAYS ORALLY ONCE A DAY Orally Once a day for 30 days 04/01/2025 Next Appt Details Provider Name:Hakeem clarke, 08/05/2025 08:00:00 AM, [address] [place] [address], [place] [address], [place], [place], [phone], Provider Name:Hakeem clarke, 08/12/2025 11:00:00 AM, [address] [place] [address], [place] [address], [place], [place], [phone], Progress Notes * Rosas SINGHDOB:0 1955 (70 yo M)Acc No.[id number]:04/01/2025 Patient: Rosas CARVAJAL :1955 A ge:70 Y S ex:Male Address:[address] [place] [address] * Refills Refill traMADol HCl Tablet, 50 MG, Orally, 30 Tablet, TAKE 1 TABLET BY MOUTH EVERY DAY NEEDED FOR 30 DAYS ORALLY ONCE A DAY, Once a day, 30 days, Refills=2 * true * Date: Generated for Kathy cleveland/Dameon/Niraliitting on: 08/31/2024 11:32 AM EST
--- OUTSIDE RECORDS SUMMARY | 2025-06-30 11:32 | XMS_ITS | Patient Health Record ---
Demographics Address [address] [place] [address] Mobile Preferred Language en Marital Status unmarried Nondenominational Affiliation Unknown Race Ethnic Group or Author Organization Hakeem Nixon MD Address [address] [place], [place] [id number] Care Team Providers Care Room Cooler Installer Name Role Phone Hakeem Nixon Primary Care Provider Allergies No Known Allergies Results Component Value Reference Range Notes Complete Blood Count Auto Di ff Reviewed date:08/04/2024 01:13:03 PM Interpretation: Performing Lab:[facility], [address] [place] [phone] Notes/Report: White Blood Count 8.3 4.8-10.8 X10*3/uL [...] NRBC Abs Auto 0.000 0.0-0.012 X10*3/uL Comprehensive [place]. Panel Fa Reviewed date:08/10/2024 02:18:47 PM Interpretation:08-10-24 Performing Lab:[address] [address] Notes/Report: Sodium 144 135-145 mmol/L Potassium 5.2 [...] Panel Reviewed date:08/04/2024 12:24:02 PM Interpretation: Performing Lab:[address] [phone] Notes/Report: Triglycerides 107 <150 mg/dL Desirable Triglyceride: [...] (Free>4and<10) Reviewed date:08/04/2024 12:40:01 PM Interpretation: Performing Lab:[facility], [address] [place] [phone] Notes/Report: PSA,Total (Free>4and<10) 0.77 0.00-4.00 ng/mL A [...] Random Reviewed date:08/04/2024 01:00:09 PM Interpretation: Performing Lab:[facility], [address] [place] [phone] Notes/Report: Creatinine Urine 82.52 Microalbumin Urine 28.0 Microalbum/Creatinine Ratio Ur 33.9 <30 ug/mg cr Albumin/Creatinine Ratio Reference Ranges: Normal: < 30 ug/mg creatinine Microalbuminuria: 30 - 300 ug/mg creatinine Clinical Albuminuria: > 300 ug/mg creatinine Hemoglobin A1c Reviewed date:08/04/2024 12:30:48 PM Interpretation: Performing Lab:[facility], [address] [place] [phone] Notes/Report: Hemoglobin A1c % 6.8 <6.0 % [...] average glucose, using the formula of the W5T-Awwwusr Average Glucose study (ADAG), Diabetes Care, Vol.31,#8, Feb. 2007 UA ClnCatch+Micro w/rflx Cul t Reviewed date:08/04/2024 01:26:51 PM Interpretation: Performing Lab:[address] [address] Notes/Report: Urine, Clean Catch Color Urine Yellow Appearance Urine Clear PH 6.5 5.0-9.0 Glucose Urine UA Negative Negative mg/dL Urine Blood Negative Negative Specific [place] - Urine 1.015 1.005-1.025 Urine Protein Negative Neg-Trace mg/dL Urine Ketones Negative Negative mg/dL Nitrite Urine Negative Negative Leukocyte Esterase Urine Negative Negative RBC Urine 0-2 0-2 /HPF WBC Urine 0-5 0-5 /HPF Squamous Epithelial Cell Urine 0-2 0-2 /HPF Bacteria Urine None Seen None Seen Hyaline Casts Urine 0-2 0-2 /LPF Potassium Reviewed date:09/07/2024 11:04:39 AM Interpretation: Performing Lab:[facility], [address] [place] [phone] Notes/Report: Potassium 4.5 3.3-5.1 mmol/L Blood Urea Nitrogen Reviewed date:09/07/2024 12:33:18 PM Interpretation: Performing Lab:[facility], [address] [place] [phone] Notes/Report: Blood Urea Nitrogen 17 9-16 mg/dL Creatinine Reviewed date:09/07/2024 12:30:10 PM Interpretation: Performing Lab:[facility] [address] Notes/Report: Creatinine 1.34 0.5-1.4 mg/dL Estimated Glomerular Filt Rate 53 Chronic Kidney Disease: Estimated GFR < 60 mL/min/1.73m2 Severe Kidney Disease: Estimated GFR < 15 mL/min/1.73m2 Liver Panel Reviewed date:02/11/2025 03:21:09 PM Interpretation: Performing Lab:[address] [phone] Notes/Report: Bilirubin Total 0.3 0.0-1.0 mg/dL Bilirubin Direct 0.1 0.0-0.5 mg/dL Aspartate Amino Transferase 27 5-37 U/L Alanine Aminotransferase 24 0-40 U/L Total Protein 7.0 6.5-8.0 g/dL Albumin Level 4.3 3.5-5.0 g/dL Alkaline Phosphatase 126 39-117 U/L Glucose Fasting Reviewed date:02/11/2025 07:55:55 PM Interpretation: Performing Lab:[facility], [address] [place] [phone] Notes/Report: Glucose Fasting 115 60-99 mg/dL A fasting glucose from 100-125 mg/dl is considered impaired (pre-diabetes). Lipid Panel with Reflex Reviewed date:02/11/2025 03:19:52 PM Interpretation: Performing Lab:[address] [address] Notes/Report: Triglycerides 101 <150 mg/dL Desirable Triglyceride: [...] A1c Reviewed date:02/11/2025 03:21:27 PM Interpretation: Performing Lab:[facility], [address] [place] [phone] Notes/Report: Hemoglobin A1c % 6.9 <6.0 % [...] average glucose, using the formula of the U9T-Huoznei Average Glucose study (ADAG), Diabetes Care, Vol.31,#8, Feb. 2007 US renal doppler Reviewed date:01/14/2025 05:16:26 PM Interpretation: Performing Lab: Notes/Report: [address] [address] Ultrasound Report Signed Patient: Rosas Kirkland MR#: [id number] : 1955 Acct:[id number] Age/Sex: 69 / M ADM Date: 01/06/25 Loc: . Attending Dr: Gustabo Rodarte MD Ordering Physician: Gustabo Rodarte MD Date of Service: 01/06/25 Procedure(s): US renal doppler Accession Number(s): [id number] cc: Hakeem Nixon MD; Gustabo Rodarte MD [...] 01/06/25 1201 DD/ 0900 TD/TT: 01/06/25 0937 Professor Of Business Administration: [address] [address] Ultrasound Report Signed Patient: Rosas Kirkland MR#: [id number] : 1955 Acct:[id number] Age/Sex: 69 / M ADM Date: 01/06/25 Loc: HO.US Attending Dr: Gustabo Rodarte MD Ordering Physician: Gustabo Rodarte MD Date of Service: 01/06/25 Procedure(s): US don al doppler Accession Number(s): [id number] cc: Hakeem Nixon MD; Gustabo Rodarte MD [...] 01/06/25 1201 DD/ 0900 TD/TT: 01/06/25 0937 Professor Of Business Administration: US renal BI Reviewed date:01/14/2025 05:16:36 PM Interpretation: Performing Lab: Notes/Report: [address] [address] Ultrasound Report Signed Patient: Rosas Kirkland MR#: [id number] : 1955 Acct:[id number] Age/Sex: 69 / M ADM Date: 01/06/25 Loc: HO.US Attending Dr: Gustabo Rodarte MD Ordering Physician: Gustabo Rodarte MD Date of Service: 01/06/25 Procedure(s): US renal BI Accession Number(s): [id number] cc: Hakeem Nixon MD; Gustabo Rodarte MD [...] 01/06/25 1201 DD/ 0900 TD/TT: 01/06/25 0937 Professor Of Business Administration: [address] [address] Ultrasound Report Signed Patient: Rosas Kirkland MR#: [id number] : 1955 Acct:[id number] Age/Sex: 69 / M ADM Date: 01/06/25 Loc: HO.US Attending Dr: Gustabo Rodarte MD Ordering Physician: Gustabo Rodarte MD Date of Service: 01/06/25 Procedure(s): US don [place]ales Accession Number(s): [id number] cc: Hakeem Nixon MD; Gustabo Rodarte MD [...] 01/06/25 1201 DD/ 0900 TD/TT: 01/06/25 0937 Professor Of Business Administration: Chikis Hinojosa Reviewed date:02/11/2025 03:10:15 PM Interpretation: Performing Lab:[facility], [address] [place] [phone] Notes/Report: Chikis Hinojosa See Note Specimen held untested for 24 hours; Call to request Chemistry testing. Electrolytes Reviewed date:04/01/2025 04:26:32 PM Interpretation: Performing Lab:[address] [address] Notes/Report: Sodium 142 135-145 mmol/L Potassium 4.3 3.3-5.1 mmol/L Chloride 108 96-108 mmol/L Carbon Dioxide 26 22-29 mmol/L Anion Gap 12 12-20 Blood Urea Nitrogen Reviewed date:04/01/2025 04:26:08 PM Interpretation: Performing Lab:[facility], [address] [place] [phone] Notes/Report: Blood Urea Nitrogen 17 9-16 mg/dL Creatinine Reviewed date:04/01/2025 12:39:00 PM Interpretation: Performing Lab:[facility], [address] [place] [phone] Notes/Report: Creatinine 1.46 0.5-1.4 mg/dL Estimated Glomerular [...] W/U Status Risk Notes Problem Erectile dysfunction (964434694) Erectile dysfunction (N52.9) Active confirmed Problem 1084806 Arthritis (M19.90) Active confirmed Problem 396510229 Tubular adenoma of colon (D12.6) Active confirmed Problem 99128282 Essential hypertension (I10) Active confirmed Problem 41563127 Heart murmur (R01.1) Active confirmed Problem Induratio penis plastica (5036326) Peyronie disease (N48.6) Active confirmed Problem Current smoker (23427317) Current smoker (F17.200) Active confirmed Problem 57673552 Sciatica of left side (M54.32) Active confirmed Problem 01760965 Aortic valve stenosis, unspecified etiology (I35.0) Active confirmed Problem Coronary artery disease (97444440) CAD (coronary artery disease) (I25.10) Active confirmed Problem Sciatica (73770749) Acute right-sided low back pain with right-sided sciatica (M54.41) Active confirmed Problem 7870971 Peyronie's disea se (N48.6) Active confirmed Problem 343119571 Type 2 diabetes mellitus without complication, without long-term current use of insulin (E11.9) Active confirmed Problem 909606 Valvular heart disease (I38) Active confirmed Problem 688890085 Anticoagulation adequate (Z79.01) Active confirmed Problem 8084995256973 S/P AVR (aortic valve replacement) (Z95.2) Active [...] Hakeem Nixon MD [address] [place] [id number] 08/04/2024 Hakeem Nixon Blood tests for routine general physical examination Z00.00 ; Essential hypertension I10 and Type 2 diabetes mellitus without complication, without long-term current use of insulin E11.[address] MD [address] [place] [id number] 09/07/2024 Hakeem Nixon Essential hypertension I10 and Type 2 diabetes mellitus without complication, without long-term current use of insulin E11.9 Hakeem Nixon MD [address] [place] [id number] 02/11/2025 Hakeem Nixon Type 2 diabetes mellitus without complication, without long-term current use of insulin E11.9 and CAD (coronary artery disease) I25.10 Hakeem Nixon MD [address] [place] [id number] 08/10/2024 Hakeem Nixon Type 2 diabetes mellitus without complication, without long-term current use of insulin E11.9 ; Erectile dysfunction N52.9 ; Acute right-sided low back pain with right-sided sciatica M54.41 ; Elevated BUN R79.9 ; Essential hypertension I10 ; Colon cancer screening Z12.11 ; Depression screening Z13.31 and CAD (coronary artery disease) I25.10 Hakeem Nixon MD [address] [place] [id number] 09/10/2024 Hakeem Nixon Acute right-sided lo w back pain with right-sided sciatica M54.41 Hakeem Nixon MD [address] [place] [id number] 10/27/2024 Hakeem Nixon Acute right-sided lo w back pain with right-sided sciatica M54.41 and CAD (coronary artery disease) I25.10 Hakeem Nixon MD [address] [place] [id number] 12/08/2024 Hakeem Nixon Acute right-sided lo w back pain with right-sided sciatica M54.41 Hakeem Nixon MD [address] [place] [id number] 02/22/2025 Hakeem Nixon Essential hypertension I10 Hakeem Nixon MD [address] [place] [id number] 04/01/2025 Hakeem Nixon Assessments Encounter Date Diagnosis [...] R79.9) referral to nephrology/ REFERRAL FAXED TO [facility] FOR SCHEDULING 08/10/2024 Essential hypertension (ICD-10 - I10) stable, will continue current regiment 08/10/2024 Colon cancer screening (ICD-10 - Z12.11) guaiac negative 08/10/2024 Depression screening (ICD-10 - Z13.31) negative screen 08/10/2024 CAD (coronary artery disease) (ICD-10 - I25.10) stable, continue current regiment Plan Of Treatment Next Appt Details Provider Name:Hakeem clarke, 08/05/2025 08:00:00 AM, [address] [place] [address], [address], [place], [place], [id number], Provider Name:Hakeem Reyes Kirashanique hair, 08/12/2025 11:00:00 AM, [address], [address], [place], [phone], Insurance Providers Payer Name Payer Address Payer Phone Subscriber Number Group Number Insured Name Patient Relationship to Insured Coverage Start Date Coverage End Date [employer] E [address] [place], [place] [id number] Rosas Kirkland Self - patient is the insured MEDICARE NHIC [address] [place] [address] [id number] Rosas Kirkland Self - patient is the insured Medical (General) History Medical History History ICD Code colonoscopy 12/2009 w/Dr. Choudhary fford - repeat 5 years; colonoscopy done on 04/04/18 due in 5 years NEEDS YEARLY ECHO - done 06/26/17, done 02/2020
--- OUTSIDE RECORDS SUMMARY | 2025-06-30 11:32 | XMS_ITS | Patient Health Record ---
Demographics Address [address] [place] [address] Preferred Language en Marital Status Unknown Sabianism Affiliation Unknown Race Unknown Ethnic Group or Author Organization [facility] Address [address] [place] [address] Support Name Relationship Address Phone ARLENE MCGEE Emergency Contact [address] [place] [address] WILLIS SINGH Guarantor Unknown Care Team Providers Care Full Fashioned Garment Knitter Name Role Phone Hakeem Nixon MD Primary Care Provider Yoseph Gonzales Jr [phone] Allergies No Known Allergies Reason For Referral [...] Status Risk Notes Problem Colon cancer screening (071685616) Colon cancer screening (Z12.11) Active confirmed Problem Pre-procedure evaluation check (624386583) Encounter for other preprocedural examination (Z01.818) Active confirmed Problem Long-term current use of antiplatelet drug (573063949407394 ) Long-term use of aspirin therapy (Z79.82) Active confirmed Plan Of Treatment Future Test Test Name Order Date COLONOSCOPY 08/29/2017 COLONOSCOPY 09/30/2023 Insurance Providers Payer Name Payer Address Payer Phone Subscriber Number Group Number Insured Name Patient Relationship to Insured Coverage Start Date Coverage End Date [facility] [address] [place], [place] [id number] WILLIS SINGH Self - patient is the insured Medical (General) History Medical History History ICD Code Hypertension Back pain/DJD Aortic stenosis status post aVR, non-rheumatic mitral stenosis, coronary disease Surgical History Surgery Date(Month/Year) Hernia repair Cardiac catheterization 07/25: Nonobstruc tive coronary disease
--- OUTSIDE RECORDS SUMMARY | 2025-06-30 11:33 | XMS_ITS | Clinical Summary ---
Demographics Address [address] [place] [address] Work Phone Preferred Language es Marital Status Unknown [employer] Affiliation Unknown Race Other Race Ethnic Group Unknown Author Organization [employer] Address [address] [facility] [address] [place] [address] Care Team Providers Care Taxation Accountant Name Role Phone Unavailable Primary Care Provider [...]
[2025-06-30 11:42] VITALS: BP 130/70; PULSE 62; O2SAT 97; BMI 29.0
--- NOTE | 2025-06-30 11:42 | HO.NEPHOV_ITS ---
Vital Signs 06/30/25 11:42 Height 5 ft 5 in Weight 174 lb BMI 29.0 BP 130/70 Blood Pressure Location Rt brachial Position Sitting Pulse 62 Pulse Source Pulse Oximeter Pulse Oximetry (%) 97 Oxygen Delivery Method Room Air Intake Visit Reasons: 3 mo f/u w/ labs Medical Office Secretary Required: No Accompanied by: Self / Same As Patient Allergies No Known Allergies Allergy (Verified 06/30/25 11:44) HPI Comments Details: Rosas was seen in follow up for CKD. He has H/O and had undergone bioprosthetic aortic valve replacement. He had undergone cardiac catheterization at that time and had atherosclerotic disease which did not need any CABG. He is not a diabetic but hypertensive. He has proteinuria. He is known to have arthritis but denies taking excessive NSAID's. He denies chest pain, edema, SOB, PND, orthopnea, hematuria or orthostatic symptoms. He is on ACEI. He does not have any epistaxis, photosensitivity, skin rashes, joint swelling, H/O CHF, carotid stenosis, PAD or known ALEXIA. His serum creatinine is marginally up from baseline [facility] Medical History (Updated 06/30/25 @ 11:58 by Gustabo Rodarte MD) Non-rheumatic mitral valve stenosis Aortic stenosis Back pain Essential hypertension Atherosclerotic cardiovascular disease Surgical History H/O colonoscopy Hx of hernia repair History of cardiac catheterization (~08/07/17) History of aortic valve replacement (~09/27/17) Family History Father No problems noted. Mother No problems noted. Social History Alcohol intake: current Alcohol intake frequency: a few times a week Patient Tobacco Use Status: Current everyday Tobacco user Tobacco use type: Cigarette Cigarettes Per Day: 4 Years Smoked: 60 Current occupational status: employed and disabled Current occupation: [employer] Review of Systems Const All systems reviewed & are unremarkable except as noted in HPI and below Physical Exam Vital Signs: Last Vital Signs Pulse 62 06/30/25 11:42 BP 130/70 06/30/25 11:42 Pulse Ox 97 06/30/25 11:42 Oxygen Delivery Method Room Air 1224/25 11:42 BMI result Body Mass Index 29.0 Const General: comfortable and no acute distress Orientation/consciousness: patient oriented x3 HEENT Head: Yes normocephalic Mouth: Normal oral and palatal mucosa present Eyes EOM: EOMs intact bilaterally Neck Neck: Yes supple Resp Auscultation: clear to auscultation bilaterally Cardio Jugular venous distension: no JVD Rate: regular rate GI Palpation (GI): Soft to palpation Auscultation: normal bowel sounds General: Yes no CVA tenderness Back/Spine/Pelvis Back: no CVA tenderness Skin General skin exam: no rashes or lesions noted Neuro General: patient oriented x3 and moves all extremities Extrem General: Yes no pedal edema Results Reviewed Nephrology Results: Sodium, (135-145) 140 mmol/L 06/28/25 Potassium, (3.3-5.1) 5.0 mmol/L 06/28/25 Chloride, (96-108) 106 mmol/L 06/28/25 Carbon Dioxide, (22-29) 26 mmol/L 06/28/25 BUN, (9-16) 22 mg/dL H 06/28/25 Creatinine, (0.5-1.4) 1.86 mg/dL H 06/28/25 Calcium, (8.4-10.2) 9.5 mg/dL 11/25/24 Phosphorus, (2.7-4.5) 3.0 mg/dL 11/25/24 PTH Intact, (8.7-77.1) 122.5 pg/mL H 11/25/24 Urine Protein, (Neg-Trace) Trace mg/dL 06/28/25 Urine Creatinine 210.17 mg/dL 06/28/25 Protein/Creatinin Ratio, (<0.2) 0.08 06/28/25 Renal US 01/06/25 Assessment & Plan Assessment & Plan (1) KARELY (acute kidney injury): Code(s): N17.9 - Acute kidney failure, unspecified Category: Medical (2) CKD stage 3a, GFR 45-59 ml/min: Code(s): N18.31 - Chronic kidney disease, stage 3a Category: Medical (3) Hypertension: Code(s): I10 - Essential (primary) hypertension Category: Medical Qualifiers: Hypertension type: primary hypertension Qualified Code(s): I10 - Essential (primary) hypertension Plan Rosas has CKD due to vascular disease. He has atherosclerotic CAD. His renal USS and Doppler of renal arteries were reviewed . He needs a follow up renal imaging. He had been tolerating ACEI. His serum creatinine has gone up marginally. He is going to improve hydration and repeat labs. If his serum creatinine does not settle down to baseline, I may have to back off on ACEI. I shall consider initiating him on SGLT2 i with time . He avoids NSAID's. Further management is pending evolving data. Answered all questions. Orders: Orders Blood Urea Nitrogen 1 Month N17.9 - Acute kidney failure, unspecified Creatinine 1 Month N17.9 - Acute kidney failure, unspecified Electrolytes 1 Month N17.9 - Acute kidney failure, unspecified Coding Level of Care Code Est Pt Level 4 (05058) Diagnoses KARELY (acute kidney injury) N17.9 CKD stage 3a, GFR 45-59 ml/min N18.31 Primary hypertension I10 Hypertension type: primary hypertension
== END 2025-06-30 12:01 | disposition home or self-care (01) ==
LOC: HO.HKA 11:27
PROVIDERS: PCP Internal Medicine; Visit Provider Internal Medicine Nephrology
DX: N17.9 Acute kidney failure, unspecified (principal); N18.31 Chronic kidney disease, stage 3a; I10 Essential (primary) hypertension
CPT/HCPCS: 99214

== ENCOUNTER → 2025-06-30 11:26 | Outpatient (BNVA) | payer MEDICARE, SELFPAY | PROVIDERS: PCP Internal Medicine; Visit Provider Internal Medicine Nephrology | DX: I12.9 Hypertensive chronic kidney disease with stage 1 through stage 4 chronic kidney disease, or unspecified chronic kidney disease (principal); N18.31 Chronic kidney disease, stage 3a; N17.9 Acute kidney failure, unspecified; I25.10 Atherosclerotic heart disease of native coronary artery without angina pectoris; F17.210 Nicotine dependence, cigarettes, uncomplicated | CPT/HCPCS: 99212 ==